=== PATIENT | male | born 1960 | race Caucasian/White ===

== ENCOUNTER 2020-11-14 16:39 | Inpatient (IN) | payer MEDICAID, SELFPAY ==
[2020-11-14] VITALS (7 sets, daily range): BP systolic 129–190; BP diastolic 80–130; PULSE 84–148; RESP 16–36; TEMP 35.8; O2SAT 95–99; BMI 21.9
--- NOTE | ~2020-11-14 | XR_ITS ---
EXAMINATION: XR CHEST CLINICAL INFORMATION: Shortness of breath. COPD. COMPARISON: Chest x-ray 07/21/2018 TECHNIQUE: Frontal portable view of the chest was obtained. 5:05 PM FINDINGS: There is a small subtle hazy airspace opacity in the mid lower lung involving both the right and left lungs. These are new since prior chest x-ray 07/21/2018. No focal consolidation. No pleural effusion or pneumothorax. Heart size is normal. Cardiac and mediastinal contours are normal. There is no pulmonary vascular congestion. Orthopedic plate and screw at lower cervical spine. XR/XR chest 1V IMPRESSION: Small subtle hazy airspace opacities in the mid lower lung bilaterally. Could be infectious or inflammatory in etiology. Follow-up PA lateral view of chest would be helpful.
--- NOTE | 2020-11-14 16:44 | ECG_ITS ---
Test Reason : DSYPNEA Blood Pressure : / mmHG Vent. Rate : 144 BPM Atrial Rate : 144 BPM P-R Int : 130 ms QRS Dur : 076 ms QT Int : 280 ms P-R-T Axes : 090 073 061 degrees QTc Int : 433 ms Poor data quality Sinus tachycardia Biatrial enlargement Abnormal ECG When compared with ECG of 16-JUL-2018 17:31, Vent. rate has increased BY 61 BPM Poor data quality in current ECG precludes serial comparison Referred By: Emma Wray Electronically Signed By:ERNESTO TORRES MD
[2020-11-14] MEDS: methylPREDNISolone Sod Succ/PF 125 MG/2 ML VIAL IVPUSH (16:54)
[2020-11-14] MEDS: Magnesium Sulfate/H2O 2 GM/50 ML PIGGYBACK IV (16:54)
[2020-11-14] MEDS: 0.9 % Sodium Chloride 1,000 ML 999 ML IVCONT ×2 (16:55→18:04)
[2020-11-14 16:56] LABS: MANUAL DIFF FLAG NO
[2020-11-14] MEDS: Albuterol Sulfate (0.083%) 2.5 MG/3 ML VIAL.NEB 10 MG INHALE (16:57)
[2020-11-14 16:58] LABS: Basophils Percent Auto 0.2 % (0-2); Eosinophils Absolute Auto 0.1 X10*3/uL (0.0-0.4); Eosinophils Percent Auto 1.1 % (0-4); Hematocrit 46.6 % (42-52); Hemoglobin 16.1 g/dl (14.0-18.0); Imm Gran Abs Auto 0.04 X10*3/uL (0.00-0.03); Imm Gran Pct Auto 0.4 % (0.0-0.4); Lymphocytes Absolute Auto 1.9 X10*3/uL (1.2-4.9); Lymphocytes Percent Auto 19.8 % (20-40); Mean Corpuscular HGB Conc 34.5 g/dl (31.0-36.0); Mean Corpuscular Hemoglobin 32.8 pg (27.0-33.0); Mean Corpuscular Volume 94.9 fL (80-98); Mean Platelet Volume 8.4 fL (9.4-12.4); Monocytes Absolute Auto 0.6 X10*3/uL (0.1-1.2); Monocytes Percent Auto 6.1 % (2-11); Neutrophils Absolute Auto 6.9 X10*3/uL (2.0-8.3); Neutrophils Percent Auto 72.4 % (45-73); Platelet Count 409 X10*3/uL (160-400); Red Blood Count 4.91 X10*6/uL (4.60-5.80); Red Cell Distribution Width 12.3 % (11.0-16.0); White Blood Count 9.6 X10*3/uL (4.8-10.8)
[2020-11-14 17:03] LABS: INTERNATIONAL NORM RATIO 1.1 (0.9-1.1); Prothrombin Time 12.5 SEC (10.8-13.0)
--- NOTE | 2020-11-14 17:11 | ED.GENADULT ---
HPI - General Adult General Chief complaint: Dyspnea Stated complaint: diff breathing Time Seen by Provider: 11/14/20 16:43 Source: EMS Mode of arrival: EMS Limitations: other (Shortness of breath) History of Present Illness HPI narrative: Patient comes to emergency room complaining of shortness of breath. Patient states it happens approximately 2 times a year that he has COPD exacerbations, triggered by the cold weather. Per EMS, patient was found at the bottom of the stairs sitting, gasping for air. Patient was started on CPAP, did not get any medications, brought to emergency room. Initial oxygen saturation 80% on room air. Patient denies chest pain MD complaint: Shortness of breath Related Data Home Medications Medication Instructions Recorded Confirmed albuterol sulfate [ProAir HFA] 2 puff INHALATION Q4H PRN 11/14/20 11/14/20 budesonide-formoterol [Symbicort] 2 puff PO BID 11/14/20 11/14/20 ipratropium-albuterol [Combivent 1 puff PO QID 11/14/20 11/14/20 Respimat] metoprolol tartrate 12.5 mg PO BID 11/14/20 11/14/20 paroxetine HCl 30 mg PO DAILY 11/14/20 11/14/20 Allergies Allergy/AdvReac Type Severity Reaction Status Date / Time No Known Allergies Allergy Unverified 06/05/20 19:34 [No Known Allergies*] Review of Systems Review of Systems: Constitutional : No Weight loss, No Fever, No Chills, No Night Sweats, No Fatigue, No Malaise ENT/Mouth : No Hearing loss, No Ear Pain, No Nasal Congestion, No Sinus Pain, No Hoarseness, No sore throat, No Rhinorrhea, No Swallowing Difficulty Eyes: No Eye Pain, No Swelling, No Redness, No Foreign Body, No Discharge, No Vision Changes Cardiovascular : No Chest Pain, No SOB, No Dyspnea on Exertion, No Orthopnea, No Edema, No Palpitations Respiratory : Complaining of cough, more sputum production, wheezing, No Smoke Exposure, complaining of Dyspnea Gastrointestinal : No Nausea, No Vomiting, No Diarrhea, No Constipation, No abdominal Pain, No Hematochezia, No Melena Genitourinary : no irregular bleeding, No Dysuria, No Urinary Frequency, No Hematuria, No Urinary Incontinence, No Urgency, No Flank Pain, No Urinary Flow Changes, No Hesitancy Musculoskeletal : No joint pain, No Myalgias, No Joint Swelling Skin : No Skin Lesions, No rash Neuro : No Weakness, No Numbness, No Paresthesias, No Loss of Consciousness, No Dizziness, No Headache Psych : No Anxiety/Panic, No Depression, No SI/HI/AH/VH, No Social Issues, Heme/Lymph: No Bruising, No Bleeding,No Lymphadenopathy Endocrine : No Polyuria, No Polydipsia, No Temperature Intolerance REPLACED BY [facility] Past Medical History Medical History COPD (chronic obstructive pulmonary disease) Social History Social History Household Members: Family Housing: House Do you presently have visiting nurse or other home services: No Smoked in Last 30 Days: No Use of substances other than those prescribed or required for medical reasons: No Have you been hit, kicked, punched, or otherwise hurt by someone within the past year? If so, by whom?: No Do you feel safe in your current relationship?: Yes Is there a partner from a previous relationship who is making you feel unsafe now?: No Are you made to feel afraid or neglected: No Advance Directives: No Advance Directives Information Provided: Yes Do you have thoughts of harming others: None Do you have a plan to hurt others: No Plan Recently lost weight without trying: No service: No Current occupational status: unemployed Physical Exam Vital Signs: Vital Signs: Last Vital Signs Temp 96.5 F L 11/14/20 23:47 Pulse 84 11/14/20 23:47 Resp 16 11/14/20 23:47 BP 154/80 H 11/14/20 23:47 Pulse Ox 97 11/14/20 23:47 Body Mass Index 21.9 Appearance: Alert. Oriented X3. In moderate distress due to shortness of breath, very anxious Eyes: Pupils equal, round and reactive to light. ENT: Pharynx normal. Neck: Normal inspection. Neck supple. No lymph nodes noted. No crepitus CVS: Normal heart rate and rhythm. Pulses normal. Normal S1 and S2 Respiratory: Moderate respiratory distress, decreased breath sounds bilaterally, bilateral mild wheezing no rales Abdomen: Soft and nontender. No rigidity. No distention. good BS x4 Skin: Skin warm and dry. Normal skin color. Normal skin turgor. Extremities: No lower extremity edema. No lower extremity edema. No Lacerations. No Rash Neuro: Oriented X 3. No motor deficit. No sensory deficit. Moving all extermities. No slurred speech. Course Course Course Narrative: On arrival to the emergency room, patient was put on BiPAP for an hour. Patient tolerated it well. Patient being weaned off. Currently on 4 L nasal cannula, oxygen saturation is 98%. Patient likely having a COPD exacerbation, lactic acid elevation likely secondary to prolonged hypoxia, sepsis is not suspected at this time. Patient has already been treated with levofloxacin and IV fluids. Patient's troponin 45.7, no ST changes on EKG, likely secondary to hypoxia and demand ischemia. Patient has no chest pain. Medical Decision Making Lab Data Result diagrams: 11/14/20 16:50 11/14/20 16:50 Labs: Lab Results 11/14/20 11/14/20 11/14/20 Range/Units 16:50 16:50 16:50 WBC 9.6 (4.8-10.8) X10*3/uL RBC 4.91 (4.60-5.80) X10*6/uL Hgb 16.1 (14.0-18.0) g/dl Hct 46.6 (42-52) % MCV 94.9 (80-98) fL MCH 32.8 (27.0-33.0) pg MCHC 34.5 (31.0-36.0) g/dl RDW 12.3 (11.0-16.0) % Plt Count 409 H (160-400) X10*3/uL MPV 8.4 L (9.4-12.4) fL Immature Gran % (Auto) 0.4 (0.0-0.4) % Neut % (Auto) 72.4 (45-73) % Lymph % (Auto) 19.8 L (20-40) % Page % (Auto) 6.1 (2-11) % Eos % (Auto) 1.1 (0-4) % Baso % (Auto) 0.2 (0-2) % Lymph # (Auto) 1.9 (1.2-4.9) X10*3/uL Page # (Auto) 0.6 (0.1-1.2) X10*3/uL Eos # (Auto) 0.1 (0.0-0.4) X10*3/uL Baso # (Auto) 0.0 (0.0-0.2) X10*3/uL Abs Immat Gran (auto) 0.04 H (0.00-0.03) X10*3/uL Absolute Neuts (auto) 6.9 (2.0-8.3) X10*3/uL Absolute Nucleated RBC 0.000 (0.0-0.012) X10*3/uL Nucleated RBC % (auto) 0.0 (0.0-0.2) /100WBC PT (10.8-13.0) SEC INR (0.9-1.1) Sodium 134 L (135-145) mmol/L Potassium 4.6 (3.3-5.1) mmol/L Chloride 96 (96-108) mmol/L Carbon Dioxide 27 (22-29) mmol/L Anion Gap 16 (12-20) BUN 7 L (9-16) mg/dL Creatinine 0.78 (0.5-1.4) mg/dL Estim Creat Clear Calc 92.7 Estimated GFR > 60 Random Glucose 143 H (60-115) mg/dL Lactic Acid 2.8 H* (0.5-2.0) mmol/L Lactic Acid Fup @ 2Hr (0.5-2.0) mmol/L Calcium 9.3 (8.4-10.2) mg/dL Total Bilirubin 0.5 (0.0-1.0) mg/dL Direct Bilirubin 0.2 (0.0-0.5) mg/dL AST 36 (5-37) U/L ALT 33 (0-40) U/L Alkaline Phosphatase 83 (39-117) U/L Troponin I High Sens (<3.5-35.0) ng/L B-Natriuretic Peptide (<100) pg/mL Total Protein 7.4 (6.5-8.0) g/dL Albumin 4.8 (3.5-5.0) g/dL Coronavirus (PCR) (Negative) Influenza Type A (PCR) (Negative) Influenza Type B (PCR) (Negative) RSV RNA Qual (PCR) (Negative) 11/14/20 11/14/20 11/14/20 Range/Units 16:50 16:50 18:01 WBC (4.8-10.8) X10*3/uL RBC (4.60-5.80) X10*6/uL Hgb (14.0-18.0) g/dl Hct (42-52) % MCV (80-98) fL MCH (27.0-33.0) pg MCHC (31.0-36.0) g/dl RDW (11.0-16.0) % Plt Count (160-400) X10*3/uL MPV (9.4-12.4) fL Immature Gran % (Auto) (0.0-0.4) % Neut % (Auto) (45-73) % Lymph % (Auto) (20-40) % Page % (Auto) (2-11) % Eos % (Auto) (0-4) % Baso % (Auto) (0-2) % Lymph # (Auto) (1.2-4.9) X10*3/uL Page # (Auto) (0.1-1.2) X10*3/uL Eos # (Auto) (0.0-0.4) X10*3/uL Baso # (Auto) (0.0-0.2) X10*3/uL Abs Immat Gran (auto) (0.00-0.03) X10*3/uL Absolute Neuts (auto) (2.0-8.3) X10*3/uL Absolute Nucleated RBC (0.0-0.012) X10*3/uL Nucleated RBC % (auto) (0.0-0.2) /100WBC PT 12.5 (10.8-13.0) SEC INR 1.1 (0.9-1.1) Sodium (135-145) mmol/L Potassium (3.3-5.1) mmol/L Chloride (96-108) mmol/L Carbon Dioxide (22-29) mmol/L Anion Gap (12-20) BUN (9-16) mg/dL Creatinine (0.5-1.4) mg/dL Estim Creat Clear Calc Estimated GFR Random Glucose (60-115) mg/dL Lactic Acid (0.5-2.0) mmol/L Lactic Acid Fup @ 2Hr (0.5-2.0) mmol/L Calcium (8.4-10.2) mg/dL Total Bilirubin (0.0-1.0) mg/dL Direct Bilirubin (0.0-0.5) mg/dL AST (5-37) U/L ALT (0-40) U/L Alkaline Phosphatase (39-117) U/L Troponin I High Sens 45.7 H (<3.5-35.0) ng/L B-Natriuretic Peptide 27 (<100) pg/mL Total Protein (6.5-8.0) g/dL Albumin (3.5-5.0) g/dL Coronavirus (PCR) NEGATIVE (Negative) Influenza Type A (PCR) NEGATIVE (Negative) Influenza Type B (PCR) NEGATIVE (Negative) RSV RNA Qual (PCR) NEGATIVE (Negative) 11/14/20 Range/Units 19:50 WBC (4.8-10.8) X10*3/uL RBC (4.60-5.80) X10*6/uL Hgb (14.0-18.0) g/dl Hct (42-52) % MCV (80-98) fL MCH (27.0-33.0) pg MCHC (31.0-36.0) g/dl RDW (11.0-16.0) % Plt Count (160-400) X10*3/uL MPV (9.4-12.4) fL Immature Gran % (Auto) (0.0-0.4) % Neut % (Auto) (45-73) % Lymph % (Auto) (20-40) % Page % (Auto) (2-11) % Eos % (Auto) (0-4) % Baso % (Auto) (0-2) % Lymph # (Auto) (1.2-4.9) X10*3/uL Page # (Auto) (0.1-1.2) X10*3/uL Eos # (Auto) (0.0-0.4) X10*3/uL Baso # (Auto) (0.0-0.2) X10*3/uL Abs Immat Gran (auto) (0.00-0.03) X10*3/uL Absolute Neuts (auto) (2.0-8.3) X10*3/uL Absolute Nucleated RBC (0.0-0.012) X10*3/uL Nucleated RBC % (auto) (0.0-0.2) /100WBC PT (10.8-13.0) SEC INR (0.9-1.1) Sodium (135-145) mmol/L Potassium (3.3-5.1) mmol/L Chloride (96-108) mmol/L Carbon Dioxide (22-29) mmol/L Anion Gap (12-20) BUN (9-16) mg/dL Creatinine (0.5-1.4) mg/dL Estim Creat Clear Calc Estimated GFR Random Glucose (60-115) mg/dL Lactic Acid (0.5-2.0) mmol/L Lactic Acid Fup @ 2Hr 1.6 (0.5-2.0) mmol/L Calcium (8.4-10.2) mg/dL Total Bilirubin (0.0-1.0) mg/dL Direct Bilirubin (0.0-0.5) mg/dL AST (5-37) U/L ALT (0-40) U/L Alkaline Phosphatase (39-117) U/L Troponin I High Sens (<3.5-35.0) ng/L B-Natriuretic Peptide (<100) pg/mL Total Protein (6.5-8.0) g/dL Albumin (3.5-5.0) g/dL Coronavirus (PCR) (Negative) Influenza Type A (PCR) (Negative) Influenza Type B (PCR) (Negative) RSV RNA Qual (PCR) (Negative) Imaging Data Chest x-ray: Radiologist's impression: FINDINGS: There is a small subtle hazy airspace opacity in the mid lower lung involving both the right and left lungs. These are new since prior chest x-ray 07/21/2018. No focal consolidation. No pleural effusion or pneumothorax. Heart size is normal. Cardiac and mediastinal contours are normal. There is no pulmonary vascular congestion. Orthopedic plate and screw at lower cervical spine. XR/XR chest 1V IMPRESSION: Small subtle hazy airspace opacities in the mid lower lung bilaterally. Could be infectious or inflammatory in etiology. Follow-up PA lateral view of chest would be helpful. ECG Data Attestation: I personally reviewed and interpreted this ECG as follows: (Sinus tachycardia, heart rate 111, no ST segment depressions or elevations, no T-wave inversions, QTC 481) Discharge Plan Discharge Clinical Impression: COPD exacerbation Patient Disposition: Admitted As Inpatient Interventions: Admission Worksheet (ED) Last Done: 11/15/20 00:24 Discharge Date/Time: 11/15/20 00:25
[2020-11-14 17:21] LABS: Alanine Aminotransferase 33 U/L (0-40); Albumin Level 4.8 g/dL (3.5-5.0); Alkaline Phosphatase 83 U/L (39-117); Anion Gap 16 (12-20); Aspartate Amino Transferase 36 U/L (5-37); Bilirubin Direct 0.2 mg/dL (0.0-0.5); Bilirubin Total 0.5 mg/dL (0.0-1.0); Blood Urea Nitrogen 7 mg/dL (9-16); Calcium 9.3 mg/dL (8.4-10.2); Carbon Dioxide 27 mmol/L (22-29); Chloride 96 mmol/L (96-108); Creatinine Clr Calc Pharmacy 92.7; Estimated Glomerular Filt Rate > 60; Glucose Random 143 mg/dL (60-115); Potassium 4.6 mmol/L (3.3-5.1); Sodium 134 mmol/L (135-145); Total Protein 7.4 g/dL (6.5-8.0)
--- NOTE | 2020-11-14 17:25 | PC.NURSE ---
PT PRESENTS TO ED VIA EMS FROM HOME C/O SOB. UPON ARRIVAL ON [employer] [facility] FITTING CPAP AT 7L O2 W/ SPO2 95% RR 40, PT IN TRIPOD POSITION USING ACCESSORY MUSCLES, LABORED BREATHING. PT REPORTS HAVING INCREASING SOB X1 MONTH BUT SIGNIFICANTLY WORSE TODAY, PT REPORTS HX OF SAME AND PREVIOUS INTUBATION. PT ST IN 140'S ON TELE UPON ARRIVAL. DR DAVENPORT TO BEDSIDE. PT'S ASHER SHAVED TO ALLOW FOR PROPER PLACEMENT OF BIPAP MASK, PT TOLERATING BIPAP WELL. AFTER ~15 MIN IN BIPAP BOTH RR AND HR DECREASED, PT APPEARS IN LESS DISTRESS, PT NOW C/O BEING VERY TIRED, ASKING TO GO TO SLEEP, ADVISED BY THIS RN OK TO GO TO SLEEP. 2 IV'S ESTABLISHED, LABS DRAWN, PT MEDICATED PER EMAR. PT AWARE/AGREEABLE TO PLAN OF CARE.
[2020-11-14 17:27] LABS: Lactic Acid 2.8 mmol/L (0.5-2.0)
[2020-11-14 17:36] LABS: B Type Natriuretic Peptide 27 pg/mL (<100); Troponin-I High Sensitivity 45.7 ng/L (<3.5-35.0)
[2020-11-14] MEDS: levoFLOXacin/D5W 500 MG/100 ML PIGGYBACK 100 MG IV (18:04)
[2020-11-14 18:54] LABS: Reflex Lactate? Lactic Acid Added
[2020-11-14 19:33] LABS: Influenza A PCR NEGATIVE (Negative); Influenza B PCR NEGATIVE (Negative); Resp Syncy Virus RNA Qual PCR NEGATIVE (Negative); SARS COV2 PCR INHOUSE NEGATIVE (Negative)
[2020-11-14 20:12] LABS: ~Lactic Acid-LAB USE ONLY 1.6 mmol/L (0.5-2.0)
--- NOTE | 2020-11-14 20:14 | PC.NURSE ---
PT UPRIGHT IN BED, OFF BIPAP, ON 3L O2 NC, SPO2 REMAINS >95%, PT REPORTS FEELING MARKEDLY IMPROVED SINCE ARRIVAL, VITALS NOTABLY IMPROVED, PT IN NAD. PT AWARE/AGREEABLE TO PENDING ADMIT.
--- NOTE | 2020-11-14 20:46 | PM.IMHP ---
History of Present Illness Date of Service: 11/14/20 Chief Complaint: Shortness of breath This is a 60-year-old male with past medical history of COPD who presents to the hospital with complaints of shortness of breath that started about 1 week ago. Patient reports that he has been taking prednisone by his PCP but has not helped with his symptoms. He is also complaining of cough, sputum production, he has no fever or chills. On arrival of EMS patient was found to be satting 80% on room air. He was placed on BiPAP initially when he arrived to the hospital. Currently on 4 L of nasal cannula satting 90-95%. Patient denies any chest pain, denies any headache, change in vision, no abdominal pain nausea or vomiting, no diarrhea constipation, no urinary symptoms and no lower extremity edema. On arrival to the ED patient's vitals were significant for a heart rate of 148, respiratory rate of 36, blood pressure 190/130 that improved to 150 over 80s at the time of my interview, Labs are significant for WBC count of 9.6, sodium 134, potassium 4.6, lactic acid of 2.8 improved to 1.6, initial high sensitivity troponin of 45.7 with no complaints of chest pain, COVID-19 negative, influenza A/B and RSV negative. Chest x-ray shows small subtle hazy airspace opacity in the mid lower lung bilaterally. 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 Family history: Denies Social history: Comes from home, quit using tobacco and alcohol about 3 months ago, denies any illicit drugs Review of Systems Review of Systems: Yes all other systems are reviewed and are negative [facility] Medical History (Updated 11/15/20 @ 05:21 by Deshawn Mcclain MD) COPD (chronic obstructive pulmonary disease) Pertinent family history: Denies Surgical History (Updated 11/15/20 @ 05:19 by Deshawn Mcclain MD) History 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 Social History Household Members: Family Housing: House Do you presently have visiting nurse or other home services: No Smoked in Last 30 Days: No Use of substances other than those prescribed or required for medical reasons: No Have you been hit, kicked, punched, or otherwise hurt by someone within the past year? If so, by whom?: No Do you feel safe in your current relationship?: Yes Is there a partner from a previous relationship who is making you feel unsafe now?: No Are you made to feel afraid or neglected: No Advance Directives: No Advance Directives Information Provided: Yes Do you have thoughts of harming others: None Do you have a plan to hurt others: No Plan Recently lost weight without trying: No service: No Current occupational status: unemployed Meds Allergies Allergy/AdvReac Type Severity Reaction Status Date / Time No Known Allergies Allergy Unverified 06/05/20 19:34 [No Known Allergies*] Home Medications Medication Instructions Recorded Confirmed Last Taken Type albuterol sulfate [ProAir HFA] 2 puff INHALATION Q4H PRN 11/14/20 11/14/20 Unknown History budesonide-formoterol [Symbicort] 2 puff PO BID 11/14/20 11/14/20 Unknown History ipratropium-albuterol [Combivent 1 puff PO QID 11/14/20 11/14/20 Unknown History Respimat] metoprolol tartrate 12.5 mg PO BID 11/14/20 11/14/20 Unknown History paroxetine HCl 30 mg PO DAILY 11/14/20 11/14/20 Unknown History Physical Exam Vital Signs and Narrative: Vital Signs: Last Vital Signs Pulse 107 H 11/14/20 19:47 Resp 22 H 11/14/20 19:47 BP 129/93 H 11/14/20 19:47 Pulse Ox 95 11/14/20 19:47 Body Mass Index 21.9 Const: General: cooperative and no acute distress Orientation/consciousness: patient oriented x3 Eyes: General: appearance normal, both eyes and all related structures Resp: Other: Audible wheezing, using accessory muscles Effort & Inspection: normal respiratory effort and able to speak in complete sentences Cardio: Rate: regular rate Rhythm: regular rhythm GI: Palpation (GI): Soft to palpation Auscultation: normal bowel sounds Skin: General skin exam: no rashes or lesions noted Neuro: General: patient oriented x3 Cognition (Neuro): normal cognition Extrem: Other: Has amputation of all of his right toes due to accident in the past General: Yes no pedal edema Results Labs CBC and Chem 7: 11/14/20 16:50 11/14/20 16:50 Labs: Laboratory Results - last 24 hr 11/14/20 11/14/20 11/14/20 16:50 16:50 16:50 MCV 94.9 MCH 32.8 MCHC 34.5 RDW 12.3 Plt Count 409 H MPV 8.4 L Immature Gran % (Auto) 0.4 Neut % (Auto) 72.4 Lymph % (Auto) 19.8 L [place] % (Auto) 6.1 Eos % (Auto) 1.1 Baso % (Auto) 0.2 Lymph # (Auto) 1.9 [place] # (Auto) 0.6 Eos # (Auto) 0.1 Baso # (Auto) 0.0 Abs Immat Gran (auto) 0.04 H Absolute Neuts (auto) 6.9 Absolute Nucleated RBC 0.000 Nucleated RBC % (auto) 0.0 PT INR Anion Gap 16 Estim Creat Clear Calc 92.7 Estimated GFR > 60 Random Glucose 143 H Lactic Acid 2.8 H* Lactic Acid Fup @ 2Hr Calcium 9.3 Total Bilirubin 0.5 Direct Bilirubin 0.2 AST 36 ALT 33 Alkaline Phosphatase 83 Troponin I High Sens B-Natriuretic Peptide Total Protein 7.4 Albumin 4.8 Coronavirus (PCR) Influenza Type A (PCR) Influenza Type B (PCR) RSV RNA Qual (PCR) 11/14/20 11/14/20 11/14/20 16:50 16:50 18:01 MCV MCH MCHC RDW Plt Count MPV Immature Gran % (Auto) Neut % (Auto) Lymph % (Auto) [place] % (Auto) Eos % (Auto) Baso % (Auto) Lymph # (Auto) [place] # (Auto) Eos # (Auto) Baso # (Auto) Abs Immat Gran (auto) Absolute Neuts (auto) Absolute Nucleated RBC Nucleated RBC % (auto) PT 12.5 INR 1.1 Anion Gap Estim Creat Clear Calc Estimated GFR Random Glucose Lactic Acid Lactic Acid Fup @ 2Hr Calcium Total Bilirubin Direct Bilirubin AST ALT Alkaline Phosphatase Troponin I High Sens 45.7 H B-Natriuretic Peptide 27 Total Protein Albumin Coronavirus (PCR) NEGATIVE Influenza Type A (PCR) NEGATIVE Influenza Type B (PCR) NEGATIVE RSV RNA Qual (PCR) NEGATIVE 11/14/20 19:50 MCV MCH MCHC RDW Plt Count MPV Immature Gran % (Auto) Neut % (Auto) Lymph % (Auto) [place] % (Auto) Eos % (Auto) Baso % (Auto) Lymph # (Auto) [place] # (Auto) Eos # (Auto) Baso # (Auto) Abs Immat Gran (auto) Absolute Neuts (auto) Absolute Nucleated RBC Nucleated RBC % (auto) PT INR Anion Gap Estim Creat Clear Calc Estimated GFR Random Glucose Lactic Acid Lactic Acid Fup @ 2Hr 1.6 Calcium Total Bilirubin Direct Bilirubin AST ALT Alkaline Phosphatase Troponin I High Sens B-Natriuretic Peptide Total Protein Albumin Coronavirus (PCR) Influenza Type A (PCR) Influenza Type B (PCR) RSV RNA Qual (PCR) Imaging Radiologist's Impressions: Impressions Chest X-Ray 11/14/20 16:44 IMPRESSION: Small subtle hazy airspace opacities in the mid lower lung bilaterally. Could be infectious or inflammatory in etiology. Follow-up PA lateral view of chest would be helpful. Assessment and Plan (1) COPD exacerbation: Status: Acute (2) Acute respiratory failure with hypoxia: Status: Acute (3) Community acquired pneumonia: Status: Acute This is a 60-year-old male with past medical history of COPD presents the hospital COPD exacerbation # acute hypoxic respiratory failure - most likely secondary to COPD as well as pneumonia - patient does not use oxygen at baseline - reports symptoms of cough, sputum production, dyspnea with history of COPD - found to be satting 80% on room air on arrival of EMS, patient required BiPAP for a short period of time while in the ED, currently on 4 L of oxygen Plan: - continue O2 supplement as required - management of COPD with steroids, breathing treatments - IV antibiotics for the pneumonia - will continue to monitor respiratory status # COPD exacerbation - most likely secondary to pneumonia - will start him on Solu-Medrol 40 IV b.i.d., DuoNebs p.r.n. as well as scheduled - O2 as required # community-acquired pneumonia - bacterial versus viral - COVID-19 PCR negative - will start patient on ceftriaxone, azithromycin, - follow blood cultures DVT prophylaxis: Lovenox
--- NOTE | 2020-11-14 22:26 | MHC.CM.PN ---
CM met with pt. A&Ox#. Very pleasant. Speaking in short sentences secondary to COPD exacerbation. O2sat 96% on 4 liters, but sl SOB. Lives with Arline and Rodo Velazquez x 17 years. Friends. Help him when needed. Very happy with living arrangement. Has nebulizer at home. States he was using his inhalers more that ordered secondary to COPD exacerbation, so they ran out 4 days ago. HCP is Arline Velazquez and is on file. PCP is Dr. Shayne Hess in [place], [place]. Pt states he doesn't usually need STR after his COPD exacerbations. D/C plan is home without services. Friends to transport. CM to monitor for d/c needs.
[2020-11-14] MEDS: 0.9 % Sodium Chloride Flush 3 ML SYRINGE IVFLUSH (23:59)
[2020-11-15] VITALS (7 sets, daily range): BP systolic 118–133; BP diastolic 58–92; PULSE 81–103; RESP 18–19; TEMP 36.2–37.1; O2SAT 91–99
[2020-11-15] MEDS: Enoxaparin Sodium 40 MG/0.4 ML SYRINGE SUBCUT
--- NOTE | 2020-11-15 | ECG_ITS ---
Test Reason : DSYPNEA Blood Pressure : / mmHG Vent. Rate : 111 BPM Atrial Rate : 111 BPM P-R Int : 114 ms QRS Dur : 074 ms QT Int : 354 ms P-R-T Axes : 088 085 079 degrees QTc Int : 481 ms Artifact in tracing Sinus tachycardia Otherwise normal ECG When compared with ECG of 14-NOV-2020 16:56, No significant changes seen Referred By: Emma Wray Electronically Signed By:ARIEL RECIO
[2020-11-15] MEDS: cefTRIAXone sodium 1 GM in 0.9 % Sodium Chloride 50 ML IV (02:08)
[2020-11-15] MEDS: Albuterol/Iprat 2.5/0.5MG 3 ML AMPUL.NEB INHALE ×3 (02:14→11:34)
[2020-11-15] MEDS: Azithromycin 500 MG in 0.9 % Sodium Chloride 250 ML 125 MG IV (02:51)
[2020-11-15 08:13] LABS: Hematocrit 37.8 % (42-52); Hemoglobin 13.4 g/dl (14.0-18.0); Imm Gran Abs Auto 0.01 X10*3/uL (0.00-0.03); Imm Gran Pct Auto 0.3 % (0.0-0.4); Lymphocytes Absolute Auto 0.5 X10*3/uL (1.2-4.9); Lymphocytes Percent Auto 13.1 % (20-40); MANUAL DIFF FLAG SCAN; Mean Corpuscular HGB Conc 35.4 g/dl (31.0-36.0); Mean Corpuscular Hemoglobin 32.6 pg (27.0-33.0); Mean Platelet Volume 8.7 fL (9.4-12.4); Monocytes Absolute Auto 0.1 X10*3/uL (0.1-1.2); Monocytes Percent Auto 2.3 % (2-11); Neutrophils Absolute Auto 3.2 X10*3/uL (2.0-8.3); Neutrophils Percent Auto 84.3 % (45-73); Platelet Count 369 X10*3/uL (160-400); Red Blood Count 4.11 X10*6/uL (4.60-5.80); Red Cell Distribution Width 12.2 % (11.0-16.0); SCAN SMEAR FLAG 1; White Blood Count 3.8 X10*3/uL (4.8-10.8)
[2020-11-15 08:33] LABS: Anion Gap 14 (12-20); Blood Urea Nitrogen 9 mg/dL (9-16); Calcium 8.6 mg/dL (8.4-10.2); Carbon Dioxide 23 mmol/L (22-29); Chloride 100 mmol/L (96-108); Creatinine Clr Calc Pharmacy 107.9; Estimated Glomerular Filt Rate > 60; Glucose Random 122 mg/dL (60-115); Potassium 4.8 mmol/L (3.3-5.1); Sodium 132 mmol/L (135-145)
[2020-11-15 08:43] LABS: SLIDE REVIEW VERIFIED
[2020-11-15 09:01] LABS: Troponin-I High Sensitivity 183.8 ng/L (<3.5-35.0)
[2020-11-15] MEDS: 0.9 % Sodium Chloride Flush 3 ML SYRINGE IVFLUSH (09:21)
--- NOTE | 2020-11-15 11:40 | PC.NURSE ---
Pt admit order was to telemetry but patient was not on residential monitor. Nursing bleach supervisor and Dr. Burgess made aware, awaiting residential monitor.
--- NOTE | 2020-11-15 12:48 | HO.PM.IMPN ---
Subjective Subjective Date of Service: 11/15/20 Interval History: Patient feels better this morning complaining of less shortness of breath and cough, no fever chills denies chest discomfort. General no headache ,no dizziness no fever chills. CVS no chest pain, no palpitation. Respiratory cough , shortness of breath Gastrointestinal no nausea no vomiting, no abdominal pain Physical Exam Vital Signs: Vital Signs: Last Vital Signs Temp 98.7 F 11/15/20 11:54 Pulse 103 H 11/15/20 11:54 Resp 19 11/15/20 11:54 BP 125/58 L 11/15/20 11:54 Pulse Ox 96 11/15/20 11:54 Body Mass Index 21.9 General no acute distress. Neck is supple no JVD. CVS regular rate rhythm, Respiratory lungs coarse breath sounds, no respiratory distress, no wheeze, no rhonchi. Gastrointestinal abdomen soft, nontender, bowel sounds audible, no no guarding , no rigidity. Extremities no clubbing cyanosis or edema. Neuro nonfocal Skin no rash Objective Data Current Medications Generic Name Dose Route Start Last Admin Trade Name Freq PRN Reason Stop Dose Admin Acetaminophen 650 mg 11/14/20 23:29 Acetaminophen 325 Mg Tablet PO Q6H PRN Pain, Mild (Pain Scale 1-3) Albuterol/Ipratropium 3 ml 11/15/20 08:00 11/15/20 11:34 Albuterol/Iprat 2.5/0.5mg 3 Ml Ampul.Neb INHALE 3 ml RQ4H WHILE AWAKE DESTINEY Administration Albuterol/Ipratropium 3 ml 11/14/20 23:29 11/15/20 02:14 Albuterol/Iprat 2.5/0.5mg 3 Ml Ampul.Neb INHALE 3 ml RQ4H PRN Administration Shortness of Breath Docusate Sodium 100 mg 11/14/20 23:29 Docusate Sodium 100 Mg Capsule PO DAILY PRN Constipation Enoxaparin Sodium 40 mg 11/14/20 23:29 11/15/20 00:00 Enoxaparin Sodium 40 Mg/0.4 Ml Syringe SUBCUT 40 mg Q24H DESTINEY Administration Ceftriaxone Sodium 1 gm/ 50 mls @ 100 mls/hr 11/15/20 02:00 11/15/20 02:57 Sodium Chloride IV Infused Q24H DESTINEY Infusion Azithromycin 500 mg/ Sodium 250 mls @ 125 mls/hr 11/15/20 03:00 11/15/20 04:55 Chloride IV Infused Q24H DESTINEY Infusion Methylprednisolone Sodium Succinate 40 mg 11/15/20 00:00 11/15/20 12:18 Methylprednisolone Sod Succ/Pf 40 Mg/Ml Vial IVPUSH 40 mg Q12H DESTINEY Administration Ondansetron HCl 4 mg 11/14/20 23:29 Ondansetron Hcl 4 Mg/2 Ml Vial IVPUSH Q8H PRN Nausea and Vomiting Sodium Chloride 3 ml 11/15/20 00:00 11/15/20 09:21 0.9 % Sodium Chloride Flush 3 Ml Syringe IVFLUSH 3 ml QSHIFT DESTINEY Administration Labs CBC & Chem 7: 11/15/20 07:55 11/15/20 07:55 Assessment and Plan (1) Acute respiratory failure with hypoxia: Status: Acute (2) COPD exacerbation: Status: Acute (3) Community acquired pneumonia: Status: Acute Assessment and Plan: 60-year-old male with past medical history of COPD presents the hospital COPD exacerbation # acute hypoxic respiratory failure secondary to COPD exac and pneumonia Patient feeling better since admission, continue oxygen support, continue IV antibiotics, patient does not use oxygen at baseline therefore will wean oxygen Add cough medication, patient was found found to be satting 80% on room air on arrival of EMS, patient required BiPAP for a short period of time while in the ED, currently on 2 L of oxygen # acute COPD exacerbation - most likely secondary to pneumonia, continue Solu-Medrol 40 IV b.i.d., DuoNebs p.r.n. as well as scheduled, continue home inhalers and oxygen Patient quit smoking 3 months ago support provided. # community-acquired pneumonia - bacterial versus viral, COVID-19 PCR negative, on IV ceftriaxone, and azithromycin day 2/5, follow blood cultures # elevated troponin patient noted to have elevated troponin but it remains stable, patient has no chest pain likely due to hypoxia is strongly recommend to continue to abstain from smoking will check lipid profile. # mild chronic hyponatremia sodium 132 will follow BMP DVT prophylaxis: Lovenox
[2020-11-15 12:51] LABS: Troponin-I High Sensitivity 189.7 ng/L (<3.5-35.0)
[2020-11-15 13:12] LABS: Cholesterol 198 mg/dL; HDL Cholesterol 61 mg/dL; LDL Cholesterol Calculated 125 mg/dl; Triglycerides 64 mg/dL
[2020-11-15] MEDS: guaiFENesin DM 200/20/10 ML 10 ML SYRUP PO (13:13)
--- NOTE | 2020-11-15 15:20 | PM.DS ---
DS: Providers Provider Date of Service: 11/15/20 Date of admission: 11/14/20 20:10 Primary care physician: Unknown Physician DS: Diagnosis Discharge Diagnosis (1) Acute respiratory failure with hypoxia: Status: Acute (2) COPD exacerbation: Status: Acute (3) Community acquired pneumonia: Status: Acute DS: Medications Discharge Medications Home Medications: Home Medications Medication Instructions Recorded Confirmed Combivent Respimat 1 puff PO QID 11/14/20 11/14/20 albuterol sulfate [ProAir HFA] 2 puff INHALATION Q4H PRN 11/14/20 11/14/20 budesonide-formoterol [Symbicort] 2 puff PO BID 11/14/20 11/14/20 metoprolol tartrate 12.5 mg PO BID 11/14/20 11/14/20 paroxetine HCl 30 mg PO DAILY 11/14/20 11/14/20 Previous Rx's Medication Instructions Recorded azithromycin 250 mg PO DAILY 5 Days #5 tab 11/15/20 cefuroxime axetil 500 mg PO BID #10 tab 11/15/20 dextromethorphan-guaifenesin 10 ml PO Q6H #240 ml 11/15/20 prednisone 20 mg PO DAILY #5 tab 11/15/20 DS: Summary Hospital Course Hospital Course: Chief Complaint: Shortness of breath This is a 60-year-old male with past medical history of COPD who presents to the hospital with complaints of shortness of breath that started about 1 week ago. Patient reports that he has been taking prednisone by his PCP but has not helped with his symptoms. He is also complaining of cough, sputum production, he has no fever or chills. On arrival of EMS patient was found to be satting 80% on room air. He was placed on BiPAP initially when he arrived to the hospital. Currently on 4 L of nasal cannula satting 90-95%. Patient denies any chest pain, denies any headache, change in vision, no abdominal pain nausea or vomiting, no diarrhea constipation, no urinary symptoms and no lower extremity edema. On arrival to the ED patient's vitals were significant for a heart rate of 148, respiratory rate of 36, blood pressure 190/130 that improved to 150 over 80s at the time of my interview, Labs are significant for WBC count of 9.6, sodium 134, potassium 4.6, lactic acid of 2.8 improved to 1.6, initial high sensitivity troponin of 45.7 with no complaints of chest pain, COVID-19 negative, influenza A/B and RSV negative. Chest x-ray shows small subtle hazy airspace opacity in the mid lower lung bilaterally. Hospital course 60-year-old male with past medical history of COPD presents the hospital COPD exacerbation # acute hypoxic respiratory failure secondary to COPD exac and pneumonia Patient shortness of breath resolved his oxygenation improved currently on room air with finger oximetry 92-94% patient treated with IV steroids, IV antibiotic azithromycin and ceftriaxone patient wishes to be discharged home, since he is feeling better will discharge him home on 5 more days of by mouth steroids, by mouth azithromycin and Ceftin recommended to use DuoNeb nebulizers 4 times # community-acquired pneumonia COVID-19 PCR negative, patient with no fever chills no leukocytosis will treat for total 5 days of antibiotic , blood cultures x2 remains pending # elevated troponin patient noted to have elevated troponin but it remains flat, patient has no chest pain likely due to hypoxia is strongly recommend to continue to abstain from smoking Total cholesterol 198 with an LDL of 125 no further intervention required. # mild chronic hyponatremia sodium 132 advised outpatient follow-up . Time Spent with Patient Time attestation: Total time spent providing and/or coordinating discharge services: Discharge coordination time: Greater than 30 minutes Physical Exam Vital Signs: Vital Signs: Last Vital Signs Temp 98.7 F 11/15/20 11:54 Pulse 103 H 11/15/20 11:54 Resp 19 11/15/20 11:54 BP 125/58 L 11/15/20 11:54 Pulse Ox 96 11/15/20 11:54 Body Mass Index 21.9 General no acute distress. Neck is supple no JVD. CVS regular rate rhythm, Respiratory lungs coarse breath sounds, no respiratory distress, no wheeze, no rhonchi. Gastrointestinal abdomen soft, nontender, bowel sounds audible, no no guarding , no rigidity. Extremities no clubbing cyanosis or edema. Neuro nonfocal Skin no rash DS: Data Data Completed and Pending Labs on day of discharge: Laboratory Results - last 24 hr 11/14/20 11/14/20 11/14/20 16:50 16:50 16:50 WBC 9.6 RBC 4.91 Hgb 16.1 Hct 46.6 MCV 94.9 MCH 32.8 MCHC 34.5 RDW 12.3 Plt Count 409 H MPV 8.4 L Immature Gran % (Auto) 0.4 Neut % (Auto) 72.4 Lymph % (Auto) 19.8 L [place] % (Auto) 6.1 Eos % (Auto) 1.1 Baso % (Auto) 0.2 Lymph # (Auto) 1.9 [place] # (Auto) 0.6 Eos # (Auto) 0.1 Baso # (Auto) 0.0 Abs Immat Gran (auto) 0.04 H Absolute Neuts (auto) 6.9 Absolute Nucleated RBC 0.000 Nucleated RBC % (auto) 0.0 Smear Tech's Comments PT INR Sodium 134 L Potassium 4.6 Chloride 96 Carbon Dioxide 27 Anion Gap 16 BUN 7 L Creatinine 0.78 Estim Creat Clear Calc 92.7 Estimated GFR > 60 Random Glucose 143 H Lactic Acid 2.8 H* Lactic Acid Fup @ 2Hr Calcium 9.3 Total Bilirubin 0.5 Direct Bilirubin 0.2 AST 36 ALT 33 Alkaline Phosphatase 83 Troponin I High Sens B-Natriuretic Peptide Total Protein 7.4 Albumin 4.8 Triglycerides Cholesterol LDL Cholesterol, Calc HDL Cholesterol Coronavirus (PCR) Influenza Type A (PCR) Influenza Type B (PCR) RSV RNA Qual (PCR) 11/14/20 11/14/20 11/14/20 16:50 16:50 18:01 WBC RBC Hgb Hct MCV MCH MCHC RDW Plt Count MPV Immature Gran % (Auto) Neut % (Auto) Lymph % (Auto) [place] % (Auto) Eos % (Auto) Baso % (Auto) Lymph # (Auto) [place] # (Auto) Eos # (Auto) Baso # (Auto) Abs Immat Gran (auto) Absolute Neuts (auto) Absolute Nucleated RBC Nucleated RBC % (auto) Smear Tech's Comments PT 12.5 INR 1.1 Sodium Potassium Chloride Carbon Dioxide Anion Gap BUN Creatinine Estim Creat Clear Calc Estimated GFR Random Glucose Lactic Acid Lactic Acid Fup @ 2Hr Calcium Total Bilirubin Direct Bilirubin AST ALT Alkaline Phosphatase Troponin I High Sens 45.7 H B-Natriuretic Peptide 27 Total Protein Albumin Triglycerides Cholesterol LDL Cholesterol, Calc HDL Cholesterol Coronavirus (PCR) NEGATIVE Influenza Type A (PCR) NEGATIVE Influenza Type B (PCR) NEGATIVE RSV RNA Qual (PCR) NEGATIVE 11/14/20 11/15/20 11/15/20 19:50 07:55 07:55 WBC 3.8 L RBC 4.11 L Hgb 13.4 L Hct 37.8 L MCV 92.0 MCH 32.6 MCHC 35.4 RDW 12.2 Plt Count 369 MPV 8.7 L Immature Gran % (Auto) 0.3 Neut % (Auto) 84.3 H Lymph % (Auto) 13.1 L [place] % (Auto) 2.3 Eos % (Auto) 0.0 Baso % (Auto) 0.0 Lymph # (Auto) 0.5 L [place] # (Auto) 0.1 Eos # (Auto) 0.0 Baso # (Auto) 0.0 Abs Immat Gran (auto) 0.01 Absolute Neuts (auto) 3.2 Absolute Nucleated RBC 0.000 Nucleated RBC % (auto) 0.0 Smear Tech's Comments VERIFIED PT INR Sodium 132 L Potassium 4.8 Chloride 100 Carbon Dioxide 23 Anion Gap 14 BUN 9 Creatinine 0.67 Estim Creat Clear Calc 107.9 Estimated GFR > 60 Random Glucose 122 H Lactic Acid Lactic Acid Fup @ 2Hr 1.6 Calcium 8.6 D Total Bilirubin Direct Bilirubin AST ALT Alkaline Phosphatase Troponin I High Sens B-Natriuretic Peptide Total Protein Albumin Triglycerides 64 Cholesterol 198 LDL Cholesterol, Calc 125 HDL Cholesterol 61 Coronavirus (PCR) Influenza Type A (PCR) Influenza Type B (PCR) RSV RNA Qual (PCR) 11/15/20 11/15/20 07:55 11:57 WBC RBC Hgb Hct MCV MCH MCHC RDW Plt Count MPV Immature Gran % (Auto) Neut % (Auto) Lymph % (Auto) [place] % (Auto) Eos % (Auto) Baso % (Auto) Lymph # (Auto) [place] # (Auto) Eos # (Auto) Baso # (Auto) Abs Immat Gran (auto) Absolute Neuts (auto) Absolute Nucleated RBC Nucleated RBC % (auto) Smear Tech's Comments PT INR Sodium Potassium Chloride Carbon Dioxide Anion Gap BUN Creatinine Estim Creat Clear Calc Estimated GFR Random Glucose Lactic Acid Lactic Acid Fup @ 2Hr Calcium Total Bilirubin Direct Bilirubin AST ALT Alkaline Phosphatase Troponin I High Sens 183.8 H D 189.7 H B-Natriuretic Peptide Total Protein Albumin Triglycerides Cholesterol LDL Cholesterol, Calc HDL Cholesterol Coronavirus (PCR) Influenza Type A (PCR) Influenza Type B (PCR) RSV RNA Qual (PCR) Discharge Plan Discharge Patient Disposition: Home, Self-Care Referrals: Physician,Unknown [Primary Care Provider] - Discharge Medications: New prednisone 20 mg tablet 20 mg PO DAILY Qty: 5 RF: 0 azithromycin 250 mg tablet 250 mg PO DAILY 5 Days Qty: 5 RF: 0 cefuroxime axetil 500 mg tablet 500 mg PO BID Qty: 10 RF: 0 dextromethorphan-guaifenesin 10-100 mg/5 mL Syrup 10 ml PO Q6H Qty: 240 RF: 0 Continued paroxetine HCl 30 mg tablet 30 mg PO DAILY RF: 0 albuterol sulfate [ProAir HFA] 90 mcg/actuation HFA aerosol inhaler 2 puff inhalation Q4H PRN (Reason: wheezing) RF: 0 budesonide-formoterol [Symbicort] 160-4.5 mcg/actuation HFA aerosol inhaler 2 puff PO BID RF: 0 Combivent Respimat 20-100 mcg/actuation mist 1 puff PO QID RF: 0 metoprolol tartrate 25 mg Tablet 12.5 mg PO BID RF: 0 Discharge Orders: Discharge Order (Routine); Ordered 11/15/20 Ordered By: Leslie Burgess Diet: advance to usual diet Activity on Discharge: As tolerated Stand Alone Forms: Patient Portal Discharge page Care Plan Goals: Strongly recommend to continue to abstain from smoking/use add DuoNeb nebulizers 4 times a day for next couple days Health Concerns: COPD/pneumonia/hypoxia Plan of Treatment: Follow-up with primary care physician and take all medication as adviced
== END 2020-11-15 15:41 | disposition home or self-care (01) | DRG 140 ==
LOC: HO.ED 19:13 → HO.EDOVER 20:52 → HO.S3 21:34
PROVIDERS: Admitting Provider Internal Medicine; Emergency Provider Emergency Medicine; Visit Provider Hospitalist
DX: J44.0 Chronic obstructive pulmonary disease with (acute) lower respiratory infection (principal); J96.01 Acute respiratory failure with hypoxia; J18.9 Pneumonia, unspecified organism; J44.1 Chronic obstructive pulmonary disease with (acute) exacerbation; E87.1 Hypo-osmolality and hyponatremia; Z87.891 Personal history of nicotine dependence; Z20.822 Contact with and (suspected) exposure to COVID-19; Z79.52 Long term (current) use of systemic steroids; Z79.899 Other long term (current) drug therapy
CPT/HCPCS: 0241U; 36415; 71045; 80048; 80061; 80076; 83605; 83880; 84484; 85025; 85610; 87040; 93005; 94640; 94644; 94660; 96361; 96365; 96368; 96375; 99285; J0456; J0696; J1650; J1956; J2920; J2930; J3475

== ENCOUNTER 2023-05-16 21:40 | Inpatient (IN) | payer OTHER, SELFPAY ==
--- NOTE | ~2023-05-16 | XR_ITS ---
EXAMINATION: XR chest 1V CLINICAL INFORMATION: Reason for Exam copd, sob COMPARISON: Prior x-ray 2020 TECHNIQUE: XR chest 1V Lungs and Joseline: Lungs are hyperinflated. Flattening of the hemidiaphragm and increased AP diameter suggest underlying air trapping disease. There is mild diffuse increased interstitial lung marking. Pleura: Normal. Costophrenic angles are sharp. No pneumothorax. Heart: The heart is normal in size. Mediastinum: The mediastinum is within normal limits.. Bones: Skeletal structures included are normal for patient's age. XR/XR chest 1V IMPRESSION: Hyperinflated lungs suggesting air trapping disease such as COPD. No focal consolidation.
[2023-05-16 21:43] VITALS: BP 184/104; BP 190/131; PULSE 120; PULSE 123; RESP 26; TEMP 36.2; O2SAT 89; O2SAT 99; BMI 17.9
--- NOTE | 2023-05-16 21:43 | ECG_ITS ---
Test Reason : SOB Blood Pressure : / mmHG Vent. Rate : 125 BPM Atrial Rate : 125 BPM P-R Int : 126 ms QRS Dur : 072 ms QT Int : 298 ms P-R-T Axes : 060 064 074 degrees QTc Int : 430 ms Poor data quality, interpretation may be adversely affected Sinus tachycardia Low voltage QRS Borderline ECG When compared with ECG of 14-NOV-2020 17:41, No significant change was found Referred By: Generic ED Physician Electronically Signed By:ARNOL HUGHES
--- NOTE | 2023-05-16 21:53 | ED_ITS ---
HPI - SOB/Dyspnea General Chief Complaint: Dyspnea Stated Complaint: SOB x2days, copd flare up Time Seen by Provider: 05/16/23 21:47 Source: patient and EMS Mode of arrival: EMS Limitations: other (Shortness of breath) History of Present Illness HPI Narrative: Patient comes to the emergency room from home via ambulance. Patient has no history of COPD. Patient states that for 2 days he has been using his inhalers without any relief. Today, patient was very short of breath, EMS reports that his oxygen saturation was in the high 80s, tachypneic in the 30s, diaphoretic. Patient states he has no chest pain. Patient states he is feels very tight. EMS gave the patient a DuoNeb and 125 mg of Solu-Medrol on the way to the hospital. Related Data Home Medications Medication Instructions Recorded Confirmed albuterol sulfate 90 mcg/actuation 2 puff inhalation Q4H PRN wheezing 11/14/20 11/14/20 aerosol inhaler (ProAir HFA) budesonide-formoterol HFA 160 2 puff PO BID 11/14/20 11/14/20 mcg-4.5 mcg/actuation aerosol inhaler (Symbicort) ipratropium 20 mcg-albuterol 100 1 puff PO QID 11/14/20 11/14/20 mcg/actuation mist for inhalation (Combivent Respimat) metoprolol tartrate 25 mg tablet 12.5 mg PO BID 11/14/20 11/14/20 paroxetine HCl 30 mg tablet 30 mg PO DAILY 11/14/20 11/14/20 Previous Rx's Medication Instructions Recorded cefuroxime axetil 500 mg tablet 500 mg PO BID #10 tabs 11/15/20 dextromethorphan-guaifenesin 10 10 ml PO Q6H #240 mL 11/15/20 mg-100 mg/5 mL oral syrup Allergies Allergy/AdvReac Type Severity Reaction Status Date / Time No Known Allergies Allergy Unverified 06/05/20 19:34 [No Known Allergies*] Review of Systems Review of Systems: Constitutional : No Weight loss, No Fever, No Chills, No Night Sweats, No Fatigue, No Malaise ENT/Mouth : No Hearing loss, No Ear Pain, No Nasal Congestion, No Sinus Pain, No Hoarseness, No sore throat, No Rhinorrhea, No Swallowing Difficulty Eyes: No Eye Pain, No Swelling, No Redness, No Foreign Body, No Discharge, No Vision Changes Cardiovascular : Complaining of chest tightness No Chest Pain, No SOB, complaining of Dyspnea on Exertion, No Orthopnea, No Edema, No Palpitations Respiratory : Complaining of cough, sputum production, wheezing, shortness of breath Gastrointestinal : No Nausea, No Vomiting, No Diarrhea, No Constipation, No abdominal Pain, No Hematochezia, No Melena Genitourinary : no irregular bleeding, No Dysuria, No Urinary Frequency, No Hematuria, No Urinary Incontinence, No Urgency, No Flank Pain, No Urinary Flow Changes, No Hesitancy Musculoskeletal : No joint pain, No Myalgias, No Joint Swelling Skin : No Skin Lesions, No rash Neuro : No Weakness, No Numbness, No Paresthesias, No Loss of Consciousness, No Dizziness, No Headache Psych : No Anxiety/Panic, No Depression, No SI/HI/AH/VH, No Social Issues, Heme/Lymph: No Bruising, No Bleeding,No Lymphadenopathy Endocrine : No Polyuria, No Polydipsia, No Temperature Intolerance [facility] Past Medical History Medical History COPD (chronic obstructive pulmonary disease) Surgical History History 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 Social History Social History Household Members: Family Housing: House Do you presently have visiting nurse or other home services: No service: No Current occupational status: unemployed Physical Exam Vital Signs: Vital Signs: Last Vital Signs Temp 98.2 F 05/16/23 23:35 Pulse 108 H 05/16/23 23:35 Resp 20 05/16/23 23:35 BP 128/83 05/16/23 23:35 Pulse Ox 99 05/16/23 23:35 O2 Del Method Nasal Cannula 05/16/23 23:35 O2 Flow Rate 2 05/16/23 23:35 BMI result Body Mass Index 17.9 Const: Other: Appearance: Alert. Oriented X3. Ill appearing Eyes: Pupils equal, round and reactive to light. ENT: Pharynx normal. Neck: Normal inspection. Neck supple. No lymph nodes noted. No crepitus CVS: Normal heart rate and rhythm. Pulses normal. Normal S1 and S2 Respiratory: Markedly decreased breath sounds bilaterally, minimal wheezing, poor air movement Abdomen: Soft and nontender. No rigidity. No distention. Skin: Skin warm and dry. Normal skin color. Normal skin turgor. Extremities: No lower extremity edema. No Lacerations. No Rash Neuro: Oriented X 3. No motor deficit. No sensory deficit. Moving all extremities. No slurred speech. CN 2 through 12 grossly intact Psych: calm, cooperative, normal affect Course Course Course Narrative: -patient's oxygen saturation is 99% on a non-rebreather. On room air, oxygen saturation 88%. Patient is tachypneic, respiratory rate between 30-40. -patient was started on BiPAP and given hour long nebulization treatment. -patient has no history of CHF, patient was given IV fluids, IV ceftriaxone and azithromycin. -all of patient's labs and imaging pending -anticipating admission to hospital Medications Administered Discontinued Medications Generic Name Dose Route Start Last Admin Trade Name Freq PRN Reason Stop Dose Admin Albuterol Sulfate 10 mg 05/16/23 21:47 05/16/23 21:55 Albuterol Sulfate (0.083%) 2.5 Mg/3 Ml Vial.Neb INHALE 05/16/23 21:48 10 mg ONCE ONE Administration Magnesium Sulfate 2 gm in 50 mls @ 25 mls/hr 05/16/23 21:47 05/16/23 22:23 Magnesium Sulfate/H2o IV 05/16/23 23:46 25 mls/hr ONCE ONE Administration Ceftriaxone Sodium 1 gm/ 50 mls @ 100 mls/hr 05/16/23 21:47 05/16/23 22:17 Sodium Chloride IV 05/16/23 22:16 100 mls/hr ONCE ONE Administration Azithromycin 500 mg/ Sodium 250 mls @ 125 mls/hr 05/16/23 21:47 05/16/23 22:17 Chloride IV 05/16/23 23:46 125 mls/hr ONCE ONE Administration Sodium Chloride 1,700 mls @ 999 mls/hr 05/16/23 21:49 05/16/23 22:36 Ns IVCONT 05/16/23 23:31 999 mls/hr .[id number] ONE Administration Medical Decision Making Medical Decision Making [facility] Narrative: -patient was significantly tachypneic, using accessory muscles. Patient was started on BiPAP. -as mentioned above, patient was given IV antibiotics, fluids. -patient was weaned off BiPAP, now on 2 L nasal cannula, overall patient feeling better. -my interpretation of chest x-ray: No pneumonia My interpretation of EKG: Normal sinus rhythm, heart rate 125, no ST segment depression or elevation, no T-wave inversion, QTC 430 Differential Diagnosis Differential Diagnoses: The differential diagnosis associated with the presentation includes (Asthma, COPD, pneumonia) Admission/Observation Consideration of admission/observation: Escalation of care including admission/observation considered Consult Healthcare Provider Management of the patient was discussed with: Hospitalist (Dr. Clifton) Lab Data [facility] Lab Attestation statement: I reviewed the patient's lab results. 05/16/23 21:53 05/16/23 22:00 Labs: Lab Results 05/16/23 05/16/23 05/16/23 Range/Units 21:53 21:59 21:59 WBC 7.4 (4.8-10.8) X10*3/uL RBC 4.27 L (4.60-5.80) X10*6/uL Hgb 14.3 (14.0-18.0) g/dl Hct 40.0 L (42.0-52.0) % MCV 93.7 (80.0-98.0) fL MCH 33.5 H (27.0-33.0) pg MCHC 35.8 (31.0-36.0) g/dl RDW 12.1 (11.0-16.0) % Plt Count 302 (160-400) X10*3/uL MPV 8.3 L (9.4-12.4) fL Immature Gran % (Auto) 0.3 (0.0-0.4) % Neut % (Auto) 56.2 (45-73) % Lymph % (Auto) 32.2 (20-40) % [place] % (Auto) 8.6 (2-11) % Eos % (Auto) 2.3 (0-4) % Baso % (Auto) 0.4 (0-2) % Lymph # (Auto) 2.4 (1.2-4.9) X10*3/uL [place] # (Auto) 0.6 (0.1-1.2) X10*3/uL Eos # (Auto) 0.2 (0.0-0.4) X10*3/uL Baso # (Auto) 0.0 (0.0-0.2) X10*3/uL Abs Immat Gran (auto) 0.02 (0.00-0.03) X10*3/uL Absolute Neuts (auto) 4.1 (2.0-8.3) x10*3/uL Absolute Nucleated RBC 0.000 (0.0-0.012) X10*3/uL Nucleated RBC % (auto) 0.0 (0.0-0.2) /100WBC PT (11.1-13.3) SEC INR (0.9-1.1) VBG pH (7.32-7.43) VBG pCO2 mmHg VBG pO2 mmHg VBG HCO3 (22-26) mmol/L VBG O2 Saturation % VBG Base Excess mmol/L Sodium (135-145) mmol/L Potassium (3.3-5.1) mmol/L Chloride (96-108) mmol/L Carbon Dioxide (22-29) mmol/L Anion Gap (12-20) BUN (9-16) mg/dL Creatinine (0.5-1.4) mg/dL Estim Creat Clear Calc Estimated GFR Random Glucose (60-115) mg/dL Lactic Acid (0.5-2.0) mmol/L Calcium (8.4-10.2) mg/dL Total Bilirubin (0.0-1.0) mg/dL Direct Bilirubin (0.0-0.5) mg/dL AST (5-37) U/L ALT (0-40) U/L Alkaline Phosphatase (39-117) U/L Troponin I High Sens < 2.7 (<3.5-35.0) ng/L B-Natriuretic Peptide (<100) pg/mL Total Protein (6.5-8.0) g/dL Albumin (3.5-5.0) g/dL COVID-19 (STEPHANIE) Negative (Negative) COVID-19 Clin Com See Note 05/16/23 05/16/23 05/16/23 Range/Units 22:00 22:00 22:00 WBC (4.8-10.8) X10*3/uL RBC (4.60-5.80) X10*6/uL Hgb (14.0-18.0) g/dl Hct (42.0-52.0) % MCV (80.0-98.0) fL MCH (27.0-33.0) pg MCHC (31.0-36.0) g/dl RDW (11.0-16.0) % Plt Count (160-400) X10*3/uL MPV (9.4-12.4) fL Immature Gran % (Auto) (0.0-0.4) % Neut % (Auto) (45-73) % Lymph % (Auto) (20-40) % [place] % (Auto) (2-11) % Eos % (Auto) (0-4) % Baso % (Auto) (0-2) % Lymph # (Auto) (1.2-4.9) X10*3/uL [place] # (Auto) (0.1-1.2) X10*3/uL Eos # (Auto) (0.0-0.4) X10*3/uL Baso # (Auto) (0.0-0.2) X10*3/uL Abs Immat Gran (auto) (0.00-0.03) X10*3/uL Absolute Neuts (auto) (2.0-8.3) x10*3/uL Absolute Nucleated RBC (0.0-0.012) X10*3/uL Nucleated RBC % (auto) (0.0-0.2) /100WBC PT 11.4 (11.1-13.3) SEC INR 0.9 (0.9-1.1) VBG pH (7.32-7.43) VBG pCO2 mmHg VBG pO2 mmHg VBG HCO3 (22-26) mmol/L VBG O2 Saturation % VBG Base Excess mmol/L Sodium 133 L (135-145) mmol/L Potassium 4.4 (3.3-5.1) mmol/L Chloride 97 (96-108) mmol/L Carbon Dioxide 27 (22-29) mmol/L Anion Gap 13 (12-20) BUN 8 L (9-16) mg/dL Creatinine 0.66 (0.5-1.4) mg/dL Estim Creat Clear Calc 95.4 Estimated GFR > 60 Random Glucose 96 (60-115) mg/dL Lactic Acid (0.5-2.0) mmol/L Calcium 9.1 (8.4-10.2) mg/dL Total Bilirubin 0.4 (0.0-1.0) mg/dL Direct Bilirubin 0.1 (0.0-0.5) mg/dL AST 74 H (5-37) U/L ALT 61 H (0-40) U/L Alkaline Phosphatase 55 (39-117) U/L Troponin I High Sens (<3.5-35.0) ng/L B-Natriuretic Peptide 92 (<100) pg/mL Total Protein 7.4 (6.5-8.0) g/dL Albumin 4.5 (3.5-5.0) g/dL COVID-19 (STEPHANIE) (Negative) COVID-19 Clin Com 05/16/23 05/16/23 Range/Units 22:04 22:11 WBC (4.8-10.8) X10*3/uL RBC (4.60-5.80) X10*6/uL Hgb (14.0-18.0) g/dl Hct (42.0-52.0) % MCV (80.0-98.0) fL MCH (27.0-33.0) pg MCHC (31.0-36.0) g/dl RDW (11.0-16.0) % Plt Count (160-400) X10*3/uL MPV (9.4-12.4) fL Immature Gran % (Auto) (0.0-0.4) % Neut % (Auto) (45-73) % Lymph % (Auto) (20-40) % [place] % (Auto) (2-11) % Eos % (Auto) (0-4) % Baso % (Auto) (0-2) % Lymph # (Auto) (1.2-4.9) X10*3/uL [place] # (Auto) (0.1-1.2) X10*3/uL Eos # (Auto) (0.0-0.4) X10*3/uL Baso # (Auto) (0.0-0.2) X10*3/uL Abs Immat Gran (auto) (0.00-0.03) X10*3/uL Absolute Neuts (auto) (2.0-8.3) x10*3/uL Absolute Nucleated RBC (0.0-0.012) X10*3/uL Nucleated RBC % (auto) (0.0-0.2) /100WBC PT (11.1-13.3) SEC INR (0.9-1.1) VBG pH 7.35 (7.32-7.43) VBG pCO2 46 mmHg VBG pO2 112 mmHg VBG HCO3 26 (22-26) mmol/L VBG O2 Saturation 98.0 % VBG Base Excess 0.5 mmol/L Sodium (135-145) mmol/L Potassium (3.3-5.1) mmol/L Chloride (96-108) mmol/L Carbon Dioxide (22-29) mmol/L Anion Gap (12-20) BUN (9-16) mg/dL Creatinine (0.5-1.4) mg/dL Estim Creat Clear Calc Estimated GFR Random Glucose (60-115) mg/dL Lactic Acid 1.0 (0.5-2.0) mmol/L Calcium (8.4-10.2) mg/dL Total Bilirubin (0.0-1.0) mg/dL Direct Bilirubin (0.0-0.5) mg/dL AST (5-37) U/L ALT (0-40) U/L Alkaline Phosphatase (39-117) U/L Troponin I High Sens (<3.5-35.0) ng/L B-Natriuretic Peptide (<100) pg/mL Total Protein (6.5-8.0) g/dL Albumin (3.5-5.0) g/dL COVID-19 (STEPHANIE) (Negative) COVID-19 Clin Com Independent Interpretation I performed an independent interpretation of an: Plain X-Ray Radiology Impression Discussion of test interpretation with radiology: I have reviewed the radiologist's reading. Radiologist Impression: Lungs and Joseline: Lungs are hyperinflated. Flattening of the hemidiaphragm and increased AP diameter suggest underlying air trapping disease.? There is mild diffuse increased interstitial lung marking. Pleura: Normal. Costophrenic angles are sharp. No pneumothorax. Heart: The heart is normal in size. Mediastinum: The mediastinum is within normal limits.. Bones: Skeletal structures included are normal for patient's age. XR/XR chest 1V IMPRESSION: Hyperinflated lungs suggesting air trapping disease such as COPD. No focal consolidation. External Record Review External record reviewed: Inpatient record (Previously admitted for COPD exacerbation) Chronic Conditions Patient?s care impacted by: Other (COPD) Critical Care Time Critical Care Time Critical Care Time: Yes Total Critical Care Time: 75 Attestation: I have personally provided critical care time. Time includes review of lab data, radiology results, discussion with consultants, and monitoring for potential decompensation. Intervention performed as documented. Discharge Plan Discharge Clinical Impression: COPD exacerbation Patient Disposition: Admitted As Inpatient Prescriptions: No Action paroxetine HCl 30 mg tablet 30 mg PO DAILY albuterol sulfate [ProAir HFA] 90 mcg/actuation HFA aerosol inhaler 2 puff inhalation Q4H PRN (Reason: wheezing) budesonide-formoterol [Symbicort] 160-4.5 mcg/actuation HFA aerosol inhaler 2 puff PO BID Combivent Respimat 20-100 mcg/actuation mist 1 puff PO QID metoprolol tartrate 25 mg Tablet 12.5 mg PO BID cefuroxime axetil 500 mg tablet 500 mg PO BID Qty: 10 0RF dextromethorphan-guaifenesin 10-100 mg/5 mL Syrup 10 ml PO Q6H Qty: 240 0RF
[2023-05-16] MEDS: Albuterol Sulfate (0.083%) 2.5 MG/3 ML VIAL.NEB 10 MG INHALE (21:55)
[2023-05-16 21:59] VITALS: PULSE 123; RESP 28; O2SAT 100
[2023-05-16 22:01] VITALS: PULSE 120; RESP 26; O2SAT 98
[2023-05-16 22:07] LABS: VBG Base Excess 0.5 mmol/L; VBG HCO3 26 mmol/L (22-26); VBG pCO2 46 mmHg; VBG pH 7.35 (7.32-7.43); VBG pO2 112 mmHg
[2023-05-16 22:07] LABS: Venous Blood Gas Refer to POC result
[2023-05-16 22:14] LABS: INTERNATIONAL NORM RATIO 0.9 (0.9-1.1); Prothrombin Time 11.4 SEC (11.1-13.3)
[2023-05-16 22:17] LABS: MANUAL DIFF FLAG NO
[2023-05-16] MEDS: Azithromycin 500 MG in 0.9 % Sodium Chloride 250 ML 125 MG IV (22:17)
[2023-05-16] MEDS: cefTRIAXone sodium 1 GM in 0.9 % Sodium Chloride 50 ML IV (22:17)
[2023-05-16 22:19] LABS: Basophils Percent Auto 0.4 % (0-2); Eosinophils Absolute Auto 0.2 X10*3/uL (0.0-0.4); Eosinophils Percent Auto 2.3 % (0-4); Hemoglobin 14.3 g/dl (14.0-18.0); Imm Gran Abs Auto 0.02 X10*3/uL (0.00-0.03); Imm Gran Pct Auto 0.3 % (0.0-0.4); Lymphocytes Absolute Auto 2.4 X10*3/uL (1.2-4.9); Lymphocytes Percent Auto 32.2 % (20-40); Mean Corpuscular HGB Conc 35.8 g/dl (31.0-36.0); Mean Corpuscular Hemoglobin 33.5 pg (27.0-33.0); Mean Corpuscular Volume 93.7 fL (80.0-98.0); Mean Platelet Volume 8.3 fL (9.4-12.4); Monocytes Absolute Auto 0.6 X10*3/uL (0.1-1.2); Monocytes Percent Auto 8.6 % (2-11); Neutrophils Absolute Auto 4.1 x10*3/uL (2.0-8.3); Neutrophils Percent Auto 56.2 % (45-73); Platelet Count 302 X10*3/uL (160-400); Red Blood Count 4.27 X10*6/uL (4.60-5.80); Red Cell Distribution Width 12.1 % (11.0-16.0); White Blood Count 7.4 X10*3/uL (4.8-10.8)
[2023-05-16 22:21] LABS: Alanine Aminotransferase 61 U/L (0-40); Albumin Level 4.5 g/dL (3.5-5.0); Alkaline Phosphatase 55 U/L (39-117); Anion Gap 13 (12-20); Aspartate Amino Transferase 74 U/L (5-37); Bilirubin Direct 0.1 mg/dL (0.0-0.5); Bilirubin Total 0.4 mg/dL (0.0-1.0); Blood Urea Nitrogen 8 mg/dL (9-16); Calcium 9.1 mg/dL (8.4-10.2); Carbon Dioxide 27 mmol/L (22-29); Chloride 97 mmol/L (96-108); Creatinine Clr Calc Pharmacy 95.4; Estimated Glomerular Filt Rate > 60; Glucose Random 96 mg/dL (60-115); Potassium 4.4 mmol/L (3.3-5.1); Sodium 133 mmol/L (135-145); Total Protein 7.4 g/dL (6.5-8.0)
[2023-05-16] MEDS: Magnesium Sulfate/H2O 2 GM/50 ML PIGGYBACK IV (22:23)
[2023-05-16 22:27] LABS: COVID-19 Test Negative (Negative); IDNOW Serial# 6674DD1D
[2023-05-16 22:27] LABS: B Type Natriuretic Peptide 92 pg/mL (<100)
[2023-05-16 22:30] LABS: Troponin-I High Sensitivity < 2.7 ng/L (<3.5-35.0)
[2023-05-16] MEDS: 0.9 % Sodium Chloride 1,700 ML 999 ML IVCONT (22:36)
[2023-05-16 23:35] VITALS: BP 128/83; PULSE 108; RESP 20; TEMP 36.8; O2SAT 99
[2023-05-17] VITALS (11 sets, daily range): BP systolic 92–135; BP diastolic 59–95; PULSE 67–95; RESP 16–23; TEMP 36.1–36.8; O2SAT 95–100
--- NOTE | 2023-05-17 00:01 | PM.IMHP ---
History of Present Illness Date of Service: 05/17/23 Chief Complaint: Dyspnea This is a 62-year-old male with pertinent history essential hypertension, mood disorder, tobacco use disorder, COPD not on home oxygen who presents to the emergency department for evaluation of dyspnea. Patient states he started having dyspnea 2 days prior to presentation. It has been progressive and worse with ambulation. Patient also has associated wheezing and nonproductive cough. States he ran out of his home inhalers last week. Admits to smoking tobacco on and off. He denies fever, chills, chest discomfort, palpitations, abdominal pain, changes in urinary or bowel habits. In the emergency department, patient requiring supplemental oxygen and continues to wheeze despite DuoNeb treatments. Review of Systems Constitutional: Constitutional: Reports fatigue Cardiovascular: Cardiovascular: Reports dyspnea on exertion Respiratory: Respiratory: Reports cough, Reports dyspnea on exertion and Reports wheezing Gastrointestinal: Gastrointestinal: Reports no additional gastrointestinal complaints Genitourinary: Genitourinary: Reports no additional male genitourinary complaints Endocrine: Endocrine: Reports fatigue Allergic/Immunologic: Allergic/Immunologic: Reports wheezing [facility] Medical History COPD (chronic obstructive pulmonary disease) Essential hypertension Mood disorder Tobacco use disorder Pertinent family history: No family history of early CAD Surgical History History 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 Social History Household Members: Family Housing: House Do you presently have visiting nurse or other home services: No Advance Directives: No Advance Directives Information Provided: Yes service: No Current occupational status: unemployed Meds Allergies Allergy/AdvReac Type Severity Reaction Status Date / Time No Known Allergies Allergy Unverified 06/05/20 19:34 [No Known Allergies*] Home Medications Medication Instructions Recorded Confirmed Last Taken Type albuterol sulfate 90 mcg/actuation 2 puff inhalation Q4H PRN wheezing 11/14/20 11/14/20 Unknown History aerosol inhaler (ProAir HFA) budesonide-formoterol HFA 160 2 puff PO BID 11/14/20 11/14/20 Unknown History mcg-4.5 mcg/actuation aerosol inhaler (Symbicort) ipratropium 20 mcg-albuterol 100 1 puff PO QID 11/14/20 11/14/20 Unknown History mcg/actuation mist for inhalation (Combivent Respimat) metoprolol tartrate 25 mg tablet 12.5 mg PO BID 11/14/20 11/14/20 Unknown History paroxetine HCl 30 mg tablet 30 mg PO DAILY 11/14/20 11/14/20 Unknown History Physical Exam Vital Signs and Narrative: Vital Signs: Last Vital Signs Temp 98.2 F 05/16/23 23:35 Pulse 108 H 05/16/23 23:35 Resp 20 05/16/23 23:35 BP 128/83 05/16/23 23:35 Pulse Ox 99 05/16/23 23:35 O2 Del Method Nasal Cannula 05/16/23 23:35 O2 Flow Rate 2 05/16/23 23:35 BMI result Body Mass Index 17.9 Middle-aged male lying in bed in mild distress on supplemental oxygen Neck supple, no JVD Tachycardia with regular rhythm, S1-S2 heard Bilateral wheezing without crackles Abdomen soft nontender, no guarding, no rigidity Patient is awake, alert and oriented to self, place, time and person ; no focal motor deficit Psych: Normal mood No pedal edema Results Labs 05/16/23 21:53 05/16/23 22:00 Labs: Laboratory Results - last 24 hr 05/16/23 05/16/23 05/16/23 21:53 21:59 22:00 MCV 93.7 MCH 33.5 H MCHC 35.8 RDW 12.1 Plt Count 302 MPV 8.3 L Immature Gran % (Auto) 0.3 Neut % (Auto) 56.2 Lymph % (Auto) 32.2 [place] % (Auto) 8.6 Eos % (Auto) 2.3 Baso % (Auto) 0.4 Lymph # (Auto) 2.4 [place] # (Auto) 0.6 Eos # (Auto) 0.2 Baso # (Auto) 0.0 Abs Immat Gran (auto) 0.02 Absolute Neuts (auto) 4.1 Absolute Nucleated RBC 0.000 Nucleated RBC % (auto) 0.0 PT 11.4 INR 0.9 VBG pH VBG pCO2 VBG pO2 VBG HCO3 VBG O2 Saturation VBG Base Excess Anion Gap Estim Creat Clear Calc Estimated GFR Random Glucose Lactic Acid Calcium Total Bilirubin Direct Bilirubin AST ALT Alkaline Phosphatase B-Natriuretic Peptide Total Protein Albumin COVID-19 (STEPHANIE) Negative COVID-19 [employer] See Note 05/16/23 05/16/23 05/16/23 22:00 22:00 22:04 MCV MCH MCHC RDW Plt Count MPV Immature Gran % (Auto) Neut % (Auto) Lymph % (Auto) [place] % (Auto) Eos % (Auto) Baso % (Auto) Lymph # (Auto) [place] # (Auto) Eos # (Auto) Baso # (Auto) Abs Immat Gran (auto) Absolute Neuts (auto) Absolute Nucleated RBC Nucleated RBC % (auto) PT INR VBG pH 7.35 VBG pCO2 46 VBG pO2 112 VBG HCO3 26 VBG O2 Saturation 98.0 VBG Base Excess 0.5 Anion Gap 13 Estim Creat Clear Calc 95.4 Estimated GFR > 60 Random Glucose 96 Lactic Acid Calcium 9.1 Total Bilirubin 0.4 Direct Bilirubin 0.1 AST 74 H ALT 61 H Alkaline Phosphatase 55 B-Natriuretic Peptide 92 Total Protein 7.4 Albumin 4.5 COVID-19 (STEPHANIE) COVID-CanDiag 05/16/23 22:11 MCV MCH MCHC RDW Plt Count MPV Immature Gran % (Auto) Neut % (Auto) Lymph % (Auto) [place] % (Auto) Eos % (Auto) Baso % (Auto) Lymph # (Auto) [place] # (Auto) Eos # (Auto) Baso # (Auto) Abs Immat Gran (auto) Absolute Neuts (auto) Absolute Nucleated RBC Nucleated RBC % (auto) PT INR VBG pH VBG pCO2 VBG pO2 VBG HCO3 VBG O2 Saturation VBG Base Excess Anion Gap Estim Creat Clear Calc Estimated GFR Random Glucose Lactic Acid 1.0 Calcium Total Bilirubin Direct Bilirubin AST ALT Alkaline Phosphatase B-Natriuretic Peptide Total Protein Albumin COVID-19 (STEPHANIE) COVID-19 [employer] [facility] Radiologist's Impressions: Impressions Chest X-Ray 05/16/23 22:12 IMPRESSION: Hyperinflated lungs suggesting air trapping disease such as COPD. No focal consolidation. Assessment and Plan (1) COPD exacerbation: Status: Acute Plan This is a 62-year-old male with pertinent history essential hypertension, mood disorder, tobacco use disorder, COPD not on home oxygen who presents to the emergency department for evaluation of dyspnea. #. Acute hypoxemic respiratory failure due to acute exacerbation of COPD. Will admit patient with supplemental oxygen. Scheduled and p.r.n. DuoNebs. Initiating systemic steroids. Also initiating azithromycin for pleiotropic effect. Continue home inhalers #. Mood disorder. Continue paroxetine #. Essential hypertension. Continue home antihypertensives #. Tobacco use disorder. Counseled regarding cessation. Refused nicotine patch Med rec pending DVT prophylaxis: Lovenox Full code Admit as inpatient and will require two night minimum hospital stay for supplemental oxygen Time Spent With Patient Time: Total time managing care of this patient today ____ minutes. Quality Stroke Does the patient have a stroke diagnosis?: No VTE Prior VTE?: No VTE Risk Level:: Medical - moderate - high VTE Device Contraindication: Treatment Not Indicated VTE Drug Contraindication: N/A - Med Ordered
[2023-05-17 00:45] LABS: Amphetamine Screen Urine Not Detected (Not Detect); Barbiturates, Urine Not Detected (Not Detect); Benzodiazepines Screen Urine Not Detected (Not Detect); Cannabinoid Screen Urine Not Detected (Not Detect); Cocaine Screen Urine Not Detected (Not Detect); Fentanyl, urine Not Detected (Not Detect); Opiate Screen Urine Not Detected (Not Detect); Phencyclidine Screen Urine Not Detected (Not Detect)
[2023-05-17] MEDS: methylPREDNISolone Sod Succ 40 MG/ML VIAL IVPUSH ×2 (01:26→11:22)
[2023-05-17 05:01] LABS: MANUAL DIFF FLAG NO
[2023-05-17 05:03] LABS: Basophils Percent Auto 0.1 % (0-2); Hematocrit 36.5 % (42.0-52.0); Hemoglobin 12.8 g/dl (14.0-18.0); Imm Gran Abs Auto 0.02 X10*3/uL (0.00-0.03); Imm Gran Pct Auto 0.3 % (0.0-0.4); Lymphocytes Absolute Auto 0.2 X10*3/uL (1.2-4.9); Lymphocytes Percent Auto 3.4 % (20-40); Mean Corpuscular HGB Conc 35.1 g/dl (31.0-36.0); Mean Corpuscular Hemoglobin 33.5 pg (27.0-33.0); Mean Corpuscular Volume 95.5 fL (80.0-98.0); Mean Platelet Volume 8.4 fL (9.4-12.4); Monocytes Absolute Auto 0.1 X10*3/uL (0.1-1.2); Neutrophils Absolute Auto 6.5 x10*3/uL (2.0-8.3); Neutrophils Percent Auto 95.2 % (45-73); Platelet Count 282 X10*3/uL (160-400); Red Blood Count 3.82 X10*6/uL (4.60-5.80); SCAN SMEAR FLAG 1; White Blood Count 6.8 X10*3/uL (4.8-10.8)
[2023-05-17 05:17] LABS: Anion Gap 10 (12-20); Blood Urea Nitrogen 9 mg/dL (9-16); Calcium 8.3 mg/dL (8.4-10.2); Carbon Dioxide 22 mmol/L (22-29); Chloride 105 mmol/L (96-108); Creatinine Clr Calc Pharmacy 98.4; Estimated Glomerular Filt Rate > 60; Glucose Random 134 mg/dL (60-115); Potassium 4.4 mmol/L (3.3-5.1); Sodium 133 mmol/L (135-145)
--- NOTE | 2023-05-17 06:39 | PHA.MEDREC ---
Pharmacy Consult ? Medication Reconciliation Pharmacy has completed the medication reconciliation. CHECKED MED REC DONE OVERNIGHT
--- NOTE | 2023-05-17 07:51 | PC.NURSE ---
patient resting in bed, states he feels he is working harder to breath, 98% on 6l utilized prn breathing treatment, RT at bedside.
[2023-05-17] MEDS: Albuterol/Iprat 2.5/0.5MG 3 ML AMPUL.NEB INHALE ×4 (07:53→19:41)
[2023-05-17] MEDS: 0.9 % Sodium Chloride Flush 3 ML SYRINGE IVFLUSH ×3 (07:57→21:01)
[2023-05-17] MEDS: Metoprolol Tartrate 25 MG TABLET PO (09:11)
[2023-05-17] MEDS: Enoxaparin Sodium 40 MG/0.4 ML SYRINGE SUBCUT (09:11)
[2023-05-17] MEDS: lisinopriL 10 MG TABLET PO (09:11)
[2023-05-17] MEDS: Fluticasone/Vilanterol 200/25 BLST.W.DEV 1 PUFF INHALE (11:24)
--- NOTE | 2023-05-17 12:08 | MHC.CM.PN ---
Addendum entered by Devi Serrano 05/17/23 14:11: PCP verified as Shayne Hess. PCP's office does not have a HCP on file. Original Note: Met with patient in regards to discharge planning. Patient lives with friends he has lived with for 17 years. Patient uses a right foot brace due to having toe amps. Patient had no services prior to coming to the hospital. No services anticipated to be needed because patient is not homebound at baseline. Patient is the only person in his home that drives. Anticipate patient will need assistance arranging transport home when medically stable. Patient has not received any Covid vaccines. Patient has a HCP and will try to obtain a copy. Arline Velazquez is patient's HCP. PCP is at [facility]. T/W is trying to verify which PCP is patient's provider. Continue to monitor for d/c needs.
--- NOTE | 2023-05-17 12:30 | P.PNIM_ITS ---
Subjective Subjective Date of Service: 05/17/23 Interval History: Seen and evaluated this morning Reports feeling more comfortable now No fever or chills Decrease O2 requrirment Review of Systems Review of Systems: Yes all other systems are reviewed and are negative Physical Exam Vital Signs: Vital Signs: Last Vital Signs Temp 97.8 F 05/17/23 07:51 Pulse 67 05/17/23 12:22 Resp 18 05/17/23 12:22 BP 135/95 H 05/17/23 07:51 Pulse Ox 98 05/17/23 07:51 O2 Del Method Aerosol Mask 05/17/23 07:51 O2 Flow Rate 6 05/17/23 07:51 BMI result Body Mass Index 17.9 Const: Other: Constitutional : Awake, interactive, not in distress Neck : Normal inspection, Supple Cardiovascular : RRR, no JVP, no lower extremity edema Respiratory : decreased bilateral air entry, no crackles, expiratory wheezes, on O2 supplement Gastrointestinal: soft, lax, Normal bowel sounds, Non tender Skin : Warm, Dry Neurological : Alert & oriented x3, No focal deficit Objective Data Active Medications Acetaminophen (Acetaminophen 325 Mg Tablet) 650 mg PO Q6H PRN PRN Reason: Pain, Mild (Pain Scale 1-3) Acetaminophen/Butalbital/Caffeine (Butalb/Acetamin/Caff 50/325/40 Tablet) 1 tab PO Q4H PRN PRN Reason: Headache Al Hydroxide/Mg Hydroxide (Magnesium Hydrox/Alum Hydrox 30 Ml Oral.Susp) 30 ml PO Q6H PRN PRN Reason: Heartburn Albuterol/Ipratropium (Albuterol/Iprat 2.5/0.5mg 3 Ml Ampul.Neb) 3 ml INHALE RQ4H WHILE AWAKE [facility] Last Admin: 05/17/23 12:21 Dose: 3 ml Documented By: DIDIER Albuterol/Ipratropium (Albuterol/Iprat 2.5/0.5mg 3 Ml Ampul.Neb) 3 ml INHALE Q4H PRN PRN Reason: Wheezing Benzonatate (Benzonatate 100 Mg Capsule) 200 mg PO TID PRN PRN Reason: Cough Enoxaparin Sodium (Enoxaparin Sodium 40 Mg/0.4 Ml Syringe) 40 mg SUBCUT Q24H [facility] Last Admin: 05/17/23 09:11 Dose: 40 mg Documented By: EVER Fluticasone/Vilanterol (Fluticasone/Vilanterol 200/25 Blst.W.Dev) 1 puff INHALE RDAILY [facility] Last Admin: 05/17/23 11:24 Dose: 1 puff Documented By: BRAYDEN Azithromycin 500 mg/ Sodium (Chloride) 250 mls @ 125 mls/hr IV Q24H [facility] Lisinopril (Lisinopril 10 Mg Tablet) 10 mg PO DAILY [facility]; Protocol Last Admin: 05/17/23 09:11 Dose: 10 mg Documented By: EVER Melatonin (Melatonin 3 Mg Tablet) 6 mg PO BEDTIME PRN PRN Reason: Insomnia Methylprednisolone Sodium Succinate (Methylprednisolone Sod Succ 40 Mg/Ml Vial) 40 mg IVPUSH Q12H [facility] Last Admin: 05/17/23 11:22 Dose: 40 mg Documented By: BRAYDEN Metoprolol Tartrate (Metoprolol Tartrate 25 Mg Tablet) 25 mg PO DAILY [facility]; Protocol Last Admin: 05/17/23 09:11 Dose: 25 mg Documented By: EVER Ondansetron HCl (Ondansetron Hcl 4 Mg/2 Ml Vial) 4 mg IVPUSH Q8H PRN PRN Reason: Nausea and Vomiting Sodium Chloride (0.9 % Sodium Chloride Flush 3 Ml Syringe) 3 ml IVFLUSH QSHIFT [facility] Last Admin: 05/17/23 07:57 Dose: 3 ml Documented By: BRAYDEN Labs 05/17/23 04:56 05/17/23 04:56 Labs: Laboratory Results - last 24 hr 05/16/23 05/16/23 05/16/23 21:53 21:59 22:00 MCV 93.7 MCH 33.5 H MCHC 35.8 RDW 12.1 Plt Count 302 MPV 8.3 L Immature Gran % (Auto) 0.3 Neut % (Auto) 56.2 Lymph % (Auto) 32.2 [place] % (Auto) 8.6 Eos % (Auto) 2.3 Baso % (Auto) 0.4 Lymph # (Auto) 2.4 [place] # (Auto) 0.6 Eos # (Auto) 0.2 Baso # (Auto) 0.0 Abs Immat Gran (auto) 0.02 Absolute Neuts (auto) 4.1 Absolute Nucleated RBC 0.000 Nucleated RBC % (auto) 0.0 PT 11.4 INR 0.9 VBG pH VBG pCO2 VBG pO2 VBG HCO3 VBG O2 Saturation VBG Base Excess Anion Gap Estim Creat Clear Calc Estimated GFR Random Glucose Lactic Acid Calcium Total Bilirubin Direct Bilirubin AST ALT Alkaline Phosphatase B-Natriuretic Peptide Total Protein Albumin Urine Opiates Screen Urine Fentanyl Screen Ur Barbiturates Screen Ur Phencyclidine Scrn Ur Amphetamines Screen U Benzodiazepines Scrn Urine Cocaine Screen U Marijuana (THC) Screen COVID-19 (STEPHANIE) Negative COVID-19 Clin Com See Note 05/16/23 05/16/23 05/16/23 22:00 22:00 22:04 MCV MCH MCHC RDW Plt Count MPV Immature Gran % (Auto) Neut % (Auto) Lymph % (Auto) [place] % (Auto) Eos % (Auto) Baso % (Auto) Lymph # (Auto) [place] # (Auto) Eos # (Auto) Baso # (Auto) Abs Immat Gran (auto) Absolute Neuts (auto) Absolute Nucleated RBC Nucleated RBC % (auto) PT INR VBG pH 7.35 VBG pCO2 46 VBG pO2 112 VBG HCO3 26 VBG O2 Saturation 98.0 VBG Base Excess 0.5 Anion Gap 13 Estim Creat Clear Calc 95.4 Estimated GFR > 60 Random Glucose 96 Lactic Acid Calcium 9.1 Total Bilirubin 0.4 Direct Bilirubin 0.1 AST 74 H ALT 61 H Alkaline Phosphatase 55 B-Natriuretic Peptide 92 Total Protein 7.4 Albumin 4.5 Urine Opiates Screen Urine Fentanyl Screen Ur Barbiturates Screen Ur Phencyclidine Scrn Ur Amphetamines Screen U Benzodiazepines Scrn Urine Cocaine Screen U Marijuana (THC) Screen COVID-19 (STEPHANIE) COVID-19 Clin Com 05/16/23 05/17/23 05/17/23 22:11 00:04 04:56 MCV 95.5 MCH 33.5 H MCHC 35.1 RDW 12.0 Plt Count 282 MPV 8.4 L Immature Gran % (Auto) 0.3 Neut % (Auto) 95.2 H Lymph % (Auto) 3.4 L [place] % (Auto) 1.0 L Eos % (Auto) 0.0 Baso % (Auto) 0.1 Lymph # (Auto) 0.2 L [place] # (Auto) 0.1 Eos # (Auto) 0.0 Baso # (Auto) 0.0 Abs Immat Gran (auto) 0.02 Absolute Neuts (auto) 6.5 Absolute Nucleated RBC 0.000 Nucleated RBC % (auto) 0.0 PT INR VBG pH VBG pCO2 VBG pO2 VBG HCO3 VBG O2 Saturation VBG Base Excess Anion Gap Estim Creat Clear Calc Estimated GFR Random Glucose Lactic Acid 1.0 Calcium Total Bilirubin Direct Bilirubin AST ALT Alkaline Phosphatase B-Natriuretic Peptide Total Protein Albumin Urine Opiates Screen Not Detected Urine Fentanyl Screen Not Detected Ur Barbiturates Screen Not Detected Ur Phencyclidine Scrn Not Detected Ur Amphetamines Screen Not Detected U Benzodiazepines Scrn Not Detected Urine Cocaine Screen Not Detected U Marijuana (THC) Screen Not Detected COVID-19 (STEPHANIE) COVID-19 [employer] 05/17/23 04:56 MCV MCH MCHC RDW Plt Count MPV Immature Gran % (Auto) Neut % (Auto) Lymph % (Auto) [place] % (Auto) Eos % (Auto) Baso % (Auto) Lymph # (Auto) [place] # (Auto) Eos # (Auto) Baso # (Auto) Abs Immat Gran (auto) Absolute Neuts (auto) Absolute Nucleated RBC Nucleated RBC % (auto) PT INR VBG pH VBG pCO2 VBG pO2 VBG HCO3 VBG O2 Saturation VBG Base Excess Anion Gap 10 L Estim Creat Clear Calc 98.4 Estimated GFR > 60 Random Glucose 134 H Lactic Acid Calcium 8.3 L D Total Bilirubin Direct Bilirubin AST ALT Alkaline Phosphatase B-Natriuretic Peptide Total Protein Albumin Urine Opiates Screen Urine Fentanyl Screen Ur Barbiturates Screen Ur Phencyclidine Scrn Ur Amphetamines Screen U Benzodiazepines Scrn Urine Cocaine Screen U Marijuana (THC) Screen COVID-19 (STEPHANIE) COVID-19 Clin Com Assessment and Plan (1) Tobacco use disorder: Status: Acute (2) Community acquired pneumonia: Status: Acute (3) COPD exacerbation: Status: Acute Plan This is a 62-year-old male with pertinent history essential hypertension, mood disorder, tobacco use disorder, COPD not on home oxygen who presents to the emergency department for evaluation of dyspnea. # Acute hypoxemic respiratory failure due to acute exacerbation of COPD. wean down supplemental oxygen Scheduled and p.r.n. DuoNebs systemic steroids azithromycin Continue home inhalers # Mood disorder. Continue paroxetine # Essential hypertension. Continue home antihypertensives # Tobacco use disorder Counseled regarding cessation Refused nicotine patch DVT prophylaxis Lovenox Admit as inpatient and will require overnight hospital stay for supplemental oxygen and respiratory failure Time Spent With Patient Time: Total time managing care of this patient today ____ minutes. Quality Stroke Does the patient have a stroke diagnosis?: No VTE Prior VTE?: No VTE Risk Level:: Medical - moderate - high VTE Device Contraindication: Treatment Not Indicated VTE Drug Contraindication: N/A - Med Ordered
[2023-05-17] MEDS: Azithromycin 500 MG in 0.9 % Sodium Chloride 250 ML 125 MG IV (21:01)
[2023-05-18] MEDS: methylPREDNISolone Sod Succ 40 MG/ML VIAL IVPUSH (00:35)
[2023-05-18 03:36] VITALS: BP 107/63; PULSE 73; RESP 18; TEMP 36.5; O2SAT 94
[2023-05-18 05:55] LABS: Hematocrit 35.5 % (42.0-52.0); Hemoglobin 12.6 g/dl (14.0-18.0); Mean Corpuscular HGB Conc 35.5 g/dl (31.0-36.0); Mean Corpuscular Hemoglobin 33.4 pg (27.0-33.0); Mean Corpuscular Volume 94.2 fL (80.0-98.0); Mean Platelet Volume 8.7 fL (9.4-12.4); Platelet Count 290 X10*3/uL (160-400); Red Blood Count 3.77 X10*6/uL (4.60-5.80); Red Cell Distribution Width 12.2 % (11.0-16.0); White Blood Count 18.7 X10*3/uL (4.8-10.8)
[2023-05-18 06:12] LABS: Anion Gap 12 (12-20); Blood Urea Nitrogen 14 mg/dL (9-16); Calcium 9.1 mg/dL (8.4-10.2); Carbon Dioxide 22 mmol/L (22-29); Chloride 102 mmol/L (96-108); Estimated Glomerular Filt Rate > 60; Glucose Random 127 mg/dL (60-115); Potassium 4.6 mmol/L (3.3-5.1); Sodium 131 mmol/L (135-145)
[2023-05-18 07:02] VITALS: BP 140/85; PULSE 84; RESP 16; TEMP 36.1; O2SAT 92
[2023-05-18 07:49] VITALS: PULSE 88; RESP 18; O2SAT 91
[2023-05-18] MEDS: Fluticasone/Vilanterol 200/25 BLST.W.DEV 1 PUFF INHALE (07:49)
[2023-05-18] MEDS: Albuterol/Iprat 2.5/0.5MG 3 ML AMPUL.NEB INHALE ×2 (07:49→11:36)
[2023-05-18] MEDS: Enoxaparin Sodium 40 MG/0.4 ML SYRINGE SUBCUT (09:40)
[2023-05-18] MEDS: lisinopriL 10 MG TABLET PO (09:41)
[2023-05-18] MEDS: 0.9 % Sodium Chloride Flush 3 ML SYRINGE IVFLUSH (09:41)
[2023-05-18] MEDS: Metoprolol Tartrate 25 MG TABLET PO (09:41)
--- NOTE | 2023-05-18 09:53 | PM.DS ---
DS: Providers Provider Date of Service: 05/18/23 Date of admission: 05/17/23 00:05 Primary care physician: Unknown Physician DS: Diagnosis Discharge Diagnosis (1) Tobacco use disorder: Status: Acute (2) Community acquired pneumonia: Status: Acute (3) COPD exacerbation: Status: Acute DS: Summary Hospital Course Hospital Course: from initial hpi: 62-year-old male with pertinent history essential hypertension, mood disorder, tobacco use disorder, COPD not on home oxygen who presents to the emergency department for evaluation of dyspnea.? Patient states he started having dyspnea 2 days prior to presentation.? It has been progressive and worse with ambulation.? Patient also has associated wheezing and nonproductive cough.? States he ran out of his home inhalers last week.? Admits to smoking tobacco on and off.? He denies fever, chills, chest discomfort, palpitations, abdominal pain, changes in urinary or bowel habits. In the emergency department, patient requiring supplemental oxygen and continues to wheeze despite DuoNeb treatments. hospital course: Patient was admitted for acute hypoxic respiratory failure secondary to COPD with acute decompensation. He was treated was steroids, bronchodilators, azithromycin. His symptoms improved he was able to be weaned off oxygen will be discharged on 5 more days of prednisone. Smoking cessation is advised. For mood disorder he was continued on paroxetine. For hypertension he was continued on lisinopril, metoprolol. Patient is feeling better will be discharged home. Time Spent with Patient Time attestation: Total time managing care of this patient today ____ minutes. Discharge coordination time: Greater than 30 minutes Quality: Safe Use of Opioids Does Pt have an Active Cancer Diagnosis on the Problem List?: No Quality: Stroke Does the patient have a stroke diagnosis?: No Physical Exam Vital Signs: Vital Signs: Last Vital Signs Temp 97 F 05/18/23 07:02 Pulse 88 05/18/23 07:49 Resp 18 05/18/23 07:49 BP 140/85 H 05/18/23 07:02 Pulse Ox 92 05/18/23 07:02 O2 Del Method Room Air 05/18/23 07:02 O2 Flow Rate 6 05/17/23 07:51 BMI result Body Mass Index 17.9 General: AO X 3, no acute distress Resp: CTA bilateral, no accessory muscles used CVS: S1,S2,RRR GI: soft, non tender, non distended Neuro: motor grossly intact, alert Psych: appropriate affect, appropriate insight DS: Data Data Completed and Pending Completed studies during hospitalization [Text1]: Procedures Assistance with Respiratory Ventilation, Less than 24 Consecutive Hours, Continuous Positive Airway Pressure (11/14/20) Labs on day of discharge: Laboratory Results - last 24 hr 05/18/23 05/18/23 05:19 05:19 WBC 18.7 H RBC 3.77 L Hgb 12.6 L Hct 35.5 L MCV 94.2 MCH 33.4 H MCHC 35.5 RDW 12.2 Plt Count 290 MPV 8.7 L Absolute Nucleated RBC 0.000 Nucleated RBC % (auto) 0.0 Sodium 131 L Potassium 4.6 Chloride 102 Carbon Dioxide 22 Anion Gap 12 BUN 14 Creatinine 0.67 Estim Creat Clear Calc 94.0 Estimated GFR > 60 Random Glucose 127 H Calcium 9.1 D Preliminary micro results at discharge 05/16/23 23:33 Blood Culture - Preliminary Blood - Venous No growth after 24 hours. 05/16/23 23:11 Blood Culture - Preliminary Blood - Venous No growth after 24 hours. Discharge Plan Discharge Anticipated Discharge Date/Time: 05/18/23 09:51 Patient Disposition: Home, Self-Care Discharge Diagnosis: copd Referrals: Physician,Unknown J [Primary Care Provider] - 1 Week Discharge Medications: New prednisone 20 mg tablet 40 mg PO DAILY Qty: 10 0RF Continued lisinopril 10 mg tablet 10 mg PO DAILY albuterol sulfate [Ventolin HFA] 90 mcg/actuation HFA aerosol inhaler 2 puff inhalation Q4H PRN (Reason: Wheezing) metoprolol tartrate 25 mg tablet 25 mg PO DAILY budesonide-formoterol [Symbicort] 160-4.5 mcg/actuation HFA aerosol inhaler 2 puff INHALATION BID Combivent Respimat 20-100 mcg/actuation mist 1 puff INHALATION QID Discharge Orders: Discharge Order (Routine); Ordered 05/18/23 Ordered By: Orlin Hernandez Diet: Advance to usual diet Activity on Discharge: As tolerated Stand Alone Forms: Patient Portal Discharge page Care Plan Goals: [facility] Concerns: copd Plan of Treatment: 5 more days prednisone, stop smoking Assessment: see above
--- NOTE | 2023-05-18 10:22 | MHC.CM.PN ---
pt dcd home no skilled services ordered by
[2023-05-18 11:37] VITALS: PULSE 72; RESP 18; O2SAT 98
== END 2023-05-18 12:20 | disposition home or self-care (01) | DRG 140 ==
LOC: HO.ED 05-17 00:10 → HO.EDOVER 05-17 00:21 → HO.S3 05-17 11:51
PROVIDERS: Student in an Organized Health Care Education/Training Program; Admitting Provider Student in an Organized Health Care Education/Training Program; Emergency Provider Emergency Medicine; PCP Family Medicine; Visit Provider Internal Medicine
DX: J44.0 Chronic obstructive pulmonary disease with (acute) lower respiratory infection (principal); J96.01 Acute respiratory failure with hypoxia; J18.9 Pneumonia, unspecified organism; J44.1 Chronic obstructive pulmonary disease with (acute) exacerbation; I10 Essential (primary) hypertension; F39 Unspecified mood [affective] disorder; F17.210 Nicotine dependence, cigarettes, uncomplicated; Z20.822 Contact with and (suspected) exposure to COVID-19; Z71.6 Tobacco abuse counseling; Z79.899 Other long term (current) drug therapy
CPT/HCPCS: 36415; 71045; 80048; 80076; 80307; 82803; 83605; 83880; 84484; 85025; 85027; 85610; 87040; 87635; 93005; 94640; 99221; 99284; J0456; J0696; J1650; J2920; J3475

== ENCOUNTER → 2023-05-17 00:05 | Outpatient (BNV) | payer OTHER, SELFPAY | PROVIDERS: Admitting Provider Student in an Organized Health Care Education/Training Program; Emergency Provider Emergency Medicine; Visit Provider Student in an Organized Health Care Education/Training Program | DX: J44.1 Chronic obstructive pulmonary disease with (acute) exacerbation (principal); F17.200 Nicotine dependence, unspecified, uncomplicated; J18.9 Pneumonia, unspecified organism | CPT/HCPCS: 99222; 99239; 99499 ==

== ENCOUNTER 2024-02-10 21:23 | Inpatient (IN) | payer OTHER, SELFPAY ==
--- NOTE | 2024-02-10 | ECG_ITS ---
Test Reason : SOB Blood Pressure : / mmHG Vent. Rate : 125 BPM Atrial Rate : 125 BPM P-R Int : 112 ms QRS Dur : 080 ms QT Int : 302 ms P-R-T Axes : 067 077 081 degrees QTc Int : 435 ms Sinus tachycardia Otherwise normal ECG When compared with ECG of 16-MAY-2023 21:47, No significant change was found Referred By: Generic ED Physician Electronically Signed By:Prosper Garcia
--- NOTE | ~2024-02-10 | XR_ITS ---
EXAMINATION: XR CHEST CLINICAL INFORMATION: Dyspnea. COPD. COMPARISON: 05/16/2023 TECHNIQUE: Frontal view of the chest was obtained. FINDINGS: Cardiac and mediastinal contours are normal. Lungs are hyperexpanded. No consolidation, pneumothorax or pleural effusion. No acute pulmonary findings. Degenerative spondylosis in the thoracic spine. ACDF hardware in place. XR/XR chest 1V IMPRESSION: Hyperexpanded lungs. No acute pulmonary findings.
[2024-02-10 21:35] VITALS: BP 210/130; PULSE 121; O2SAT 97
[2024-02-10 21:38] VITALS: BP 186/119; PULSE 123; RESP 25; O2SAT 100; BMI 18.7
[2024-02-10 21:39] VITALS: PULSE 121; RESP 28; O2SAT 98
--- NOTE | 2024-02-10 21:39 | ED_ITS ---
HPI - General Adult General Chief complaint: Dyspnea Stated complaint: COPD exacerbation, 1LPM O2 Time Seen by Provider: 02/10/24 21:35 History of Present Illness HPI narrative: The patient is a 63-year-old male with a history of COPD who says that he has had worsening shortness of breath over the last 4 days. No definite fevers. He has had cough but no sputum. No abdominal pain, nausea, vomiting. The patient has a history of chronic problems with his right leg. He has had significant traumatic injuries to the right leg requiring surgeries. He has never had a DVT. Related Data Home Medications ?Medication ?Instructions ?Recorded ?Confirmed albuterol sulfate 90 mcg/actuation 2 puff inhalation Q4H PRN Wheezing 05/17/23 02/11/24 aerosol inhaler (Ventolin HFA) budesonide-formoterol HFA 160 2 puff inhalation BID 05/17/23 02/11/24 mcg-4.5 mcg/actuation aerosol inhaler (Symbicort) ipratropium 20 mcg-albuterol 100 1 puff inhalation QID 05/17/23 02/11/24 mcg/actuation mist for inhalation (Combivent Respimat) lisinopril 10 mg tablet 10 mg PO DAILY 05/17/23 02/11/24 metoprolol tartrate 25 mg tablet 12.5 mg PO DAILY 05/17/23 02/11/24 lidocaine 5 % topical patch 1 patch topical DAILY PRN Pain 02/11/24 02/11/24 paroxetine HCl 40 mg tablet 40 mg PO DAILY 02/11/24 02/11/24 Allergies Allergy/AdvReac Type Severity Reaction Status Date / Time No Known Allergies Allergy Unverified 02/10/24 21:40 [No Known Allergies*] Review of Systems 2 Review of Systems: Yes all other systems are reviewed and are negative PMFSH Past Medical History Medical History Tobacco use disorder Mood disorder Essential hypertension COPD (chronic obstructive pulmonary disease) Surgical History History 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 Social History Social History Household Members: Other Household Members Other:: friends Housing: House Do you presently have visiting nurse or other home services: No Alcohol intake: current Alcohol intake frequency: 0-2 drinks per day Alcohol type: beer Comment: pt feels relieved of chest discomfort and difficulty breathing Patient Tobacco Use Status: Current everyday Tobacco user Tobacco use type: Cigarette Cigarettes Per Day: 5 Smoked in Last 30 Days: Yes Use of substances other than those prescribed or required for medical reasons: Yes Substance Use Type: Marijuana Advance Directives: No Advance Directives Information Provided: No Do you have a plan to hurt others: No Plan service: No Current occupational status: unemployed Physical Exam ED Vital Signs: Vital Signs - 24 hr 02/10/24 21:38 02/10/24 21:39 02/10/24 22:45 Pulse Rate 123 H 121 H 121 H Respiratory Rate 25 H 28 H 28 H Blood Pressure 186/119 H Pulse Oximetry 100 Oxygen Delivery Method Nasal Cannula Oxygen Flow Rate 02/10/24 22:59 02/11/24 00:28 Pulse Rate 115 H Respiratory Rate 28 H 23 H Blood Pressure 124/81 Pulse Oximetry 96 Oxygen Delivery Method BiPAP Oxygen Flow Rate 26 BMI result Body Mass Index 18.7 Const Other: The patient is a thin 63-year-old who looks very short of breath. HENMT Other: The face is symmetrical. ?Mucous membranes moist. Eyes Other: Pupils are round equal, conjunctivae are clear, extraocular movements intact Neck Other: No JVD Resp Other: Markedly diminished air entry bilaterally Cardio Other: The patient was tachycardic. No definite murmur. GI Other: Abdomen is soft and nontender Skin Other: Skin is pale and mildly diaphoretic. Neuro Other: The patient is awake and alert. He does not seem encephalopathic. She moves his extremities symmetrically. Extrem Other: There is some slight asymmetry to the lower legs. The right leg seems as if it might be slightly edematous compared to the left. The patient says this is chronic. Medications Administered Generic Name Dose Route Start Last Admin Trade Name Freq PRN Reason Stop Dose Admin Albuterol/Ipratropium 3 ml 02/11/24 08:00 02/11/24 07:53 Albuterol/Iprat 2.5/0.5mg 3 Ml Ampul.Neb INHALE 3 ml RQ4H WHILE AWAKE DESTINEY Administration Enoxaparin Sodium 40 mg 02/11/24 02:00 02/11/24 02:37 Enoxaparin Sodium 40 Mg/0.4 Ml Syringe SUBCUT 40 mg BEDTIME DESTINEY Administration Methylprednisolone Sodium Succinate 40 mg 02/11/24 08:00 02/11/24 09:52 Methylprednisolone Sod Succ 40 Mg/Ml Vial IVPUSH 40 mg Q12H DESTINEY Administration Sodium Chloride 3 ml 02/11/24 08:00 02/11/24 09:52 0.9 % Sodium Chloride Flush 3 Ml Syringe IVFLUSH 3 ml QSHIFT DESTINEY Administration Discontinued Medications Generic Name Dose Route Start Last Admin Trade Name Freq PRN Reason Stop Dose Admin Albuterol Sulfate 7.5 mg/ 10 mg 02/10/24 21:41 02/10/24 21:42 Albuterol Sulfate 2.5 mg INHALE 02/10/24 21:42 10 mg ONCE ONE Administration Albuterol Sulfate 7.5 mg/ 0 mg 02/10/24 21:50 02/10/24 21:52 Albuterol/Ipratropium 3 ml INHALE 02/10/24 21:51 10 each ONCE ONE Administration Sodium Chloride 1,000 mls @ 999 mls/hr 02/10/24 22:15 02/10/24 23:30 Ns IV 02/10/24 23:15 Infused .Q1H1M DESTINEY Infusion Ceftriaxone Sodium 1 gm/ 50 mls @ 100 mls/hr 02/10/24 22:03 02/10/24 22:55 Sodium Chloride IV 02/10/24 22:32 Infused ONCE ONE Infusion Azithromycin 500 mg/ Sodium 250 mls @ 125 mls/hr 02/10/24 22:04 02/11/24 01:10 Chloride IV 02/11/24 00:03 Infused ONCE ONE Infusion Magnesium Sulfate 2 gm in 50 mls @ 150 mls/hr 02/10/24 22:04 02/10/24 22:45 Magnesium Sulfate/H2o IV 02/10/24 22:23 Infused ONCE ONE Infusion Methylprednisolone Sodium Succinate 60 mg 02/10/24 21:51 02/10/24 22:01 Methylprednisolone Sod Succ 125 Mg/2 Ml Vial IVPUSH 02/10/24 21:52 60 mg ONCE ONE Administration Medical Decision Making Medical Decision Making MDM Narrative: The patient was brought to the hospital very short of breath with what seems to be most likely a COPD exacerbation. The patient has markedly diminished air entry bilaterally with wheezes. He was hypertensive but there were no crackles. The patient was treated with bronchodilators, IV methylprednisolone, IV magnesium. He was also given IV ceftriaxone and azithromycin. His initial lactate was elevated and he seemed to possibly meet septic criteria but his labs are not highly suggestive of an actual acute infectious process and there was no infiltrate on his x-ray. The patient was placed for awhile on BiPAP as he seemed to possibly be fatiguing. After over an hour on BiPAP however he seemed better and he was able to tolerate nasal cannula. Repeat lactate was improved. He was admitted to the hospitalist service. Lab Data 02/11/24 06:41 02/11/24 06:41 Labs: Lab Results 02/10/24 02/10/24 02/10/24 Range/Units 21:40 21:41 21:43 WBC 6.8 (4.8-10.8) X10*3/uL RBC 4.53 L D (4.60-5.80) X10*6/uL Hgb 15.2 D (14.0-18.0) g/dl Hct 43.0 D (42.0-52.0) % MCV 94.9 (80.0-98.0) fL MCH 33.6 H (27.0-33.0) pg MCHC 35.3 (31.0-36.0) g/dl RDW 12.6 (11.0-16.0) % Plt Count 304 (160-400) X10*3/uL MPV 8.5 L (9.4-12.4) fL Immature Gran % (Auto) 0.1 (0.0-0.4) % Neut % (Auto) 57.0 (45-73) % Lymph % (Auto) 31.5 (20-40) % [place] % (Auto) 9.4 (2-11) % Eos % (Auto) 1.6 (0-4) % Baso % (Auto) 0.4 (0-2) % Lymph # (Auto) 2.2 (1.2-4.9) X10*3/uL [place] # (Auto) 0.6 (0.1-1.2) X10*3/uL Eos # (Auto) 0.1 (0.0-0.4) X10*3/uL Baso # (Auto) 0.0 (0.0-0.2) X10*3/uL Abs Immat Gran (auto) 0.01 (0.00-0.03) X10*3/uL Absolute Neuts (auto) 3.9 (2.0-8.3) x10*3/uL Absolute Nucleated RBC 0.000 (0.0-0.012) X10*3/uL Nucleated RBC % (auto) 0.0 (0.0-0.2) /100WBC PT 11.3 (11.1-13.3) SEC INR 0.9 (0.9-1.1) VBG pH (7.32-7.43) VBG pCO2 mmHg VBG pO2 mmHg VBG HCO3 (22-26) mmol/L VBG O2 Saturation % VBG Base Excess mmol/L Sodium 135 (135-145) mmol/L Potassium 4.0 (3.3-5.1) mmol/L Chloride 98 (96-108) mmol/L Carbon Dioxide 26 (22-29) mmol/L Anion Gap 15 (12-20) BUN 4 L (9-16) mg/dL Creatinine 0.74 (0.5-1.4) mg/dL Estim Creat Clear Calc 87.4 Estimated GFR > 60 Random Glucose 84 (60-115) mg/dL Lactic Acid 2.4 H* (0.5-2.0) mmol/L Lactic Acid F/U @ 2Hr (0.5-2.0) mmol/L Calcium 9.1 (8.4-10.2) mg/dL Magnesium (1.6-2.6) mg/dL Total Bilirubin (0.0-1.0) mg/dL Direct Bilirubin (0.0-0.5) mg/dL AST (5-37) U/L ALT (0-40) U/L Alkaline Phosphatase (39-117) U/L Troponin I High Sens < 2.7 (<3.5-35.0) ng/L C-Reactive Protein (< or = 0.50) mg/dL B-Natriuretic Peptide 24 (<100) pg/mL Total Protein (6.5-8.0) g/dL Albumin (3.5-5.0) g/dL Ethyl Alcohol mg/dL 02/10/24 02/10/24 02/11/24 Range/Units 21:51 21:52 00:09 WBC (4.8-10.8) X10*3/uL RBC (4.60-5.80) X10*6/uL Hgb (14.0-18.0) g/dl Hct (42.0-52.0) % MCV (80.0-98.0) fL MCH (27.0-33.0) pg MCHC (31.0-36.0) g/dl RDW (11.0-16.0) % Plt Count (160-400) X10*3/uL MPV (9.4-12.4) fL Immature Gran % (Auto) (0.0-0.4) % Neut % (Auto) (45-73) % Lymph % (Auto) (20-40) % [place] % (Auto) (2-11) % Eos % (Auto) (0-4) % Baso % (Auto) (0-2) % Lymph # (Auto) (1.2-4.9) X10*3/uL [place] # (Auto) (0.1-1.2) X10*3/uL Eos # (Auto) (0.0-0.4) X10*3/uL Baso # (Auto) (0.0-0.2) X10*3/uL Abs Immat Gran (auto) (0.00-0.03) X10*3/uL Absolute Neuts (auto) (2.0-8.3) x10*3/uL Absolute Nucleated RBC (0.0-0.012) X10*3/uL Nucleated RBC % (auto) (0.0-0.2) /100WBC PT (11.1-13.3) SEC INR (0.9-1.1) VBG pH 7.35 (7.32-7.43) VBG pCO2 42 mmHg VBG pO2 73 mmHg VBG HCO3 23 (22-26) mmol/L VBG O2 Saturation 94.0 % VBG Base Excess -1.9 mmol/L Sodium (135-145) mmol/L Potassium (3.3-5.1) mmol/L Chloride (96-108) mmol/L Carbon Dioxide (22-29) mmol/L Anion Gap (12-20) BUN (9-16) mg/dL Creatinine (0.5-1.4) mg/dL Estim Creat Clear Calc Estimated GFR Random Glucose (60-115) mg/dL Lactic Acid (0.5-2.0) mmol/L Lactic Acid F/U @ 2Hr 2.3 H* (0.5-2.0) mmol/L Calcium (8.4-10.2) mg/dL Magnesium 1.9 (1.6-2.6) mg/dL Total Bilirubin 0.4 (0.0-1.0) mg/dL Direct Bilirubin 0.2 (0.0-0.5) mg/dL AST 43 H (5-37) U/L ALT 31 (0-40) U/L Alkaline Phosphatase 44 (39-117) U/L Troponin I High Sens (<3.5-35.0) ng/L C-Reactive Protein < 0.04 (< or = 0.50) mg/dL B-Natriuretic Peptide (<100) pg/mL Total Protein 7.1 (6.5-8.0) g/dL Albumin 4.5 (3.5-5.0) g/dL Ethyl Alcohol 99 mg/dL 02/11/24 Range/Units 00:10 WBC (4.8-10.8) X10*3/uL RBC (4.60-5.80) X10*6/uL Hgb (14.0-18.0) g/dl Hct (42.0-52.0) % MCV (80.0-98.0) fL MCH (27.0-33.0) pg MCHC (31.0-36.0) g/dl RDW (11.0-16.0) % Plt Count (160-400) X10*3/uL MPV (9.4-12.4) fL Immature Gran % (Auto) (0.0-0.4) % Neut % (Auto) (45-73) % Lymph % (Auto) (20-40) % [place] % (Auto) (2-11) % Eos % (Auto) (0-4) % Baso % (Auto) (0-2) % Lymph # (Auto) (1.2-4.9) X10*3/uL [place] # (Auto) (0.1-1.2) X10*3/uL Eos # (Auto) (0.0-0.4) X10*3/uL Baso # (Auto) (0.0-0.2) X10*3/uL Abs Immat Gran (auto) (0.00-0.03) X10*3/uL Absolute Neuts (auto) (2.0-8.3) x10*3/uL Absolute Nucleated RBC (0.0-0.012) X10*3/uL Nucleated RBC % (auto) (0.0-0.2) /100WBC PT (11.1-13.3) SEC INR (0.9-1.1) VBG pH 7.32 (7.32-7.43) VBG pCO2 38 mmHg VBG pO2 59 mmHg VBG HCO3 20 L (22-26) mmol/L VBG O2 Saturation 88.0 % VBG Base Excess -5.0 mmol/L Sodium (135-145) mmol/L Potassium (3.3-5.1) mmol/L Chloride (96-108) mmol/L Carbon Dioxide (22-29) mmol/L Anion Gap (12-20) BUN (9-16) mg/dL Creatinine (0.5-1.4) mg/dL Estim Creat Clear Calc Estimated GFR Random Glucose (60-115) mg/dL Lactic Acid (0.5-2.0) mmol/L Lactic Acid F/U @ 2Hr (0.5-2.0) mmol/L Calcium (8.4-10.2) mg/dL Magnesium (1.6-2.6) mg/dL Total Bilirubin (0.0-1.0) mg/dL Direct Bilirubin (0.0-0.5) mg/dL AST (5-37) U/L ALT (0-40) U/L Alkaline Phosphatase (39-117) U/L Troponin I High Sens (<3.5-35.0) ng/L C-Reactive Protein (< or = 0.50) mg/dL B-Natriuretic Peptide (<100) pg/mL Total Protein (6.5-8.0) g/dL Albumin (3.5-5.0) g/dL Ethyl Alcohol mg/dL Critical Care Time Critical Care Time Total Critical Care Time: 35 Attestation: The patient was critically ill with a high probability of imminent or life- threatening deterioration. ?I spent greater than 30 minutes of discontinuous time evaluating the patient, delivering critical care at the bedside, discussing evaluating data with consultants. ?Critical care time does not include time spent performing separately billable procedures or teaching. ?Time spent performing critical care with 35 minutes. Discharge Plan Discharge Clinical Impression: Acute exacerbation of chronic obstructive airways disease Patient Disposition: Admitted As Inpatient
[2024-02-10] MEDS: Albuterol Sulfate 7.5 MG, Albuterol Sulfate (0.083%) 2.5 MG 10 MG INHALE (21:42)
[2024-02-10 21:48] LABS: MANUAL DIFF FLAG NO
[2024-02-10 21:49] LABS: Basophils Percent Auto 0.4 % (0-2); Eosinophils Absolute Auto 0.1 X10*3/uL (0.0-0.4); Eosinophils Percent Auto 1.6 % (0-4); Hemoglobin 15.2 g/dl (14.0-18.0); Imm Gran Abs Auto 0.01 X10*3/uL (0.00-0.03); Imm Gran Pct Auto 0.1 % (0.0-0.4); Lymphocytes Absolute Auto 2.2 X10*3/uL (1.2-4.9); Lymphocytes Percent Auto 31.5 % (20-40); Mean Corpuscular HGB Conc 35.3 g/dl (31.0-36.0); Mean Corpuscular Hemoglobin 33.6 pg (27.0-33.0); Mean Corpuscular Volume 94.9 fL (80.0-98.0); Mean Platelet Volume 8.5 fL (9.4-12.4); Monocytes Absolute Auto 0.6 X10*3/uL (0.1-1.2); Monocytes Percent Auto 9.4 % (2-11); Neutrophils Absolute Auto 3.9 x10*3/uL (2.0-8.3); Platelet Count 304 X10*3/uL (160-400); Red Blood Count 4.53 X10*6/uL (4.60-5.80); Red Cell Distribution Width 12.6 % (11.0-16.0); White Blood Count 6.8 X10*3/uL (4.8-10.8)
[2024-02-10] MEDS: Albuterol Sulfate 7.5 MG, Albuterol/Iprat 2.5/0.5MG 3 ML 3 ML INHALE (21:52)
[2024-02-10 21:55] LABS: INTERNATIONAL NORM RATIO 0.9 (0.9-1.1); Prothrombin Time 11.3 SEC (11.1-13.3)
[2024-02-10 22:01] LABS: VBG Base Excess -1.9 mmol/L; VBG HCO3 23 mmol/L (22-26); VBG pCO2 42 mmHg; VBG pH 7.35 (7.32-7.43); VBG pO2 73 mmHg
[2024-02-10] MEDS: methylPREDNISolone Sod Succ 125 MG/2 ML VIAL 60 MG IVPUSH (22:01)
[2024-02-10 22:02] LABS: Anion Gap 15 (12-20); Blood Urea Nitrogen 4 mg/dL (9-16); Calcium 9.1 mg/dL (8.4-10.2); Carbon Dioxide 26 mmol/L (22-29); Chloride 98 mmol/L (96-108); Creatinine Clr Calc Pharmacy 87.4; Estimated Glomerular Filt Rate > 60; Glucose Random 84 mg/dL (60-115); Sodium 135 mmol/L (135-145)
--- NOTE | 2024-02-10 22:02 | PC.NURSE ---
Pt medicated per nov. RT with pt. Plan of care ongoing.
[2024-02-10 22:03] LABS: Venous Blood Gas Refer to POC result
[2024-02-10 22:04] LABS: Lactic Acid 2.4 mmol/L (0.5-2.0)
[2024-02-10 22:10] LABS: B Type Natriuretic Peptide 24 pg/mL (<100)
[2024-02-10 22:13] LABS: Troponin-I High Sensitivity < 2.7 ng/L (<3.5-35.0)
[2024-02-10 22:21] LABS: Alanine Aminotransferase 31 U/L (0-40); Albumin Level 4.5 g/dL (3.5-5.0); Alkaline Phosphatase 44 U/L (39-117); Aspartate Amino Transferase 43 U/L (5-37); Bilirubin Direct 0.2 mg/dL (0.0-0.5); Bilirubin Total 0.4 mg/dL (0.0-1.0); C Reactive Protein < 0.04 mg/dL (< or = 0.50); Ethanol 99 mg/dL; Magnesium 1.9 mg/dL (1.6-2.6); Total Protein 7.1 g/dL (6.5-8.0)
[2024-02-10] MEDS: Magnesium Sulfate/H2O 2 GM/50 ML PIGGYBACK IV (22:21)
[2024-02-10] MEDS: cefTRIAXone sodium 1 GM in 0.9 % Sodium Chloride 50 ML IV (22:22)
[2024-02-10] MEDS: 0.9 % Sodium Chloride 1,000 ML 999 ML IV (22:24)
[2024-02-10 22:45] VITALS: PULSE 121; RESP 28; O2SAT 98
[2024-02-10 22:59] VITALS: PULSE 122; RESP 28; O2SAT 97
[2024-02-10] MEDS: Azithromycin 500 MG in 0.9 % Sodium Chloride 250 ML 125 MG IV (23:00)
[2024-02-10 23:46] LABS: Reflex Lactate? Lactic Acid Added
[2024-02-11] VITALS (11 sets, daily range): BP systolic 111–139; BP diastolic 73–93; PULSE 74–115; RESP 15–24; TEMP 36.6–36.8; O2SAT 94–98
[2024-02-11 00:18] LABS: VBG HCO3 20 mmol/L (22-26); VBG pCO2 38 mmHg; VBG pH 7.32 (7.32-7.43); VBG pO2 59 mmHg
[2024-02-11 00:21] LABS: Venous Blood Gas Refer to POC result
[2024-02-11 00:30] LABS: ~Lactic Acid-LAB USE ONLY 2.3 mmol/L (0.5-2.0)
--- NOTE | 2024-02-11 00:31 | PC.NURSE ---
Critical lab received @ 0029. Lactic 2.3 Tor provider notified and aware critical lactic 2.3 @ 0029 Plan of care ongoing.
--- NOTE | 2024-02-11 01:07 | PM.IMHP ---
History of Present Illness Date of Service: 02/11/24 Chief Complaint: Dyspnea This is a 63-year-old male with pertinent history of hypertension, mood disorder, tobacco use disorder, COPD not on home oxygen who presents to the emergency department for evaluation of dyspnea. Patient states he started having dyspnea 3 days prior to presentation. It has been progressive and worse with ambulation. Patient also has associated wheezing and cough with yellowish sputum production. States he ran out of his home inhalers 3 days prior to presentation. Admits to smoking tobacco on and off. He denies fever, chills, chest discomfort, palpitations, abdominal pain, changes in urinary or bowel habits. In the emergency department, patient requiring supplemental oxygen and continues to wheeze despite DuoNeb treatments. Review of Systems Constitutional: Constitutional: Reports no additional constitutional complaints Cardiovascular: Cardiovascular: Reports dyspnea on exertion Respiratory: Respiratory: Reports cough, Reports dyspnea on exertion and Reports wheezing Gastrointestinal: Gastrointestinal: Reports no additional gastrointestinal complaints Genitourinary: Genitourinary: Reports no additional male genitourinary complaints Allergic/Immunologic: Allergic/Immunologic: Reports wheezing [facility] Medical History Tobacco use disorder Mood disorder Essential hypertension COPD (chronic obstructive pulmonary disease) Pertinent family history: No family history of early CAD Surgical History History 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 Social History Household Members: Other Household Members Other:: friends Housing: House Do you presently have visiting nurse or other home services: No Alcohol intake: current Alcohol intake frequency: 0-2 drinks per day Alcohol type: beer Comment: pt feels relieved of chest discomfort and difficulty breathing Patient Tobacco Use Status: Current everyday Tobacco user Tobacco use type: Cigarette Cigarettes Per Day: 5 Smoked in Last 30 Days: Yes Use of substances other than those prescribed or required for medical reasons: Yes Substance Use Type: Marijuana Advance Directives: No Advance Directives Information Provided: No Do you have a plan to hurt others: No Plan service: No Current occupational status: unemployed Meds Allergies Allergy/AdvReac Type Severity Reaction Status Date / Time No Known Allergies Allergy Unverified 05/24/24 21:40 [No Known Allergies*] Home Medications ?Medication ?Instructions ?Recorded ?Confirmed ?Last Taken ?Type albuterol sulfate 90 mcg/actuation 2 puff inhalation Q4H PRN Wheezing 05/17/23 05/17/23 Unknown History aerosol inhaler (Ventolin HFA) budesonide-formoterol HFA 160 2 puff inhalation BID 05/17/23 05/17/23 Unknown History mcg-4.5 mcg/actuation aerosol inhaler (Symbicort) ipratropium 20 mcg-albuterol 100 1 puff inhalation QID 05/17/23 05/17/23 Unknown History mcg/actuation mist for inhalation (Combivent Respimat) lisinopril 10 mg tablet 10 mg PO DAILY 05/17/23 05/17/23 Unknown History metoprolol tartrate 25 mg tablet 25 mg PO DAILY 05/17/23 05/17/23 Unknown History Physical Exam Vital Signs and Narrative: Vital Signs: Last Vital Signs Pulse 115 H 02/11/24 00:28 Resp 23 H 02/11/24 00:28 BP 124/81 02/11/24 00:28 Pulse Ox 96 02/11/24 00:28 O2 Del Method BiPAP 02/11/24 00:28 O2 Flow Rate 26 02/11/24 00:28 Oxygen Flow Rate 6 02/10/24 21:38 BMI result Body Mass Index 18.7 Middle-aged male lying in bed in mild distress on supplemental oxygen Neck supple, no JVD Tachycardia with regular rhythm, S1-S2 heard Bilateral wheezing without crackles Abdomen soft nontender, no guarding, no rigidity Patient is awake, alert and oriented to self, place, time and person ; no focal motor deficit Psych: Normal mood No pedal edema Results Labs 02/10/24 21:43 02/10/24 21:41 Labs: Laboratory Results - last 24 hr 02/10/24 02/10/24 02/10/24 21:40 21:41 21:43 MCV 94.9 MCH 33.6 H MCHC 35.3 RDW 12.6 Plt Count 304 MPV 8.5 L Immature Gran % (Auto) 0.1 Neut % (Auto) 57.0 Lymph % (Auto) 31.5 [place] % (Auto) 9.4 Eos % (Auto) 1.6 Baso % (Auto) 0.4 Lymph # (Auto) 2.2 [place] # (Auto) 0.6 Eos # (Auto) 0.1 Baso # (Auto) 0.0 Abs Immat Gran (auto) 0.01 Absolute Neuts (auto) 3.9 Absolute Nucleated RBC 0.000 Nucleated RBC % (auto) 0.0 PT 11.3 INR 0.9 VBG pH VBG pCO2 VBG pO2 VBG HCO3 VBG O2 Saturation VBG Base Excess Anion Gap 15 Estim Creat Clear Calc 87.4 Estimated GFR > 60 Random Glucose 84 Lactic Acid 2.4 H* Lactic Acid F/U @ 2Hr Calcium 9.1 Magnesium Total Bilirubin Direct Bilirubin AST ALT Alkaline Phosphatase Troponin I High Sens < 2.7 C-Reactive Protein B-Natriuretic Peptide 24 Total Protein Albumin Ethyl Alcohol 02/10/24 02/10/24 02/11/24 21:51 21:52 00:09 MCV MCH MCHC RDW Plt Count MPV Immature Gran % (Auto) Neut % (Auto) Lymph % (Auto) [place] % (Auto) Eos % (Auto) Baso % (Auto) Lymph # (Auto) [place] # (Auto) Eos # (Auto) Baso # (Auto) Abs Immat Gran (auto) Absolute Neuts (auto) Absolute Nucleated RBC Nucleated RBC % (auto) PT INR VBG pH 7.35 VBG pCO2 42 VBG pO2 73 VBG HCO3 23 VBG O2 Saturation 94.0 VBG Base Excess -1.9 Anion Gap Estim Creat Clear Calc Estimated GFR Random Glucose Lactic Acid Lactic Acid F/U @ 2Hr 2.3 H* Calcium Magnesium 1.9 Total Bilirubin 0.4 Direct Bilirubin 0.2 AST 43 H ALT 31 Alkaline Phosphatase 44 Troponin I High Sens C-Reactive Protein < 0.04 B-Natriuretic Peptide Total Protein 7.1 Albumin 4.5 Ethyl Alcohol 99 02/11/24 00:10 MCV MCH MCHC RDW Plt Count MPV Immature Gran % (Auto) Neut % (Auto) Lymph % (Auto) [place] % (Auto) Eos % (Auto) Baso % (Auto) Lymph # (Auto) [place] # (Auto) Eos # (Auto) Baso # (Auto) Abs Immat Gran (auto) Absolute Neuts (auto) Absolute Nucleated RBC Nucleated RBC % (auto) PT INR VBG pH 7.32 VBG pCO2 38 VBG pO2 59 VBG HCO3 20 L VBG O2 Saturation 88.0 VBG Base Excess -5.0 Anion Gap Estim Creat Clear Calc Estimated GFR Random Glucose Lactic Acid Lactic Acid F/U @ 2Hr Calcium Magnesium Total Bilirubin Direct Bilirubin AST ALT Alkaline Phosphatase Troponin I High Sens C-Reactive Protein B-Natriuretic Peptide Total Protein Albumin Ethyl Alcohol Imaging Radiologist's Impressions: Impressions Chest X-Ray 02/10/24 22:00 IMPRESSION: Hyperexpanded lungs. No acute pulmonary findings. Assessment and Plan (1) COPD exacerbation: Status: Acute Plan This is a 62-year-old male with pertinent history essential hypertension, mood disorder, tobacco use disorder, COPD not on home oxygen who presents to the emergency department for evaluation of dyspnea. #. Acute hypoxemic respiratory failure due to acute exacerbation of COPD. Will admit patient with supplemental oxygen. Scheduled and p.r.n. DuoNebs. Initiating systemic steroids. Also initiating azithromycin for pleiotropic effect. Continue home inhalers #. Mood disorder. Continue home mood stabilizers #. Essential hypertension. Continue home antihypertensives #. Tobacco use disorder. Counseled regarding cessation. Refused nicotine patch Med rec pending DVT prophylaxis: Lovenox Full code Admit as inpatient and will require two night minimum hospital stay for supplemental oxygen, IV steroids (as above), which is not possible in a lesser acute setting. Quality Stroke Does the patient have a stroke diagnosis?: No VTE Prior VTE?: No VTE Risk Level:: Medical - moderate - high VTE Device Contraindication: Treatment Not Indicated VTE Drug Contraindication: N/A - Med Ordered
[2024-02-11 02:12] LABS: Reflex Lactate? 2 Y
[2024-02-11] MEDS: Enoxaparin Sodium 40 MG/0.4 ML SYRINGE SUBCUT ×2 (02:37→21:15)
--- NOTE | 2024-02-11 02:40 | PC.NURSE ---
Pt medicated per mar. Pt resting in bed comfortably, pt denies pain and no signs of distress. Plan of care ongoing.
[2024-02-11 02:58] LABS: ~Lactic Acid-LAB USE ONLY 1.2 mmol/L (0.5-2.0)
[2024-02-11 07:00] LABS: Basophils Percent Auto 0.2 % (0-2); Hematocrit 40.8 % (42.0-52.0); Hemoglobin 14.3 g/dl (14.0-18.0); Imm Gran Abs Auto 0.01 X10*3/uL (0.00-0.03); Imm Gran Pct Auto 0.2 % (0.0-0.4); Lymphocytes Absolute Auto 0.3 X10*3/uL (1.2-4.9); Lymphocytes Percent Auto 6.2 % (20-40); MANUAL DIFF FLAG SCAN; Mean Corpuscular Hemoglobin 33.8 pg (27.0-33.0); Mean Corpuscular Volume 96.5 fL (80.0-98.0); Mean Platelet Volume 8.6 fL (9.4-12.4); Monocytes Absolute Auto 0.1 X10*3/uL (0.1-1.2); Neutrophils Absolute Auto 4.6 x10*3/uL (2.0-8.3); Neutrophils Percent Auto 92.4 % (45-73); Platelet Count 305 X10*3/uL (160-400); Red Blood Count 4.23 X10*6/uL (4.60-5.80); Red Cell Distribution Width 12.7 % (11.0-16.0); SCAN SMEAR FLAG 1
[2024-02-11 07:11] LABS: Anion Gap 14 (12-20); Blood Urea Nitrogen 9 mg/dL (9-16); Calcium 8.8 mg/dL (8.4-10.2); Carbon Dioxide 25 mmol/L (22-29); Chloride 102 mmol/L (96-108); Creatinine Clr Calc Pharmacy 85.1; Estimated Glomerular Filt Rate > 60; Glucose Random 126 mg/dL (60-115); Potassium 4.8 mmol/L (3.3-5.1); Sodium 136 mmol/L (135-145)
--- NOTE | 2024-02-11 07:33 | P.PNIM_ITS ---
Subjective Subjective Date of Service: 02/11/24 Interval History: Seen in follow-up for acute hypoxemic respiratory failure secondary to COPD exacerbation Interval history: Reports feeling better but still has productive cough. Denies shortness of breath or wheezing. Remains on 2 L supplemental O2, weaned from BiPAP early this morning. Afebrile Review of Systems Review of Systems: Yes Unobtainable due to mental status Physical Exam 2 Vital Signs: Vital Signs: Last Vital Signs Temp 98.0 F 02/11/24 05:16 Pulse 95 02/11/24 05:16 Resp 20 02/11/24 05:16 BP 122/83 02/11/24 05:16 Pulse Ox 98 02/11/24 05:16 O2 Del Method Nasal Cannula 02/11/24 05:16 O2 Flow Rate 2 02/11/24 05:16 Oxygen Flow Rate 6 02/10/24 21:38 BMI result Body Mass Index 18.7 Constitutional - Awake and Alert, No apparent distress Eyes - PERRLA, EOMI Cardiovascular - S1S2, RRR, No edema Respiratory - Normal lung expansion, Normal respiratory effort, No respiratory distress, bilateral diffuse expiratory wheezing Gastrointestinal - NT / ND; +BS; No rebound or guarding Extremities - no calf tenderness bilaterally, no swelling Skin - Warm/Dry Neurological - Alert & oriented x3 Psychological - Appropriate affect Objective Data Active Medications Acetaminophen (Acetaminophen 325 Mg Tablet) 650 mg PO Q6H PRN PRN Reason: Pain, Mild (Pain Scale 1-3) Albuterol/Ipratropium (Albuterol/Iprat 2.5/0.5mg 3 Ml Ampul.Neb) 3 ml INHALE RQ4H WHILE AWAKE [facility] Albuterol/Ipratropium (Albuterol/Iprat 2.5/0.5mg 3 Ml Ampul.Neb) 3 ml INHALE Q4H PRN PRN Reason: Wheezing Enoxaparin Sodium (Enoxaparin Sodium 40 Mg/0.4 Ml Syringe) 40 mg SUBCUT BEDTIME [facility] Last Admin: 02/11/24 02:37 Dose: 40 mg Documented By: LAST Azithromycin 500 mg/ Sodium (Chloride) 250 mls @ 125 mls/hr IV Q24H [facility] Melatonin (Melatonin 3 Mg Tablet) 6 mg PO BEDTIME PRN PRN Reason: Insomnia Methylprednisolone Sodium Succinate (Methylprednisolone Sod Succ 40 Mg/Ml Vial) 40 mg IVPUSH Q12H [facility] Ondansetron HCl (Ondansetron Hcl 4 Mg/2 Ml Vial) 4 mg IVPUSH Q8H PRN PRN Reason: Nausea and Vomiting Sodium Chloride (0.9 % Sodium Chloride Flush 3 Ml Syringe) 3 ml IVFLUSH QSHIFT [facility] Labs 02/11/24 06:41 02/11/24 06:41 Labs: Laboratory Results - last 24 hr 02/10/24 02/10/24 02/10/24 21:40 21:41 21:43 MCV 94.9 MCH 33.6 H MCHC 35.3 RDW 12.6 Plt Count 304 MPV 8.5 L Immature Gran % (Auto) 0.1 Neut % (Auto) 57.0 Lymph % (Auto) 31.5 Overton % (Auto) 9.4 Eos % (Auto) 1.6 Baso % (Auto) 0.4 Lymph # (Auto) 2.2 Overton # (Auto) 0.6 Eos # (Auto) 0.1 Baso # (Auto) 0.0 Abs Immat Gran (auto) 0.01 Absolute Neuts (auto) 3.9 Absolute Nucleated RBC 0.000 Nucleated RBC % (auto) 0.0 PT 11.3 INR 0.9 VBG pH VBG pCO2 VBG pO2 VBG HCO3 VBG O2 Saturation VBG Base Excess Anion Gap 15 Estim Creat Clear Calc 87.4 Estimated GFR > 60 Random Glucose 84 Lactic Acid 2.4 H* Lactic Acid F/U @ 2Hr Lactic Acid F/U @ 4Hr Calcium 9.1 Magnesium Total Bilirubin Direct Bilirubin AST ALT Alkaline Phosphatase Troponin I High Sens < 2.7 C-Reactive Protein B-Natriuretic Peptide 24 Total Protein Albumin Ethyl Alcohol 02/10/24 02/10/24 02/11/24 21:51 21:52 00:09 MCV MCH MCHC RDW Plt Count MPV Immature Gran % (Auto) Neut % (Auto) Lymph % (Auto) Overton % (Auto) Eos % (Auto) Baso % (Auto) Lymph # (Auto) Overton # (Auto) Eos # (Auto) Baso # (Auto) Abs Immat Gran (auto) Absolute Neuts (auto) Absolute Nucleated RBC Nucleated RBC % (auto) PT INR VBG pH 7.35 VBG pCO2 42 VBG pO2 73 VBG HCO3 23 VBG O2 Saturation 94.0 VBG Base Excess -1.9 Anion Gap Estim Creat Clear Calc Estimated GFR Random Glucose Lactic Acid Lactic Acid F/U @ 2Hr 2.3 H* Lactic Acid F/U @ 4Hr Calcium Magnesium 1.9 Total Bilirubin 0.4 Direct Bilirubin 0.2 AST 43 H ALT 31 Alkaline Phosphatase 44 Troponin I High Sens C-Reactive Protein < 0.04 B-Natriuretic Peptide Total Protein 7.1 Albumin 4.5 Ethyl Alcohol 99 02/11/24 02/11/24 02/11/24 00:10 02:45 06:41 MCV MCH MCHC RDW Plt Count MPV Immature Gran % (Auto) Neut % (Auto) Lymph % (Auto) Overton % (Auto) Eos % (Auto) Baso % (Auto) Lymph # (Auto) Overton # (Auto) Eos # (Auto) Baso # (Auto) Abs Immat Gran (auto) Absolute Neuts (auto) Absolute Nucleated RBC Nucleated RBC % (auto) PT INR VBG pH 7.32 VBG pCO2 38 VBG pO2 59 VBG HCO3 20 L VBG O2 Saturation 88.0 VBG Base Excess -5.0 Anion Gap 14 Estim Creat Clear Calc 85.1 Estimated GFR > 60 Random Glucose 126 H Lactic Acid Lactic Acid F/U @ 2Hr Lactic Acid F/U @ 4Hr 1.2 Calcium 8.8 Magnesium Total Bilirubin Direct Bilirubin AST ALT Alkaline Phosphatase Troponin I High Sens C-Reactive Protein B-Natriuretic Peptide Total Protein Albumin Ethyl Alcohol Assessment and Plan (1) Acute exacerbation of chronic obstructive airways disease: Status: Acute Plan 62-year-old male with pertinent history essential hypertension, mood disorder, tobacco use disorder, COPD not on home oxygen who presents to the emergency department for evaluation of dyspnea. #Acute hypoxemic respiratory failure due to acute exacerbation of COPD with sepsis -Met sepsis criteria on admission with tachcyardia and tachypnea- now resolved -IV methylprednisolone 40 mg b.i.d. -DuoNebs q.4h while awake, p.r.n. -continue maintenance inhalers -IV azithromycin for pleiotropic effect (initiated 02/09) -continue supplemental O2 to maintain oximetry 90-92%, wean as tolerated -Check RPP #Acute lactic acidosis -due to albuterol use, no severe sepsis #Mood disorder -continue home medications #Essential hypertension -home antihypertensives #Tobacco use disorder -Counseled regarding cessation -declines replacement therapy DVT prophylaxis-Lovenox Full code Patient require ongoing inpatient hospitalization for IV steroids and supplemental oxygen due to COPD exacerbation Quality Stroke Does the patient have a stroke diagnosis?: No VTE Prior VTE?: No VTE Risk Level:: Medical - moderate - high VTE Device Contraindication: Treatment Not Indicated VTE Drug Contraindication: N/A - Med Ordered
[2024-02-11 07:50] LABS: SLIDE REVIEW VERIFIED
[2024-02-11] MEDS: Albuterol/Iprat 2.5/0.5MG 3 ML AMPUL.NEB INHALE ×4 (07:53→19:20)
[2024-02-11] MEDS: methylPREDNISolone Sod Succ 40 MG/ML VIAL IVPUSH ×2 (09:52→21:15)
[2024-02-11] MEDS: 0.9 % Sodium Chloride Flush 3 ML SYRINGE IVFLUSH ×2 (09:52→18:31)
--- NOTE | 2024-02-11 10:05 | PHA.MEDREC ---
Pharmacy Consult ? Medication Reconciliation Pharmacy has completed the medication reconciliation. spoke with patient to confirm medications. He reports taking a 1/2 tablet of his metoprolol once daily.
[2024-02-11] MEDS: lisinopriL 10 MG TABLET PO (13:02)
[2024-02-11] MEDS: Metoprolol Tartrate 12.5 MG HALFTAB PO (13:02)
--- NOTE | 2024-02-11 19:31 | PC.NURSE ---
rt at bedside now with breathing tx.
[2024-02-11] MEDS: Azithromycin 500 MG in 0.9 % Sodium Chloride 250 ML 125 MG IV (23:55)
[2024-02-12 01:59] VITALS: BP 112/65; PULSE 79; RESP 16; TEMP 36.8; O2SAT 96
[2024-02-12] MEDS: Fluticasone/Vilanterol 200/25 BLST.W.DEV 1 PUFF INHALE (07:07)
[2024-02-12] MEDS: Albuterol/Iprat 2.5/0.5MG 3 ML AMPUL.NEB INHALE (07:07)
[2024-02-12 07:10] VITALS: PULSE 73; RESP 16; O2SAT 97
[2024-02-12 07:11] VITALS: BP 110/86; PULSE 82; RESP 20; TEMP 36.9; O2SAT 96
[2024-02-12 07:20] VITALS: BP 103/61; PULSE 74; RESP 22; TEMP 36.3; O2SAT 94
--- NOTE | 2024-02-12 07:54 | P.PNIM_ITS ---
Subjective Subjective Date of Service: 02/12/24 Physical Exam 2 Vital Signs: Vital Signs: Last Vital Signs Temp 97.4 F 02/12/24 07:20 Pulse 74 02/12/24 07:20 Resp 22 H 02/12/24 07:20 BP 103/61 02/12/24 07:20 Pulse Ox 94 02/12/24 07:20 O2 Del Method Room Air 02/12/24 07:20 O2 Flow Rate 2 02/11/24 08:02 Oxygen Flow Rate 6 02/10/24 21:38 BMI result Body Mass Index 18.7 Objective Data Active Medications Acetaminophen (Acetaminophen 325 Mg Tablet) 650 mg PO Q6H PRN PRN Reason: Pain, Mild (Pain Scale 1-3) Albuterol/Ipratropium (Albuterol/Iprat 2.5/0.5mg 3 Ml Ampul.Neb) 3 ml INHALE RQ4H WHILE AWAKE [facility] Last Admin: 02/12/24 07:07 Dose: 3 ml Documented By: HEBER Albuterol/Ipratropium (Albuterol/Iprat 2.5/0.5mg 3 Ml Ampul.Neb) 3 ml INHALE Q4H PRN PRN Reason: Wheezing Enoxaparin Sodium (Enoxaparin Sodium 40 Mg/0.4 Ml Syringe) 40 mg SUBCUT BEDTIME [facility] Last Admin: 02/11/24 21:15 Dose: 40 mg Documented By: GUSTAVO Fluticasone/Vilanterol (Fluticasone/Vilanterol 200/25 Blst.W.Dev) 1 puff INHALE RDAILY [facility] Last Admin: 02/12/24 07:07 Dose: 1 puff Documented By: HEBER Azithromycin 500 mg/ Sodium (Chloride) 250 mls @ 125 mls/hr IV Q24H [facility] Last Infusion: 02/12/24 02:30 Dose: Infused Documented By: GUSTAVO Lidocaine (Lidocaine 4 % Patch Adh..Patch) 1 patch TRANSDERMA DAILY PRN PRN Reason: back pain Lisinopril (Lisinopril 10 Mg Tablet) 10 mg PO DAILY [facility]; Protocol Last Admin: 02/11/24 13:02 Dose: 10 mg Documented By: BRAYDEN Melatonin (Melatonin 3 Mg Tablet) 6 mg PO BEDTIME PRN PRN Reason: Insomnia Methylprednisolone Sodium Succinate (Methylprednisolone Sod Succ 40 Mg/Ml Vial) 40 mg IVPUSH Q12H [facility] Last Admin: 02/11/24 21:15 Dose: 40 mg Documented By: GUSTAVO Metoprolol Tartrate (Metoprolol Tartrate 12.5 Mg Halftab) 12.5 mg PO DAILY [facility]; Protocol Last Admin: 02/11/24 13:02 Dose: 12.5 mg Documented By: BRAYDEN Ondansetron HCl (Ondansetron Hcl 4 Mg/2 Ml Vial) 4 mg IVPUSH Q8H PRN PRN Reason: Nausea and Vomiting Paroxetine HCl (Paroxetine Hcl 40 Mg Tablet) 40 mg PO DAILY [facility] Sodium Chloride (0.9 % Sodium Chloride Flush 3 Ml Syringe) 3 ml IVFLUSH QSHIFT [facility] Last Admin: 02/12/24 01:58 Dose: Not Given Documented By: GUSTAVO Non-Admin Reason: IV Running Labs 02/11/24 06:41 02/11/24 06:41 Microbiology Microbiology Results: Microbiology 02/10/24 21:51 Blood Culture - Preliminary Blood - Venous No growth after 24 hours. 02/10/24 21:42 Blood Culture - Preliminary Blood - Venous No growth after 24 hours. Quality Stroke Does the patient have a stroke diagnosis?: No VTE Prior VTE?: No VTE Risk Level:: Medical - moderate - high VTE Device Contraindication: Treatment Not Indicated VTE Drug Contraindication: N/A - Med Ordered
--- NOTE | 2024-02-12 07:55 | PC.NURSE ---
patient is sitting up eating breakfast, alert and oriented x4. patient respirations equal and unlabored, skin dry and intact, VSS
[2024-02-12] MEDS: PARoxetine HCL 40 MG TABLET PO (08:59)
[2024-02-12] MEDS: lisinopriL 10 MG TABLET PO (08:59)
[2024-02-12] MEDS: methylPREDNISolone Sod Succ 40 MG/ML VIAL IVPUSH (08:59)
[2024-02-12] MEDS: Metoprolol Tartrate 12.5 MG HALFTAB PO (08:59)
--- NOTE | 2024-02-12 09:56 | PM.DS ---
DS: Providers Provider Date of Service: 02/12/24 Date of admission: 02/11/24 01:09 Date of discharge: 02/12/24 Primary care physician: Unknown Physician Attending physician on admission: Davon Clifton Attending physician on discharge: Orlin Hernandez Discharging clinician: Mel La DS: Diagnosis Discharge Diagnosis (1) Acute exacerbation of chronic obstructive airways disease: Status: Acute DS: Summary Hospital Course Hospital Course: HPI on admission by Dr. Clifton 02/10: Chief Complaint: Dyspnea This is a 63-year-old male with pertinent history of hypertension, mood disorder, tobacco use disorder, COPD not on home oxygen who presents to the emergency department for evaluation of dyspnea. Patient states he started having dyspnea 3 days prior to presentation. It has been progressive and worse with ambulation. Patient also has associated wheezing and cough with yellowish sputum production. States he ran out of his home inhalers 3 days prior to presentation. Admits to smoking tobacco on and off. He denies fever, chills, chest discomfort, palpitations, abdominal pain, changes in urinary or bowel habits. In the emergency department, patient requiring supplemental oxygen and continues to wheeze despite DuoNeb treatments. Hospital course: Pt admitted to medicine for acute COPD exacberation. Initially required bipap in the ED given respiratory distress and patient fatiguing. He was weaned to supplemental O2 and was ultimately weaned completed from supplemental O2 as he repsonded well to IV steroids and scheduled duonebs. Had initially met sepsis criteria due to tachycardia and tachypnea which resolved with the previously mentioned therapies. No leukocytosis. There was no severe sepsis- lactic acidosis was r/t albuterol use, not severe sepsis. Chest xray negative for pneumonia but was treated with IV azithromycin for pleiotropic effect. Hospital course was otherwise uncomplicated. He will be discharged home with prednisone 40mg daily x 5 days and azithromycin 250mg daily x 3 days. Refills sent for symbicort and combivent (pt reports he ran out of inhalers which could have contributed to this exacerbation). Use as prescribed and continue albuterol only as needed for shortness of breath and wheezing. Can continue robitussin prn for cough. Declined NRT for smoking cessation. Counseled on the importance of total cessation. For htn, was continued on lisinopril and meotprolol. For mood disorder, was continued on paroxitine. Continue home medications as prescribed and follow up with pcp. Time spent discussing smoking cessation with patient: 3 to 10 minutes Status at Discharge Functional status at discharge: independent ambulation Overall status at discharge: patient is progressing back to baseline Time Attestation Discharge Coordination Time (in mins): 41 Quality: Safe Use of Opioids Does Pt have an Active Cancer Diagnosis on the Problem List?: No Quality: Stroke Does the patient have a stroke diagnosis?: No Physical Exam Vital Signs: Vital Signs: Last Vital Signs Temp 97.4 F 02/12/24 07:20 Pulse 74 02/12/24 07:20 Resp 22 H 02/12/24 07:20 BP 103/61 02/12/24 07:20 Pulse Ox 94 02/12/24 07:20 O2 Del Method Room Air 02/12/24 07:20 O2 Flow Rate 2 02/11/24 08:02 Oxygen Flow Rate 6 02/10/24 21:38 BMI result Body Mass Index 18.7 Constitutional - Awake and Alert, No apparent distress Eyes - PERRLA, EOMI Cardiovascular - S1S2, RRR, No edema Respiratory - Normal lung expansion, Normal respiratory effort, No respiratory distress, CTA bilaterally Gastrointestinal - NT / ND; +BS; No rebound or guarding Extremities - no calf tenderness bilaterally, no swelling Skin - Warm/Dry Neurological - Alert & oriented x3 Psychological - Appropriate affect DS: Data Data Completed and Pending Completed studies during hospitalization [Text1]: Procedures Assistance with Respiratory Ventilation, Less than 24 Consecutive Hours, Continuous Positive Airway Pressure (11/14/20) Labs on day of discharge: Preliminary micro results at discharge 02/10/24 21:51 Blood Culture - Preliminary Blood - Venous No growth after 24 hours. 02/10/24 21:42 Blood Culture - Preliminary Blood - Venous No growth after 24 hours. Discharge Plan Discharge Anticipated Discharge Date/Time: 02/12/24 09:43 Patient Disposition: Home, Self-Care Discharge Diagnosis: copd exacerbation Referrals: Physician,Unknown J [Primary Care Provider] - 1 Week Discharge Medications: New prednisone 20 mg tablet 40 mg PO DAILY Qty: 10 0RF azithromycin 250 mg tablet 250 mg PO .nightly 3 Days Qty: 3 0RF Rx Instructions: start on day 2 of therapy Continued lisinopril 10 mg tablet 10 mg PO DAILY metoprolol tartrate 25 mg tablet 12.5 mg PO DAILY lidocaine 5 % adhesive patch,medicated 1 patch topical DAILY PRN (Reason: Pain) paroxetine HCl 40 mg tablet 40 mg PO DAILY albuterol sulfate [Ventolin HFA] 90 mcg/actuation HFA aerosol inhaler 2 puff inhalation Q4H PRN (Reason: Wheezing) Qty: 8.5 2RF budesonide-formoterol [Symbicort] 160-4.5 mcg/actuation HFA aerosol inhaler 2 puff INHALATION BID Qty: 1 2RF Combivent Respimat 20-100 mcg/actuation mist 1 puff INHALATION QID Qty: 4 3RF Discharge Orders: Discharge Order (Routine); Ordered 02/12/24 Ordered By: Mel La Diet: Advance to usual diet Activity on Discharge: As tolerated Stand Alone Forms: Patient Portal Discharge page Print Language: Nepalese Care Plan Goals: Continue prednisone 40mg daily x 5 days for copd exacerbation Take azithromycin 250mg NIGHTLY x3 more doses Refills sent for daily inhalers (symbicort and combivent). Use as prescribed. Use albuterol only as needed Can use robitussin for cough as needed STOP SMOKING Health Concerns: COPD exacberation Plan of Treatment: See care plan goals Assessment: See care plan goals. See discharge summary Patient Instructions: How to Stop Smoking (DC), COPD (Chronic Obstructive Pulmonary Disease) (DC)
[2024-02-12 10:09] VITALS: BP 101/65; PULSE 84; RESP 19; TEMP 36.7; O2SAT 93
--- NOTE | 2024-02-12 11:02 | MHC.CM.PN ---
PT REPORTS HE LIVES WITH ROOMMATES AND IS INDEPENDENT WITH CARE HE HAS NO SERVICES AND A LEG BRACE FOR DME DUE TO METATARSAL AMP ~15 YEARS AGO HE REPORTS HE ALSO HAS A CANE, BUT ONLY USES IT WHEN HE GOES [place]ING [place] [address] PT SAYS HIS FORMER PCP, BRAD DELAROSA IN [facility] IS NO LONGER AVAILABLE, SO HE HAS BEEN SEEING WHOEVER IS AVAILABLE THERE PT SAYS THE OFFICE IS AN HOUR AND A HALF AWAY THOUGH SO HE IS PLANNING TO FIND SOMEONE CLOSER HCP ON FILE PT WILL DC HOME TODAY WITH NO SERVICES VIA LYFT TRANSPORT
[2024-02-12 11:05] LABS: Adenovirus PCR Not Detected (Not Detect.); Bordetella parapertussis PCR Not Detected (Not Detect.); Bordetella pertussis PCR Not Detected (Not Detect.); Chlamydia pneumoniae PCR Not Detected (Not Detect.); Coronavirus 229E PCR Not Detected (Not Detect.); Coronavirus HKU1 PCR Not Detected (Not Detect.); Coronavirus NL63 PCR Not Detected (Not Detect.); Coronavirus OC43 PCR Not Detected (Not Detect.); Human metapneumovirus PCR Not Detected (Not Detect.); Influenza A PCR Not Detected (Not Detect.); Influenza B PCR Not Detected (Not Detect.); Mycoplasma pneumoniae PCR Not Detected (Not Detect.); Parainfluenza 1 PCR Not Detected (Not Detect.); Parainfluenza 2 PCR Not Detected (Not Detect.); Parainfluenza 3 PCR Not Detected (Not Detect.); Parainfluenza 4 PCR Not Detected (Not Detect.); RSV PCR Not Detected (Not Detect.); Rhino/Enterovirus PCR Not Detected (Not Detect.)
--- NOTE | 2024-02-12 11:06 | PC.NURSE ---
patient ambulated off unit with steady gait, case management ordered patient a lyft for a safe ride home.
[2024-02-12 12:12] LABS: SARS-CoV-2 PCR Not Detected (Not Detect.)
== END 2024-02-12 11:05 | disposition home or self-care (01) | DRG 720 ==
LOC: HO.ED 02-11 01:17 → HO.EDOVER 02-11 01:45
PROVIDERS: Internal Medicine; Admitting Provider Student in an Organized Health Care Education/Training Program; Emergency Provider Emergency Medicine; Visit Provider Physician Assistant
DX: A41.9 Sepsis, unspecified organism (principal); J96.01 Acute respiratory failure with hypoxia; J44.1 Chronic obstructive pulmonary disease with (acute) exacerbation; F17.210 Nicotine dependence, cigarettes, uncomplicated; F39 Unspecified mood [affective] disorder; I10 Essential (primary) hypertension; Z71.6 Tobacco abuse counseling; Z20.822 Contact with and (suspected) exposure to COVID-19; Z91.148 Patient's other noncompliance with medication regimen for other reason; Z79.899 Other long term (current) drug therapy
CPT/HCPCS: 36415; 71045; 80048; 80076; 80307; 82803; 83605; 83735; 83880; 84484; 85025; 85610; 86140; 87040; 87633; 93005; 94640; 99285; J0456; J0696; J1650; J2919; J3475

== ENCOUNTER → 2024-02-10 21:33 | Outpatient (BNV) | payer OTHER, SELFPAY | PROVIDERS: Admitting Provider Student in an Organized Health Care Education/Training Program; Emergency Provider Emergency Medicine; Visit Provider Internal Medicine Cardiovascular Disease | DX: R00.0 Tachycardia, unspecified (principal); R06.02 Shortness of breath | CPT/HCPCS: 93010 ==

== ENCOUNTER → 2024-02-10 21:46 | Outpatient (BNV) | payer OTHER, SELFPAY | PROVIDERS: Emergency Provider Emergency Medicine; Visit Provider Student in an Organized Health Care Education/Training Program | DX: J44.1 Chronic obstructive pulmonary disease with (acute) exacerbation (principal) | CPT/HCPCS: 99222; 99239; 99499 ==

== ENCOUNTER 2024-07-19 00:06 | Emergency (ER) | payer OTHER, SELFPAY ==
[2024-07-19] VITALS (7 sets, daily range): BP systolic 101–219; BP diastolic 60–114; PULSE 95–130; RESP 18–32; TEMP 36.7–36.9; O2SAT 91–97; BMI 17.1
--- NOTE | ~2024-07-19 | XR_ITS ---
EXAMINATION: XR CHEST CLINICAL INFORMATION: Shortness of breath COMPARISON: Chest radiograph 02/10/2024. TECHNIQUE: Frontal view of the chest was obtained. FINDINGS: Partial visualization is made of lower anterior cervical plate and screw fixation instrumentation. Cardiac silhouette is normal in size. Moderate aortic calcific atherosclerosis. No effusions or pneumothoraces. Normal pattern of pulmonary vasculature. No focal pulmonary consolidation. XR/XR chest 1V IMPRESSION: No acute cardiopulmonary abnormalities. Electronically signed by: Sammy Haider MD 07/19/2024 01:13 AM EDT
--- NOTE | 2024-07-19 00:12 | ECG_ITS ---
Test Reason : DSYPNEA Blood Pressure : / mmHG Vent. Rate : 114 BPM Atrial Rate : 114 BPM P-R Int : 124 ms QRS Dur : 080 ms QT Int : 316 ms P-R-T Axes : 093 080 082 degrees QTc Int : 435 ms Sinus tachycardia Otherwise normal ECG When compared with ECG of 10-FEB-2024 21:33, No significant change was found Referred By: Goldy [place] Electronically Signed By:ARIEL RECIO
[2024-07-19] MEDS: Magnesium Sulfate/H2O 2 GM/50 ML PIGGYBACK IV (00:18)
[2024-07-19] MEDS: Albuterol Sulfate 5 MG, Albuterol Sulfate (0.083%) 2.5 MG 7.5 MG INHALE (00:27)
[2024-07-19 00:30] LABS: MANUAL DIFF FLAG NO
[2024-07-19 00:31] LABS: Basophils Percent Auto 0.3 % (0-2); Eosinophils Absolute Auto 0.2 X10*3/uL (0.0-0.4); Eosinophils Percent Auto 1.4 % (0-4); Hematocrit 40.3 % (42.0-52.0); Hemoglobin 14.5 g/dl (14.0-18.0); Imm Gran Abs Auto 0.04 X10*3/uL (0.00-0.03); Imm Gran Pct Auto 0.4 % (0.0-0.4); Lymphocytes Absolute Auto 2.1 X10*3/uL (1.2-4.9); Mean Corpuscular Hemoglobin 33.2 pg (27.0-33.0); Mean Corpuscular Volume 92.2 fL (80.0-98.0); Mean Platelet Volume 8.1 fL (9.4-12.4); Monocytes Absolute Auto 0.9 X10*3/uL (0.1-1.2); Monocytes Percent Auto 8.4 % (2-11); Neutrophils Absolute Auto 7.4 x10*3/uL (2.0-8.3); Neutrophils Percent Auto 69.5 % (45-73); Platelet Count 320 X10*3/uL (160-400); Red Blood Count 4.37 X10*6/uL (4.60-5.80); Red Cell Distribution Width 12.3 % (11.0-16.0); White Blood Count 10.6 X10*3/uL (4.8-10.8)
[2024-07-19] MEDS: Albuterol Sulfate (0.083%) 2.5 MG/3 ML VIAL.NEB INHALE (00:32)
[2024-07-19 00:42] LABS: Anion Gap 18 (12-20); Blood Urea Nitrogen 10 mg/dL (9-16); Calcium 8.9 mg/dL (8.4-10.2); Carbon Dioxide 21 mmol/L (22-29); Chloride 97 mmol/L (96-108); Creatinine Clr Calc Pharmacy 72.5; Estimated Glomerular Filt Rate > 60; Glucose Random 104 mg/dL (60-115); Potassium 4.6 mmol/L (3.3-5.1); Sodium 131 mmol/L (135-145)
[2024-07-19 00:49] LABS: Troponin-I High Sensitivity < 2.7 ng/L (<3.5-35.0)
[2024-07-19 01:07] LABS: Influenza A PCR NEGATIVE (Negative); Influenza B PCR NEGATIVE (Negative); Resp Syncy Virus RNA Qual PCR NEGATIVE (Negative); SARS COV2 PCR INHOUSE NEGATIVE (Negative)
[2024-07-19 02:00] LABS: Venous Blood Gas Refer to POC result
[2024-07-19 02:03] LABS: VBG Base Excess 0.7 mmol/L; VBG HCO3 24 mmol/L (22-26); VBG pCO2 37 mmHg; VBG pH 7.42 (7.32-7.43); VBG pO2 63 mmHg
--- NOTE | 2024-07-19 02:40 | ED.SOB ---
HPI - SOB/Dyspnea General Chief Complaint: Dyspnea Stated Complaint: SOB COPD exacerbated x2 weeks Time Seen by Provider: 07/19/24 00:11 Source: patient and EMS Mode of arrival: EMS Limitations: no limitations History of Present Illness ED Provider: Dr. [place] HPI Narrative: Patient is a severe smoker with history of COPD who presents with severe shortness of breath. EMS states that they gave a duoneb and solumedrol Related Data Home Medications ?Medication ?Instructions ?Recorded ?Confirmed lisinopril 10 mg tablet 10 mg PO DAILY 05/17/23 02/11/24 metoprolol tartrate 25 mg tablet 12.5 mg PO DAILY 05/17/23 02/11/24 lidocaine 5 % topical patch 1 patch topical DAILY PRN Pain 02/11/24 02/11/24 paroxetine HCl 40 mg tablet 40 mg PO DAILY 02/11/24 02/11/24 Previous Rx's ?Medication ?Instructions ?Recorded albuterol sulfate 90 mcg/actuation 2 puff inhalation Q4H PRN Wheezing 02/12/24 aerosol inhaler (Ventolin HFA) #8.5 grams azithromycin 250 mg tablet 250 mg PO .nightly 3 days #3 tabs 02/12/24 budesonide-formoterol HFA 160 2 puff inhalation BID #1 ea 02/12/24 mcg-4.5 mcg/actuation aerosol inhaler (Symbicort) ipratropium 20 mcg-albuterol 100 1 puff inhalation QID #4 grams 02/12/24 mcg/actuation mist for inhalation (Combivent Respimat) prednisone 20 mg tablet 40 mg (2 x 20 mg) PO DAILY #10 tabs 02/12/24 albuterol sulfate 90 mcg/actuation 2 puff inhalation Q4-6H PRN 07/19/24 aerosol inhaler (Proventil HFA) shortness of breath or wheezing #8.5 grams prednisone 20 mg tablet 60 mg (3 x 20 mg) PO DAILY #12 tabs 07/19/24 Allergies Allergy/AdvReac Type Severity Reaction Status Date / Time No Known Allergies Allergy Verified 07/19/24 00:11 [No Known Allergies*] Review of Systems Review of Systems: Yes all other systems are reviewed and are negative Neurologic: Denies Sensory deficit (Neuro) PMFSH Past Medical History Medical History Tobacco use disorder Mood disorder Essential hypertension COPD (chronic obstructive pulmonary disease) Surgical History History 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 Social History Social History Household Members: Other Household Members Other:: friends Housing: House Do you presently have visiting nurse or other home services: No Alcohol intake: current Alcohol intake frequency: 0-2 drinks per day Alcohol type: beer Comment: pt feels relieved of chest discomfort and difficulty breathing Patient Tobacco Use Status: Current everyday Tobacco user Tobacco use type: Cigarette Cigarettes Per Day: 5 Smoked in Last 30 Days: Yes Use of substances other than those prescribed or required for medical reasons: No Substance Use Type: Marijuana Advance Directives: No Advance Directives Information Provided: No Do you have a plan to hurt others: No Plan service: No Current occupational status: unemployed Physical Exam Vital Signs: Vital Signs: Last Vital Signs Temp 98.4 F 07/19/24 00:11 Pulse 100 07/19/24 04:53 Resp 21 H 07/19/24 04:53 BP 112/69 07/19/24 04:53 Pulse Ox 97 07/19/24 04:53 O2 Del Method Room Air 07/19/24 04:53 BMI result Body Mass Index 17.1 Const: Other: Cachectic ill appearing very short of breath Orientation/consciousness: oriented to person and patient oriented x3 Limitations: no limitations HEENT: Head: Yes normal to inspection Ears: external ears normal General nose exam: Normal external nose present Mouth: Normal oral and palatal mucosa present and oropharynx normal Throat: Yes posterior oropharynx normal Eyes: General: appearance normal, both eyes and all related structures Neck: Other: supple Neck: Yes normal visual inspection Chest: Chest palpation & inspection: normal inspection of the chest Resp: Other: distant breath sounds and rhonchi, retracting Cardio: Jugular venous distension: no JVD Rate: regular rate Rhythm: regular rhythm Heart sounds: S1 normal heart sound present and S2 normal heart sound present GI: Inspection: Yes normal to inspection Palpation (GI): Soft to palpation, nontender and No hepatosplenomegaly present Auscultation: normal bowel sounds : General: Yes no CVA tenderness Back/Spine/Pelvis: Back: no CVA tenderness Skin: General skin exam: no rashes or lesions noted Neuro: General: oriented to person and patient oriented x3 Cranial nerves: Yes CN's II-XII intact bilaterally Motor exam (neuro): 5/5 motor strength present throughout Sensory Exam: No Sensory deficit (Neuro) Extrem: General: Yes normal to inspection Psych: Appearance: grossly normal Course Reevaluation(s) Reevaluation #1: I spent 40 minutes of critical care, with interventions, assessments, speaking to patient, consultants, and family. Time: 06:24 Reevaluation #2: patient improved significantly will be able to dc home as oxygen is normal and patient is sleeping comfortably Time: 06:25 Medications Administered Discontinued Medications Generic Name Dose Route Start Last Admin Trade Name Freq PRN Reason Stop Dose Admin Albuterol Sulfate 5 mg/ 7.5 mg 07/19/24 00:13 07/19/24 00:27 Albuterol Sulfate 2.5 mg INHALE 07/19/24 00:14 7.5 mg ONCE ONE Administration Albuterol Sulfate 2.5 mg 07/19/24 00:28 07/19/24 00:32 Albuterol Sulfate (0.083%) 2.5 Mg/3 Ml Vial.Neb INHALE 07/19/24 00:29 2.5 mg ONCE ONE Administration Albuterol Sulfate 2.5 mg/ 5 mg 07/19/24 03:51 07/19/24 04:04 Albuterol Sulfate 2.5 mg INHALE 07/19/24 03:52 5 mg ONCE ONE Administration Magnesium Sulfate 2 gm in 50 mls @ 25 mls/hr 07/19/24 00:14 07/19/24 02:19 Magnesium Sulfate/H2o IV 07/19/24 02:13 Infused ONCE ONE Infusion Medical Decision Making Differential Diagnosis Differential Diagnoses: The differential diagnosis associated with the presentation includes (chronic obstructive pulmonary disease, pneumonia, respiratory failure, covid, rsv, flu) Admission/Observation Consideration of admission/observation: Escalation of care including admission/observation considered (upon arrival patient was considered for admission) Lab Data 07/19/24 00:26 07/19/24 00:26 Labs: Lab Results 07/19/24 07/19/24 07/19/24 Range/Units 00:25 00:26 01:56 WBC 10.6 (4.8-10.8) X10*3/uL RBC 4.37 L (4.60-5.80) X10*6/uL Hgb 14.5 (14.0-18.0) g/dl Hct 40.3 L (42.0-52.0) % MCV 92.2 (80.0-98.0) fL MCH 33.2 H (27.0-33.0) pg MCHC 36.0 (31.0-36.0) g/dl RDW 12.3 (11.0-16.0) % Plt Count 320 (160-400) X10*3/uL MPV 8.1 L (9.4-12.4) fL Immature Gran % (Auto) 0.4 (0.0-0.4) % Neut % (Auto) 69.5 (45-73) % Lymph % (Auto) 20.0 (20-40) % [place] % (Auto) 8.4 (2-11) % Eos % (Auto) 1.4 (0-4) % Baso % (Auto) 0.3 (0-2) % Lymph # (Auto) 2.1 (1.2-4.9) X10*3/uL [place] # (Auto) 0.9 (0.1-1.2) X10*3/uL Eos # (Auto) 0.2 (0.0-0.4) X10*3/uL Baso # (Auto) 0.0 (0.0-0.2) X10*3/uL Abs Immat Gran (auto) 0.04 H (0.00-0.03) X10*3/uL Absolute Neuts (auto) 7.4 (2.0-8.3) x10*3/uL Absolute Nucleated RBC 0.000 (0.0-0.012) X10*3/uL Nucleated RBC % (auto) 0.0 (0.0-0.2) /100WBC VBG pH 7.42 (7.32-7.43) VBG pCO2 37 mmHg VBG pO2 63 mmHg VBG HCO3 24 (22-26) mmol/L VBG O2 Saturation 94.0 % VBG Base Excess 0.7 mmol/L Sodium 131 L (135-145) mmol/L Potassium 4.6 (3.3-5.1) mmol/L Chloride 97 (96-108) mmol/L Carbon Dioxide 21 L (22-29) mmol/L Anion Gap 18 (12-20) BUN 10 (9-16) mg/dL Creatinine 0.82 (0.5-1.4) mg/dL Estim Creat Clear Calc 72.5 Estimated GFR > 60 Random Glucose 104 (60-115) mg/dL Calcium 8.9 (8.4-10.2) mg/dL Troponin I High Sens < 2.7 (<3.5-35.0) ng/L Influenza Type A (PCR) NEGATIVE (Negative) Influenza Type B (PCR) NEGATIVE (Negative) RSV RNA Qual (PCR) NEGATIVE (Negative) SARS-CoV-2 RNA (RT-PCR) NEGATIVE (Negative) Independent Interpretation I performed an independent interpretation of an: EKG (sinus tachycardia 114, no st or twave changes) and Plain X-Ray (COPD changes no infiltrate) Independent Historian Clinical information obtained from an independent historian. History obtained from or confirmed by: EMS External Record Review External record reviewed: Outpatient record Prescription Management I considered prescription management with: Antibiotic (no evidence of pneumonia on CXR) Chronic Conditions Patient?s care impacted by: Other (copd) Social Determinants Patient?s care significantly limited by Social Determinants of Health including: Low income Discharge Plan Discharge Clinical Impression: Acute exacerbation of chronic obstructive airways disease, Tobacco use disorder Patient Disposition: Home, Self-Care Instructions: COPD (Chronic Obstructive Pulmonary Disease) (ED) Prescriptions: New albuterol sulfate [Proventil HFA] 90 mcg/actuation HFA aerosol inhaler 2 puff inhalation Q4-6H PRN (Reason: shortness of breath or wheezing) Qty: 8.5 0RF prednisone 20 mg tablet 60 mg PO DAILY Qty: 12 0RF No Action lisinopril 10 mg tablet 10 mg PO DAILY metoprolol tartrate 25 mg tablet 12.5 mg PO DAILY lidocaine 5 % adhesive patch,medicated 1 patch topical DAILY PRN (Reason: Pain) paroxetine HCl 40 mg tablet 40 mg PO DAILY prednisone 20 mg tablet 40 mg PO DAILY Qty: 10 0RF azithromycin 250 mg tablet 250 mg PO .nightly 3 Days Qty: 3 0RF Rx Instructions: start on day 2 of therapy albuterol sulfate [Ventolin HFA] 90 mcg/actuation HFA aerosol inhaler 2 puff inhalation Q4H PRN (Reason: Wheezing) Qty: 8.5 2RF budesonide-formoterol [Symbicort] 160-4.5 mcg/actuation HFA aerosol inhaler 2 puff INHALATION BID Qty: 1 2RF Combivent Respimat 20-100 mcg/actuation mist 1 puff INHALATION QID Qty: 4 3RF Referrals: Physician,Unknown J [Primary Care Provider] - 2 days Print Language: Romanian
[2024-07-19] MEDS: Albuterol Sulfate 2.5 MG, Albuterol Sulfate (0.083%) 2.5 MG 5 MG INHALE (04:04)
== END 2024-07-19 07:00 | disposition home or self-care (01) ==
PROVIDERS: Emergency Provider Emergency Medicine
DX: J44.1 Chronic obstructive pulmonary disease with (acute) exacerbation (principal); R06.02 Shortness of breath; R00.0 Tachycardia, unspecified; I10 Essential (primary) hypertension; F17.210 Nicotine dependence, cigarettes, uncomplicated; F12.90 Cannabis use, unspecified, uncomplicated; Z03.818 Encounter for observation for suspected exposure to other biological agents ruled out; Z79.899 Other long term (current) drug therapy
CPT/HCPCS: 0241U; 36415; 71045; 80048; 82803; 84484; 85025; 93005; 94640; 96365; 96366; 99285; J3475

== ENCOUNTER → 2024-07-19 00:12 | Outpatient (BNV) | payer OTHER, SELFPAY | PROVIDERS: Emergency Provider Emergency Medicine; Visit Provider Internal Medicine | DX: R00.0 Tachycardia, unspecified (principal); R06.09 Other forms of dyspnea | CPT/HCPCS: 93010 ==

== ENCOUNTER 2024-10-01 20:52 | Emergency (ER) | payer OTHER, SELFPAY ==
--- NOTE | 2024-10-01 | ECG_ITS ---
Test Reason : sob Blood Pressure : */* mmHG Vent. Rate : 112 BPM Atrial Rate : 112 BPM P-R Int : 122 ms QRS Dur : 82 ms QT Int : 330 ms P-R-T Axes : 88 79 67 degrees QTcB Int : 450 ms Poor data quality Sinus tachycardia When compared with ECG of 19-Jul-2024 00:11, Poor data quality in current ECG precludes serial comparison Referred By: Generic ED Physician Electronically Signed By: Prosper Garcia
--- NOTE | ~2024-10-01 | XR_ITS ---
CLINICAL HISTORY: sob, copd 1 view chest x-ray Comparison: CR/SR - XR CHEST 1V - 07/19/24 00:10 EDT Findings: Emphysema. No consolidation, pleural effusion or pneumothorax. Normal size heart. No acute fracture. Anterior cervical discectomy and fusion of the lower cervical spine. IMPRESSION: 1. No acute findings. This document has been electronically signed by: Miki Chiu MD on 10/01/2024 23:10:48
[2024-10-01 21:15] VITALS: BP 155/100; PULSE 117; RESP 27; TEMP 36.7; O2SAT 99
[2024-10-01] MEDS: methylPREDNISolone Sod Succ 125 MG/2 ML VIAL IVPUSH (21:15)
[2024-10-01] MEDS: Magnesium Sulfate/H2O 2 GM/50 ML PIGGYBACK IV (21:15)
[2024-10-01 21:27] LABS: MANUAL DIFF FLAG NO
[2024-10-01 21:28] LABS: Basophils Percent Auto 0.2 % (0-2); Eosinophils Percent Auto 0.5 % (0-4); Hematocrit 40.3 % (42.0-52.0); Hemoglobin 14.6 g/dl (14.0-18.0); Imm Gran Abs Auto 0.03 X10*3/uL (0.00-0.03); Imm Gran Pct Auto 0.3 % (0.0-0.4); Lymphocytes Absolute Auto 1.7 X10*3/uL (1.2-4.9); Lymphocytes Percent Auto 18.8 % (20-40); Mean Corpuscular HGB Conc 36.2 g/dl (31.0-36.0); Mean Corpuscular Hemoglobin 33.3 pg (27.0-33.0); Mean Platelet Volume 8.3 fL (9.4-12.4); Monocytes Absolute Auto 0.8 X10*3/uL (0.1-1.2); Monocytes Percent Auto 8.8 % (2-11); Neutrophils Absolute Auto 6.3 x10*3/uL (2.0-8.3); Neutrophils Percent Auto 71.4 % (45-73); Platelet Count 349 X10*3/uL (160-400); Red Blood Count 4.38 X10*6/uL (4.60-5.80); Red Cell Distribution Width 12.1 % (11.0-16.0); White Blood Count 8.8 X10*3/uL (4.8-10.8)
[2024-10-01] MEDS: Albuterol Sulfate 2.5 MG, Albuterol/Iprat 2.5/0.5MG 3 ML 3 ML INHALE (21:29)
[2024-10-01 21:30] VITALS: PULSE 96; RESP 20; O2SAT 97
[2024-10-01 21:34] LABS: Venous Blood Gas Refer to POC result
[2024-10-01 21:34] LABS: VBG Base Excess 3.5 mmol/L; VBG HCO3 28 mmol/L (22-26); VBG pCO2 43 mmHg; VBG pH 7.41 (7.32-7.43); VBG pO2 77 mmHg
--- NOTE | 2024-10-01 21:42 | ED.SOB ---
HPI - SOB/Dyspnea General Chief Complaint: Dyspnea Stated Complaint: SOB, DIMIN IN RT LOW LOBE, INCREASE WOB PER EMS Time Seen by Provider: 10/01/24 21:00 Source: patient and EMS Mode of arrival: EMS Limitations: no limitations History of Present Illness ED Provider: Dr. Emma Wray HPI Narrative: Patient comes to the emergency room complaining of shortness of breath for 24 hours now. According to the patient, patient has been using his pump without any significant relief. Patient does not have an at machine. According to EMS, patient's oxygen saturation was 96 - 97% on room air, patient is not O2 dependent. However, patient had accessory muscle usage, given a DuoNeb and brought to emergency room. Patient denies chest pain, no recent illnesses to his knowledge. Related Data Home Medications ?Medication ?Instructions ?Recorded ?Confirmed lisinopril 10 mg tablet 10 mg PO DAILY 05/17/23 02/11/24 metoprolol tartrate 25 mg tablet 12.5 mg PO DAILY 05/17/23 02/11/24 lidocaine 5 % topical patch 1 patch topical DAILY PRN Pain 02/11/24 02/11/24 paroxetine HCl 40 mg tablet 40 mg PO DAILY 02/11/24 02/11/24 Previous Rx's ?Medication ?Instructions ?Recorded albuterol sulfate 90 mcg/actuation 2 puff inhalation Q4H PRN Wheezing 02/12/24 aerosol inhaler (Ventolin HFA) #8.5 grams azithromycin 250 mg tablet 250 mg PO .nightly 3 days #3 tabs 02/12/24 budesonide-formoterol HFA 160 2 puff inhalation BID #1 ea 02/12/24 mcg-4.5 mcg/actuation aerosol inhaler (Symbicort) ipratropium 20 mcg-albuterol 100 1 puff inhalation QID #4 grams 02/12/24 mcg/actuation mist for inhalation (Combivent Respimat) prednisone 20 mg tablet 40 mg (2 x 20 mg) PO DAILY #10 tabs 02/12/24 albuterol sulfate 90 mcg/actuation 2 puff inhalation Q4-6H PRN 07/19/24 aerosol inhaler (Proventil HFA) shortness of breath or wheezing #8.5 grams prednisone 20 mg tablet 60 mg (3 x 20 mg) PO DAILY #12 tabs 07/19/24 albuterol sulfate 2.5 mg/3 mL 2.5 mg (3 mL) inhalation Q4-6H PRN 10/02/24 (0.083 %) solution for nebulization shortness of breath or wheezing #75 mL albuterol sulfate 90 mcg/actuation 2 puff inhalation Q4-6H PRN 10/02/24 aerosol inhaler shortness of breath or wheezing #8.5 grams azithromycin 250 mg tablet 250 mg PO DAILY 4 days #4 tabs 10/02/24 prednisone 50 mg tablet 50 mg PO DAILY #4 tabs 10/02/24 Allergies Allergy/AdvReac Type Severity Reaction Status Date / Time No Known Allergies Allergy Verified 10/01/24 21:18 [No Known Allergies*] Review of Systems Review of Systems: Constitutional : No Weight loss, No Fever, No Chills, No Night Sweats, No Fatigue, No Malaise ENT/Mouth : No Hearing loss, No Ear Pain, No Nasal Congestion, No Sinus Pain, No Hoarseness, No sore throat, No Rhinorrhea, No Swallowing Difficulty Eyes: No Eye Pain, No Swelling, No Redness, No Foreign Body, No Discharge, No Vision Changes Cardiovascular : No Chest Pain, No SOB, No Dyspnea on Exertion, No Orthopnea, No Edema, No Palpitations Respiratory : Complaining of chronic cough, wheezing, shortness of breath with tightness no chest pain Gastrointestinal : No Nausea, No Vomiting, No Diarrhea, No Constipation, No abdominal Pain, No Hematochezia, No Melena Genitourinary : no irregular bleeding, No Dysuria, No Urinary Frequency, No Hematuria, No Urinary Incontinence, No Urgency, No Flank Pain, No Urinary Flow Changes, No Hesitancy Musculoskeletal : No joint pain, No Myalgias, No Joint Swelling Skin : No Skin Lesions, No rash Neuro : No Weakness, No Numbness, No Paresthesias, No Loss of Consciousness, No Dizziness, No Headache Psych : No Anxiety/Panic, No Depression, No SI/HI/AH/VH, No Social Issues, Heme/Lymph: No Bruising, No Bleeding,No Lymphadenopathy Endocrine : No Polyuria, No Polydipsia, No Temperature Intolerance PMFSH Past Medical History Medical History Tobacco use disorder Mood disorder Essential hypertension COPD (chronic obstructive pulmonary disease) Surgical History History 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 Social History Social History Household Members: Other Household Members Other:: friends Housing: House Do you presently have visiting nurse or other home services: No Alcohol intake: current Alcohol intake frequency: 0-2 drinks per day Alcohol type: beer Comment: pt feels relieved of chest discomfort and difficulty breathing Patient Tobacco Use Status: Current everyday Tobacco user Tobacco use type: Cigarette Cigarettes Per Day: 5 Smoked in Last 30 Days: No Use of substances other than those prescribed or required for medical reasons: No Substance Use Type: Marijuana Advance Directives: No Advance Directives Information Provided: No Do you have a plan to hurt others: No Plan service: No Current occupational status: unemployed Physical Exam Vital Signs: Vital Signs: Last Vital Signs Temp 97.8 F 10/02/24 00:00 Pulse 96 10/02/24 00:00 Resp 20 10/02/24 00:00 BP 107/77 10/02/24 00:00 Pulse Ox 97 10/02/24 00:00 O2 Del Method Room Air 10/02/24 00:00 BMI result Body Mass Index 20.0 Const: Other: Appearance: Alert. Oriented X3. No acute distress. Eyes: Pupils equal, round and reactive to light. ENT: Pharynx normal. Neck: Normal inspection. Neck supple. No lymph nodes noted. No crepitus CVS: Normal heart rate and rhythm. Pulses normal. Normal S1 and S2 Respiratory: Patient tachypneic, decreased breath sounds, very minimal wheezing bilaterally, oxygen saturation 98% on room air. Abdomen: Soft and nontender. No rigidity. No distention. Skin: Skin warm and dry. Normal skin color. Normal skin turgor. Extremities: No lower extremity edema. No Lacerations. No Rash Neuro: Oriented X 3. No motor deficit. No sensory deficit. Moving all extremities. No slurred speech. CN 2 through 12 grossly intact Psych: calm, cooperative, normal affect Course Course Course Narrative: Patient receiving additional nebulization treatments, IV Solu-Medrol and magnesium. All of patient's labs and imaging pending Medications Administered Discontinued Medications Generic Name Dose Route Start Last Admin Trade Name Freq PRN Reason Stop Dose Admin Albuterol Sulfate 2.5 mg/ 0 mg 10/01/24 21:25 10/01/24 21:29 Albuterol/Ipratropium 3 ml INHALE 10/01/24 21:26 1 dose ONCE ONE Administration Magnesium Sulfate 2 gm in 50 mls @ 25 mls/hr 10/01/24 21:35 10/01/24 21:56 Magnesium Sulfate/H2o IV 10/01/24 23:34 Infused ONCE ONE Infusion Methylprednisolone Sodium Succinate 125 mg 10/01/24 21:35 10/01/24 21:15 Methylprednisolone Sod Succ 125 Mg/2 Ml Vial IVPUSH 10/01/24 21:36 125 mg ONCE ONE Administration Medical Decision Making Medical Decision Making [facility] Narrative: My interpretation of EKG: Normal sinus tachycardia, heart rate 112, EKGs not the best quality, patient shaking and tachypneic. We will repeat EKG. No signs of STEMI or NSTEMI. After IV treatment and nebulization treatments, patient feeling much better. Patient was ambulated around the emergency room, oxygen saturation stayed above 97% My interpretation of labs: Patient's white blood cell count 8.8, venous blood gases show a normal pH and pCO2, at baseline, sodium slightly decreased at 133, no symptoms. Negative troponin, lactic acid 1.1. Serology negative for influenza RSV or COVID. Chest x-ray does not show any acute abnormality Given patient's past medical history, patient was treated also with the 1st dose of azithromycin. Patient states that he feels well to go home. Blood pressure 107/77, pulse 96, respirations 20, temperature 97.8 degrees, oxygen saturation 97-99% on room air Differential Diagnosis Differential Diagnoses: The differential diagnosis associated with the presentation includes (Chronic lung disease, asthma, viral URI) Admission/Observation Consideration of admission/observation: Escalation of care including admission/observation considered (Patient's past medical history and presentation, observation/admission was considered) Lab Data [facility] Lab Attestation statement: I reviewed the patient's lab results. 10/01/24 21:20 10/01/24 21:20 Labs: Lab Results 10/01/24 10/01/24 Range/Units 21:20 21:28 WBC 8.8 (4.8-10.8) X10*3/uL RBC 4.38 L (4.60-5.80) X10*6/uL Hgb 14.6 (14.0-18.0) g/dl Hct 40.3 L (42.0-52.0) % MCV 92.0 (80.0-98.0) fL MCH 33.3 H (27.0-33.0) pg MCHC 36.2 H (31.0-36.0) g/dl RDW 12.1 (11.0-16.0) % Plt Count 349 (160-400) X10*3/uL MPV 8.3 L (9.4-12.4) fL Immature Gran % (Auto) 0.3 (0.0-0.4) % Neut % (Auto) 71.4 (45-73) % Lymph % (Auto) 18.8 L (20-40) % [place] % (Auto) 8.8 (2-11) % Eos % (Auto) 0.5 (0-4) % Baso % (Auto) 0.2 (0-2) % Lymph # (Auto) 1.7 (1.2-4.9) X10*3/uL [place] # (Auto) 0.8 (0.1-1.2) X10*3/uL Eos # (Auto) 0.0 (0.0-0.4) X10*3/uL Baso # (Auto) 0.0 (0.0-0.2) X10*3/uL Abs Immat Gran (auto) 0.03 (0.00-0.03) X10*3/uL Absolute Neuts (auto) 6.3 (2.0-8.3) x10*3/uL Absolute Nucleated RBC 0.000 (0.0-0.012) X10*3/uL Nucleated RBC % (auto) 0.0 (0.0-0.2) /100WBC VBG pH 7.41 (7.32-7.43) VBG pCO2 43 mmHg VBG pO2 77 mmHg VBG HCO3 28 H (22-26) mmol/L VBG O2 Saturation 94.0 % VBG Base Excess 3.5 mmol/L Sodium 133 L (135-145) mmol/L Potassium 3.9 (3.3-5.1) mmol/L Chloride 101 (96-108) mmol/L Carbon Dioxide 24 (22-29) mmol/L Anion Gap 12 (12-20) BUN 12 (9-16) mg/dL Creatinine 0.70 (0.5-1.4) mg/dL Estim Creat Clear Calc 102.0 Estimated GFR > 60 Random Glucose 66 (60-115) mg/dL Lactic Acid 1.1 (0.5-2.0) mmol/L Calcium 8.9 (8.4-10.2) mg/dL Magnesium 4.0 H* (1.6-2.6) mg/dL Total Bilirubin 0.4 (0.0-1.0) mg/dL AST 34 (5-37) U/L ALT 28 (0-40) U/L Alkaline Phosphatase 60 (39-117) U/L Troponin I High Sens < 2.7 (<3.5-35.0) ng/L B-Natriuretic Peptide 26 (<100) pg/mL Total Protein 7.0 (6.5-8.0) g/dL Albumin 4.4 (3.5-5.0) g/dL Lipase 22 (8-78) U/L Independent Interpretation I performed an independent interpretation of an: Plain X-Ray Radiology Impression Discussion of test interpretation with radiology: I have reviewed the radiologist's reading. Radiologist Impression: Emphysema. No consolidation, pleural effusion or pneumothorax. Normal size heart. No acute fracture. Anterior cervical discectomy and fusion of the lower cervical spine. IMPRESSION: 1. No acute findings. Critical Care Time Critical Care Time Critical Care Time: Yes Total Critical Care Time: 45 Attestation: I have personally provided critical care time. Time includes review of lab data, radiology results, discussion with consultants, and monitoring for potential decompensation. Intervention performed as documented. Discharge Plan Discharge Clinical Impression: Asthma exacerbation with COPD (chronic obstructive pulmonary disease) Patient Disposition: Home, Self-Care Instructions: Asthma (ED), Chronic Lung Disease and Infection Prevention (ED) Additional Instructions: Please follow-up with your primary care physician tomorrow. If you have any worsening or new symptoms, please return to the emergency room or call 911 Prescriptions: New albuterol sulfate 90 mcg/actuation HFA aerosol inhaler 2 puff inhalation Q4-6H PRN (Reason: shortness of breath or wheezing) Qty: 8.5 1RF albuterol sulfate 2.5 mg /3 mL (0.083 %) solution for nebulization 2.5 mg inhalation Q4-6H PRN (Reason: shortness of breath or wheezing) Qty: 75 0RF prednisone 50 mg tablet 50 mg PO DAILY Qty: 4 0RF azithromycin 250 mg tablet 250 mg PO DAILY 4 Days Qty: 4 0RF Rx Instructions: start on day 2 of therapy No Action albuterol sulfate [Proventil HFA] 90 mcg/actuation HFA aerosol inhaler 2 puff inhalation Q4-6H PRN (Reason: shortness of breath or wheezing) Qty: 8.5 0RF prednisone 20 mg tablet 60 mg PO DAILY Qty: 12 0RF lisinopril 10 mg tablet 10 mg PO DAILY metoprolol tartrate 25 mg tablet 12.5 mg PO DAILY lidocaine 5 % adhesive patch,medicated 1 patch topical DAILY PRN (Reason: Pain) paroxetine HCl 40 mg tablet 40 mg PO DAILY prednisone 20 mg tablet 40 mg PO DAILY Qty: 10 0RF azithromycin 250 mg tablet 250 mg PO .nightly 3 Days Qty: 3 0RF Rx Instructions: start on day 2 of therapy albuterol sulfate [Ventolin HFA] 90 mcg/actuation HFA aerosol inhaler 2 puff inhalation Q4H PRN (Reason: Wheezing) Qty: 8.5 2RF budesonide-formoterol [Symbicort] 160-4.5 mcg/actuation HFA aerosol inhaler 2 puff INHALATION BID Qty: 1 2RF Combivent Respimat 20-100 mcg/actuation mist 1 puff INHALATION QID Qty: 4 3RF Print Language: Grenadian
[2024-10-01 21:46] LABS: Lactic Acid 1.1 mmol/L (0.5-2.0)
[2024-10-01 21:52] LABS: B Type Natriuretic Peptide 26 pg/mL (<100)
[2024-10-01 21:54] VITALS: BP 118/80; PULSE 100; RESP 19; O2SAT 96
[2024-10-01 21:55] LABS: Alanine Aminotransferase 28 U/L (0-40); Albumin Level 4.4 g/dL (3.5-5.0); Alkaline Phosphatase 60 U/L (39-117); Anion Gap 12 (12-20); Aspartate Amino Transferase 34 U/L (5-37); Bilirubin Total 0.4 mg/dL (0.0-1.0); Blood Urea Nitrogen 12 mg/dL (9-16); Calcium 8.9 mg/dL (8.4-10.2); Carbon Dioxide 24 mmol/L (22-29); Chloride 101 mmol/L (96-108); Estimated Glomerular Filt Rate > 60; Glucose Random 66 mg/dL (60-115); Lipase 22 U/L (8-78); Potassium 3.9 mmol/L (3.3-5.1); Sodium 133 mmol/L (135-145); Troponin-I High Sensitivity < 2.7 ng/L (<3.5-35.0)
[2024-10-02] VITALS: BP 107/77; PULSE 96; RESP 20; TEMP 36.6; O2SAT 97
--- NOTE | 2024-10-02 00:06 | MHC.EDTECH ---
This pct assumed care of Patient at 2300 ,vitals taken,Per Provider ambulation trial done ,Patient 02sat started at 97 % on room air when standing ,during walking Patient o2 sat remain between 97 -96 % ,Patient was in no apparent distress,Patient back in bed ,And reconnected to color television console monitor , All safety measure in Place .
[2024-10-02] MEDS: Azithromycin 500 MG TABLET PO (00:32)
[2024-10-02 00:39] VITALS: BP 107/77; PULSE 96; RESP 20; TEMP 36.6; O2SAT 97
== END 2024-10-02 00:52 | disposition home or self-care (01) ==
PROVIDERS: Emergency Provider Emergency Medicine
DX: J44.1 Chronic obstructive pulmonary disease with (acute) exacerbation (principal); R06.02 Shortness of breath; F17.210 Nicotine dependence, cigarettes, uncomplicated; Z79.899 Other long term (current) drug therapy
CPT/HCPCS: 36415; 71045; 80053; 82803; 83605; 83690; 83735; 83880; 84484; 85025; 87040; 93005; 94640; 96365; 96375; 99284; 99285; J2919; J3475

== ENCOUNTER → 2024-10-01 21:13 | Outpatient (BNV) | payer OTHER, SELFPAY | PROVIDERS: Emergency Provider Emergency Medicine; Visit Provider Internal Medicine Cardiovascular Disease | DX: R00.0 Tachycardia, unspecified (principal) | CPT/HCPCS: 93010 ==

== ENCOUNTER → 2024-10-01 21:45 | Outpatient (BNV) | payer OTHER, SELFPAY | PROVIDERS: Emergency Provider Emergency Medicine; Visit Provider Radiology Diagnostic Radiology | DX: J44.9 Chronic obstructive pulmonary disease, unspecified (principal); R06.02 Shortness of breath | CPT/HCPCS: 71045 ==

== ENCOUNTER 2024-11-29 13:05 | Outpatient (AMB) | payer MEDICAID, SELFPAY ==
[2024-11-29 13:22] VITALS: BP 128/72; PULSE 100; O2SAT 98; BMI 17.4
--- NOTE | 2024-11-29 13:22 | A.OFFVIS_ITS ---
Vital Signs 11/29/24 13:22 Height 5 ft 10 in Weight 121 lb BMI 17.4 BP 128/72 Blood Pressure Location Lt brachial Position Sitting Pulse 100 Pulse Source Doppler Pulse Oximetry (%) 98 Oxygen Delivery Method Room Air Intake Visit Reasons: copd Allergies No Known Allergies [No Known Allergies*] Allergy (Verified 11/29/24 13:26) HPI HPI copd: Details: 64-year-old gentleman, active 35+ pack-year smoker, trying to quit, with likely underlying COPD and multiple admissions for COPD exacerbations referred for pulmonary evaluation. Patient has been using Symbicort Combivent, MDZulema / zay with suboptimal his symptoms. He denies having recent pulmonary function testing . 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 Social History (Updated 11/29/24 @ 13:29 by Laurie Chin [facility]) Household Members: Other Household Members Other:: friends Housing: House Do you presently have visiting nurse or other home services: No Alcohol intake: current Alcohol intake frequency: 0-2 drinks per day Alcohol type: beer Comment: pt feels relieved of chest discomfort and difficulty breathing Patient Tobacco Use Status: Current everyday Tobacco user Tobacco use type: Cigarette Cigarettes Per Day: 2 Years Smoked: started age 27, 1PPD, Substance Use Type: Marijuana service: No Current occupational status: unemployed Review of Systems Const Denies daytime sleepiness, Denies excessive sweating, Denies fatigue, Denies fever(s), Denies lethargy, Denies malaise, Denies night sweats, Denies snoring and Denies weight loss Eyes Denies blurry vision and Denies itchy eyes ENT Denies nasal congestion, Denies post nasal drip, Denies sinus pain, Denies sinus pressure and Denies other ( Thrush) Card Denies chest pain, Denies pedal edema, Denies dyspnea, Denies orthopnea and Denies paroxysmal nocturnal dyspnea Resp Denies cough, Denies hemoptysis, Denies excessive phlegm production, Denies dyspnea, Denies snoring and Denies wheezing GI Denies abdominal pain and Denies heartburn Musc Denies myalgias, Denies arthralgias and Denies joint swelling Skin/Breast Denies rash Neuro Denies memory loss and Denies seizure-like activity Psych Denies abnormal sleep pattern, Denies anxiety and Denies memory loss Endo Denies excessive sweating, Denies fatigue and Denies heat intolerance Raza/Lymph Denies easy bruising Aller/Immun Denies itchy eyes, Denies seasonal rhinorrhea and Denies wheezing Physical Exam Vital Signs: Last Vital Signs Pulse 100 11/29/24 13:22 BP 128/72 11/29/24 13:22 Pulse Ox 98 11/29/24 13:22 Oxygen Delivery Method Room Air 11/29/24 13:22 BMI result Body Mass Index 17.4 Const General: no acute distress and alert Nutritional Appearance: not obese Orientation/consciousness: Other orientation findings ( oriented) HEENT Head: Yes atraumatic Eyes General: appearance normal, both eyes and all related structures Sclerae: sclerae normal EOM: EOMs intact bilaterally Neck Neck: Yes supple Lymphatic: no lymphadenopathy noted Resp Effort & Inspection: normal respiratory effort and no use of accessory muscles Auscultation: clear to auscultation bilaterally Cardio Rate: regular rate Rhythm: regular rhythm Heart sounds: no gallops, no murmurs and no rubs Skin General skin exam: other ( warm) Extrem General: No clubbing, No cyanosis and No edema Assessment & Plan Assessment & Plan (1) COPD (chronic obstructive pulmonary disease): Code(s): J44.9 - Chronic obstructive pulmonary disease, unspecified Category: Medical Plan: Will switch Symbicort and Combivent to Trelegy. Continue albuterol MDI. Start duo nebs and theophylline. Will obtain full PFT. (2) Tobacco use disorder: Code(s): F17.200 - Nicotine dependence, unspecified, uncomplicated Category: Medical Plan: Will obtain lung cancer screening CT chest. Orders: Orders PFT pulmonary function test Today J44.9 - Chronic obstructive pulmonary disease, unspecified CT lung screening Today F17.200 - Nicotine dependence, unspecified, uncomplicated Medications: New theophylline ER 400 mg PO DAILY 30 tabs 6RF ipratropium-albuterol 0.5 mg-3 mg(2.5 mg base)/3 mL 3 mL inhalation Q4-6H PRN 180 mL 6RF wheezing kladavbtcso-yycsppbli-zujhnibc 200-62.5-25 mcg (Trelegy Ellipta) 1 inh inhalation DAILY 1 ea 6RF Refilled albuterol sulfate 90 mcg/actuation 2 puffs inhalation Q4-6H PRN 1 ea 6RF shortness of breath or wheezing Discontinued albuterol sulfate 90 mcg/actuation (Ventolin HFA) Discontinued Reason: Doctor's Order 2 puffs inhalation Q4H PRN 8.5 grams 2RF Wheezing ipratropium-albuterol 20-100 mcg/actuation (Combivent Respimat) Discontinued Reason: Doctor's Order 1 puff inhalation QID 4 grams 3RF prednisone Discontinued Reason: Doctor's Order 60 mg (3 x 20 mg) PO DAILY 12 tabs 0RF albuterol sulfate Discontinued Reason: Doctor's Order 2.5 mg (3 mL) inhalation Q4-6H PRN 75 mL 0RF shortness of breath or wheezing azithromycin start on day 2 of therapy Discontinued Reason: Doctor's Order 250 mg PO .nightly 3 days 3 tabs 0RF prednisone Discontinued Reason: Doctor's Order 40 mg (2 x 20 mg) PO DAILY 10 tabs 0RF budesonide-formoterol 160-4.5 mcg/actuation (Symbicort) Discontinued Reason: Doctor's Order 2 puffs inhalation BID 1 ea 2RF albuterol sulfate 90 mcg/actuation (Proventil HFA) Discontinued Reason: Doctor's Order 2 puffs inhalation Q4-6H PRN 8.5 grams 0RF shortness of breath or wheezing azithromycin start on day 2 of therapy Discontinued Reason: Doctor's Order 250 mg PO DAILY 4 days 4 tabs 0RF prednisone Discontinued Reason: Doctor's Order 50 mg PO DAILY 4 tabs 0RF Coding Level of Care Code New Pt Level 4 (71535) Diagnoses COPD (chronic obstructive pulmonary disease) J44.9 Tobacco use disorder F17.200
--- OUTSIDE RECORDS SUMMARY | 2024-11-29 16:37 | XMS_ITS | Encounter Summary ---
Author Organization [facility] Address [address] [place] [address] Care Team Providers Care Barrel Roller Operator Name Role Phone Shayne Hess MD Primary Care Provider [phone] Reason for Visit * Reason Comments Med Refill Encounter Details Date Type Department Care Team (Late st Contact Info) Description 11/08/2024 Refill [facility] Primary Care [address] [place] [phone] Digna Gonzáles PA [address] [place] [address] COPD with acute exacerbation (HCC) Social History Tobacco Use Types Packs/Day Years Used Date Smoking Tobacco: Former Cigarettes 1 30 0 10/16/1988 - 10/16/2018 Smokeless Tobacco: Never Comments:light smoker Alcohol Use Standard Drinks/Week Comments Yes 20 (1 standard drink = 0.6 oz pu re alcohol) Sex and Gender Information Value Date Recorded Sex Assigned at Male 07/09/2024 10:47 AM EDT Legal Sex Male 3:37 AM EDT Gender Identity Not on file Sexual Orientation Not on file documented as of this encounter Plan of Treatment Scheduled Procedures Name Priority Associated Diagnoses Date/Ti me COLONOSCOPY SCREENING, HIGH RISK WITH POSSIBLE MODERATE SEDATION Hx of colonic polyps documented as of this encounter Visit Diagnoses Diagnosis COPD with acute exacerbation (HCC) documented in this encounter Care Teams Barrel Roller Operator Relationship Specialty Start Date End Date Shayne Hess MD [address] [place] [address] [phone] PCP - General Family Medicine 09/20/19 documented as of this encounter
--- OUTSIDE RECORDS SUMMARY | 2024-11-29 16:37 | XMS_ITS | Encounter Summary ---
Author Organization [facility] Address [address] [place] [address] Care Team Providers Care Magnaflux Operator Name Role Phone Shayne Hess MD Primary Care Provider [phone] Reason for Visit * Reason Onset Date Comments Book Appt 11/07/2020 Encounter Details Date Type Department Care Team (Late st Contact Info) Description 11/07/2020 Telephone [facility] Central Scheduling Department [address] [place] [phone] Telephone Intake, Staff Book Appt Social History Tobacco Use Types Packs/Day Years Used Date Smoking Tobacco: Former Cigarettes Q uit: 10/16/2018 Smokeless Tobacco: Never Comments:light smoker Alcohol Use Standard Drinks/Week Comments Not Currently 0 (1 standard drink = 0.6 oz pur e alcohol) Sex and Gender Information Value Date Recorded Sex Assigned at Male 07/09/2024 10:47 AM EDT Legal Sex Male 3:37 AM EDT Gender Identity Not on file Sexual Orientation Not on file documented as of this encounter Miscellaneous Notes * Telephone Encounter - Bruna Martines - 11/11/2020 9:24 AM EST Notifed this was auto generated and will be waiting until December to be scheduled Scheduled a fu for copd * Telephone Encounter - Aubrey Shepherd Max - 11/07/2020 3:49 PM EST Patient calling states that he got a letter in the mail to book an appt. When asked what kind of appt, he couldn't answer that question other than to say just to come in and see Dr. Hess. Jamin can be reached at [phone]. documented in this encounter Plan of Treatment Scheduled Procedures Name Priority Associated Diagnoses Date/Ti me COLONOSCOPY SCREENING, HIGH RISK WITH POSSIBLE MODERATE SEDATION Hx of colonic polyps documented as of this encounter Visit Diagnoses Not on filedocumented in this encounter Care Teams Magnaflux Operator Relationship Specialty Start Date End Date Shayne Hess MD [address] [place] [id number] PCP - General Family Medicine 09/20/19 documented as of this encounter
--- OUTSIDE RECORDS SUMMARY | 2024-11-29 16:37 | XMS_ITS | Clinical Summary ---
Author Organization [facility] Address [address] [place] [address] Care Team Providers Care Legal Advisor Name Role Phone Shayne Hess MD Primary Care Provider + [phone] Allergies No known active allergies Medications inhalational spacing device Use with albuterol (Proair) inhaler. 07/20/20 16 Active gabapentin (NEURONTIN) 800 mg tablet TAKE 1 TABLET(800 MG) BY MOUTH AT BEDTIME 30 tablet 2 07/06/20 21 Active lisinopriL (PRINIVIL,ZESTRI L) 10 mg tablet TAKE 1 TABLET(10 MG) BY MOUTH EVERY DAY 90 tablet 3 02/07/20 24 Active PARoxetine (PAXIL) 40 mg tablet TAKE 1 TABLET(40 MG) BY MOUTH EVERY MORNING 90 tablet 3 05/17/20 24 Active ipratropium-albu teroL (DUO-NEB) 0.5-2.5 mg/3 mL nebulizer solutionIndicati ons:Chronic obstructive pulmonary disease, unspecified COPD type (HCC) INHALE 1 VIAL VIA NEBULIZER EVERY 4-6 HOURS NEEDED FOR SHORNESS OF BREATH 90 mL 3 07/24/20 24 Active ipratropium-albu teroL (Combivent Respimat) 20-100 mcg/actuation inhalerIndicatio ns:Chronic obstructive pulmonary disease, unspecified COPD type (HCC) INHALE 1 PUFF BY MOUTH FOUR TIMES DAILY 4 g 5 07/24/20 24 Active metoprolol tartrate (LOPRESSOR) 25 mg tablet TAKE 1/2 TABLET(12.5 MG) BY MOUTH TWICE DAILY 90 tablet 1 08/31/20 24 Active nicotine (NICODERM CQ) 21 mg/24 hr patchIndications :Cigarette nicotine dependence without complication Place 1 patch on the skin every 24 hours. 30 patch 3 10/05/19 25 Active ipratropium-albu teroL (Combivent Respimat) 20-100 mcg/actuation inhalerIndicatio ns:Chronic obstructive pulmonary disease, unspecified COPD type (HCC) INHALE 1 PUFF BY MOUTH FOUR TIMES DAILY 4 g 5 10/05/19 25 Active lidocaine (LIDODERM) 5% patchIndications :Healthcare maintenance Apply 1 patch topically to the affected area once a day. Remove and discard patch within 12 hours or as directed. 30 patch 3 10/05/19 25 Active albuterol (PROAIR HFA,VENTOLIN HFA) 90 mcg inhalerIndicatio ns:Chronic obstructive pulmonary disease with acute exacerbation (HCC),COPD exacerbation (HCC),Chronic obstructive pulmonary disease, unspecified COPD type (HCC),COPD with acute exacerbation (HCC) Inhale 2 puffs (180 mcg total) by mouth every 4 hours as needed for wheezing or shortness of breath. Use with spacer. 18 g 11 10/05/19 25 Active budesonide-formo teroL (Symbicort) 160-4.5 mcg inhalerIndicatio ns:COPD with acute exacerbation (HCC) INHALE 2 PUFFS BY MOUTH TWICE DAILY. RINSE MOUTH WITH WATER AFTER USE. DO NOT SWALLOW 10.2 g 5 11/08/19 25 Active budesonide-formo teroL (Symbicort) 160-4.5 mcg inhalerIndicatio ns:COPD with acute exacerbation (HCC) INHALE 2 PUFFS BY MOUTH TWICE DAILY. RINSE MOUTH WITH WATER AFTER USE. DO NOT SWALLOW 10.2 g 5 10/05/19 25 025 Discontinued Active Problems Problem Noted Date Diagnosed Date Healthcare maintenance 06/07/2021 Assessment & Plan (06/07/2021 1:40 AM EDT): 60-year-old male with history of COPD and depression here for health maintenance visit. Has not had colonoscopy done as scheduled, last colonoscopy done in 2009 did find polyps and so he does need a repeat colonoscopy. I have ordered this for him. He has not yet gotten the COVID-19 vaccine but is willing to do so; unfortunately, we do not have it available here at the clinic but I counseled him on where to get it and advised him that it would be beneficial for his health. He does need his tetanus booster which was administered at this visit as well as his flu shot which was also administered at this visit. He had health maintenance labs drawn in November 2020 including a CMP, lipid panel, and hemoglobin A1c that were all unremarkable. Overall, stable and doing well, will continue to follow-up as needed Nicotine dependence 09/08/2016 Poor weight gain in adult 08/26/2016 Hypertension 08/05/2016 Assessment & Plan (06/04/2022 2:41 PM EDT): Patient has history of high blood pressure with high blood pressure today in clinic. Blood pressure was rechecked at the end the visit and was 140/90. He has been taking lisinopril 10 mg without any side effects. We will continue him at this dose and he will follow-up as needed. A BMP was ordered today to check on kidney function specifically creatinine and potassium. Assessment & Plan (06/07/2021 1:41 AM EDT): Patient with hypertension with elevated blood pressure in the clinic, will have patient check his blood pressures at home twice daily for 1 week, write these down and report back to us on what his blood pressures are averaging. Should his blood pressures remain elevated at home, will consider increasing his metoprolol or adding in a different blood pressure medication that is more effective at controlling his blood pressure. Restless legs 06/18/2016 Lower extremity pain 05/27/2016 Depression 02/26/2016 Assessment & Plan (06/07/2021 1:41 AM EDT): Patient with depressed mood with diminishing benefit from his Paxil 30 mg daily. Will increase to 40 mg daily. He has not had any side effects from the Paxil. Chronic pain 08/10/2013 Pain, foot Right 11/14/2012 Overview (06/07/2017): RT 1ST TOE PAIN Assessment & Plan (06/04/2022 2:40 PM EDT): Patient is experiencing pain associated with phantom toes . He is interested in trying lidocaine patches for 12 hours a day. Lidocaine patches were prescribed and he will follow-up as needed. Injury, crush, foot 10/07/2010 Obstructive chronic bronchitis with acute exacer bation 07/18/2008 Chronic bronchitis 07/18/2008 Chronic asthmatic bronchitis 07/18/2008 Resolved Problems Problem Noted Date Diagnosed Date Resolved Date Rib sprain, subsequent encounter 10/12/2017 06/04/2021 Assessment & Plan (10/12/2017 3:12 PM EST): Patient with left-sided rib pain after a fall. X-rays done in office do not show any acute fractures on initial read, and patient continues to breathe without difficulty and continue his daily activities. Suggested physical therapy for stretching exercises but patient declined. Will call back if the x-rays are showing an acute fracture but even in this case there is not much to do other than for rated to heal. Possibly a brace. Recommended taking Tylenol and ibuprofen as needed for symptom control and gentle exercises. 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 017 Stye 01/07/2017 08/21/2017 Electrolyte disturbance 08/05/201605/20 Insomnia 06/14/2016 06/04/2021 Hyperkalemia 05/25/2016 06/04/2021 Chronic use of opiate for therapeutic purpose 03/07/20 16 06/04/2021 Internal hemorrhoids 09/01/2009 021 Former smoker 07/18/2008 08/21/2017 Encounters Date Type Department Care Team Description 11/08/2024 Refill [facility] [address] [place] [phone] Digna Gonzáles PA COPD with acute exacerbation (HCC) 10/05/2024 2:00 PM EST Follow-Up [facility] [address] [place] [address] Digna Gonzáles, PA Obstructive chronic bronchitis with acute exacerbation (Primary Dx); COPD exacerbation (HCC); Cigarette nicotine dependence without complication; Chronic obstructive pulmonary disease, unspecified COPD type (HCC); COPD with acute exacerbation (HCC); Healthcare maintenance 10/04/2024 Orders Only [facility] [address] [place] [phone] Digna Gonzáles, PA 10/03/2024 Telephone [facility] [address] [place] [phone] Perlita Baldwin RN PAC Clinical Assessment 08/31/2024 Refill [facility] [address] [place] [phone] Digna Gonzáles, PA from Last 3 Months Immunizations Immunization Administration Dates Next Due Influenza, Injectable, Quadr ivalent, Preservative Free 06/04/2021,07/17/2018,07/26/2017 Pneumococcal Polysaccharide Vaccine, 23 Valent 09/21/2017 Tetanus Toxoid, Adsorbed 09/19/2007,09/19/1994 Tetanus and Diphtheria Toxoi ds, Adsorbed, Preservative Free (2 Lf of Tetanus Toxoid and 2 Lf of Diphtheria Toxoid) 06/04/2021 Family History Medical History Relation Name Comments COPD Brother Myocardial Infarction Father Cancer Sister 1 Breast cancer Sister 2 Relation Name Status Comments Brother Father Mother Sister 1 Sister 2 Alive Social History Tobacco Use Types Packs/Day Years Used Date Smoking Tobacco: Former Cigarettes 1 30 0 10/16/1988 - 10/16/2018 Smokeless Tobacco: Never Tobacco Cessation:Counseling Given: Not Answered Comments:light smoker Alcohol Use Standard Drinks/Week Comments Yes 20 (1 standard drink = 0.6 oz pu re alcohol) Sex and Gender Information Value Date Recorded Sex Assigned at Male 07/09/2024 10:47 AM EDT Legal Sex Male 3:37 AM EDT Gender Identity Not on file Sexual Orientation Not on file Last Filed Vital Signs Vital Sign Reading Time Taken Comments Blood Pressure 172/107 10/05/2024 2:19 PM EST Pulse 108 10/05/2024 2:19 PM EST Temperature 36.9 ??C (98.4 ??F) 02/17/2018 2:15 PM ED T Respiratory Rate 20 10/05/2024 1:53 PM EST Oxygen Saturation 98% 10/05/2024 1:53 PM EST Inhaled Oxygen Concentration - - Weight 60.3 kg (133 lb) 07/24/2024 9:13 AM EST Height 177.8 cm (5' 10 ) 07/24/2024 9:13 AM EST Body Mass Index 19.08 07/24/2024 9:13 AM EST Plan of Treatment Scheduled Procedures Name Priority Associated Diagnoses Date/Ti me COLONOSCOPY SCREENING, HIGH RISK WITH POSSIBLE MODERATE SEDATION Hx of colonic polyps Health Maintenance Due Date Last Done Comments HIV Screening 1960 Colonoscopy 11/06/2012 11/06/2009 Zoster Vaccines (1 of 2) 2012 Pneumococcal Vaccine: 50+ Years (2 of 2 - PCV) 09/21/2018 09/21/2017 CT Lung Cancer Screening (12 months, previous LungRADS 1 or 2) 11/16/2018 11/16/2017 DTaP,Tdap,and Td Vaccines (1 - Tdap) 06/05/2021 06/04/2021 RSV Vaccine (60+ years old and patients) (1 - Risk 60-74 years 1-dose series) 2022 Basic Metabolic Panel 06/04/2023 06/04/2022 , 12/02/2020, 05/27/2016, Additional history exists COVID-19 Vaccine (1 - 2023- season) 2024 Influenza Vaccine (#1) 2024 , 07/17/2018, 07/26/2017 Alcohol/Substance Use Screening 09/19/2024 Depression Evaluation 09/19/2024 Oral Health Screening 09/19/2024 Social Drivers of Health Annual Screening 09/19/2024 Hepatitis C Screening Completed 12/02/2020 Hepatitis B Vaccines Aged Out No long er eligible based on patient's age to complete this topic Procedures * Due to [place] state law, this organization might not be sharing negative HIV tests. Procedure Name Priority Date/Time Associated Diagnosis Comments BASIC METABOLIC PANEL Routine 06/04/2022 2:27 PM EDT Healthcare maintenance HEPATITIS C ANTIBODY W/REFLEX TO HCV RNA, QUANTITATIVE PCR Routine 12/02/2020 3:48 PM EDT Healthcare maintenance CT LUNG CANCER SCREENING BASELINE Routine 11/16/2017 12:47 PM EST Personal history of tobacco use, presenting hazards to health COLONOSCOPY 11/06/2009 9:06 AM EST from Last 3 Months or Most Recently Relevant to Health Maintenance Results * Due to [place] state law, this organization might not be sharing negative HIV tests. * (ABNORMAL) Basic metabolic panel (06/04/2022 2:27 PM EDT) NA 134(L) 135 - 145 mmol/L 06/04/2022 6:51 PM EDT [facility] K 4.7 3.5 - 5.3 mmol/L 06/04/2022 6:51 PM EDT [facility] Cl 97 97 - 110 mmol/L 06/04/2022 6:51 PM EDT [facility] CO2 27 24 - 32 mmol/L 06/04/2022 6:51 PM EDT [facility] BUN 9 7 - 23 mg/dL 06/04/2022 6:51 PM EDT [facility] Creatinine 0.76 0.60 - 1.30 mg/dL 06/04/2022 6:51 PM EDT [facility] Glucose 103(H) 70 - 99 mg/dL 06/04/2022 6:51 PM EDT [facility] Calcium 9.5 8.7 - 10.7 mg/dL 06/04/2022 6:51 PM EDT [facility] Anion Gap 10 5 - 15 06/04/2022 6:51 PM EDT [facility] eGFR >90 >=90 mL/min/1. 73m2 06/04/2022 6:51 PM EDT [facility] Comment: Estimated Glomerular Filtration Rate (GFR) calculated using the CKD-EPI refit equation. The different stages of CKD form a continuum. The stages of CKD are classified as follows : Stage 1: Kidney damage with normal or increased GFR (>90 mL/min/1.73 m2) Stage 2: Mild reduction in GFR (60-89 mL/min/1.73 m2) Stage 3a: Moderate reduction in GFR (45-59 mL/min/1.73 m2) Stage 3b: Moderate reduction in GFR (30-44 mL/min/1.73 m2) Stage 4: Severe reduction in GFR (15-29 mL/min/1.73 m2) Stage 5: Kidney failure (GFR < 15 mL/min/1.73 m2 or dialysis) Blood Structure of peripheral vein / Unknown Venipuncture / Unknown 06/04/2022 2:27 PM EDT 06/04/2022 2:27 PM EDT us Óscar Gama MD LAB BLOOD ORDERABLES Final Re sult [facility] [address] [place] [address], * Hepatitis C Antibody w/Reflex to HCV RNA, Quantitative PCR (12/02/2020 3:48 PM EDT) Hepatitis C Antibody NON-REACT ALPESH NON-REACT ALPESH 12/03/2020 6:31 PM EDT [facility] Signal To Cut-Off 0.01 <1.00 12/03/2020 6:31 PM EDT [facility] Comment: HCV antibody was non-reactive. There is no laboratory evidence of HCV infection. In most cases, no further action is required. However, if recent HCV exposure is suspected, a test for HCV RNA (test code 64101) is suggested. For additional information please refer to http://education.Ducksboard/faq/ZTF35j1 (This link is being provided for informational/ educational purposes only.) Blood Structure of peripheral vein / Unknown Venipuncture / Unknown 12/02/2020 3:48 PM EDT 12/02/2020 3:48 PM EDT Narrative ERIN JOHNSON - 12/03/2020 6:31 PM EDT [facility] Received Date: Shayne Hess MD LAB BLOOD ORDERABLES Final R esult ERIN JOHNSON [address], [place] [address], [place] [phone] [facility] [address], [address] [facility] [address], [place] [phone] * CT Lung Screening (11/16/2017 12:47 PM EST) Anatomical Region Laterality Modality Body Computed Tomogra phy 11/20/2017 4:13 PM EST Impressions 11/20/2017 4:18 PM EST IMPRESSION: Negative screen, no significant abnormalities Lung-RADS: ?? Category: ??Lung-RADS: 1: Negative - (< 1% probability of malignancy) Management: Continual annual screening with LDCT in 12 months Findings: ?? -No lung nodules or nodule(s) with benign calcification pattern Modifier: None Notes: Negative screen definition: Categories 1 and 2 Positive screen definition: Categories 3 and 4 Negative screen does not mean that an individual does not have lung cancer Category 3 and 4A nodules that are unchanged on interval CT should be coded as category 2, and individuals returned to screening in 12 months I have personally reviewed these images and agree with the above report. [id number] Up-to-date CT equipment and radiation dose reduction techniques were employed. CTDIvol: 1.6 mGy. DLP: 58 mGy-cm. Narrative 11/20/2017 4:18 PM EST EXAM: CT LUNG SCREENING CLINICAL INFORMATION: LUNG CANCER SCREENING Z87.891 - I10 - Personal history of nicotine dependence COMPARISON: None TECHNIQUE: ??Non-enhanced chest CT. ??Images were acquired with helical acquisition, and low dose technique : Multiplanar reconstructions, including MIP, MINIP and Slab images were reviewed. Note that Low Dose Technique uses a low level of radiation exposure that provides adequate lung detail but limited image quality in the mediastinum and upper abdomen. For radiation dose control at least one of the following techniques was used in this procedure (1) Automated exposure control (2) Adjustment of the mA and/or kV according to patient size (3) Use of iterative reconstruction technique FINDINGS: LUNGS: PanAcinar emphysema. No non-calcified pulmonary nodule(s) CHEST WALL: Normal UPPER ABDOMEN: ?? Normal LOWER NECK: Normal MEDIASTINUM AND BAO: Normal ESOPHAGUS: Normal HEART: No cardiomegaly. No pericardial effusion. Multifocal four-vessel coronary artery calcification. AORTA: Mild atherosclerosis without aneurysm PULMONARY VESSELS: Normal AIRWAY: Normal PLEURA: Normal BONES: Normal Deondre Powell MD IMG CT PROCEDURES Final Result * COLONOSCOPY (11/06/2009 9:06 AM EST) Narrative Procedure Note Wiliam Basilio MD M[facility] - 11/06/2009 9:06 AM EST Patient Name: Jamin Magaña Procedure Date: 11/06/2009 9:06 AM Date of : 1960 Admit Type: Outpatient Age: 48 Room: Room 2 Gender: Male Note Status: Finalized Attending MD: Wiliam Basilio MD Procedure: Colonoscopy Indications: Screening for colorectal malignant neoplasm, Hematochezia Providers: Wiliam Basilio MD (Doctor) Referring MD: Angelina Andrade MD (Referring MD) Requesting Provider: Medicines: Midazolam 4 mg IV, Fentanyl 100 micrograms IV Complications: No immediate complications Estimated Blood Loss: Estimated blood loss: none. Procedure: Pre-Anesthesia Assessment: - Prior to the procedure, a History and Physical was performed, and patient medications and allergies were reviewed. The patient is competent. The risks andbenefits of the procedure and the sedation options and riskswere discussed with the patient. All questions were answered and informed consent was obtained. Patientidentification and proposed procedure were verified by the physicianin the endoscopy suite. Mental Status Examination: alertand oriented. Airway Examination: normal oropharyngealairway and neck mobility. Respiratory Examination: clear to auscultation. CV Examination: normal. Prophylactic Antibiotics: The patient does not require prophylactic antibiotics. Prior Anticoagulants: The patient hastaken no previous anticoagulant or antiplatelet agents. ASA Grade Assessment: II - A patient with mild systemic disease. After reviewing the risks and benefits, the patient was deemed in satisfactory condition to undergo the procedure. The anesthesia plan was to use moderate sedation / analgesia (conscious sedation). Immediately prior to administration of medications, the patient was re-assessed for adequacy to receive sedatives. Theheart rate, respiratory rate, oxygen saturations, blood pressure, adequacy of pulmonary ventilation, andresponse to care were monitored throughout the procedure. The physical status of the patient was re-assessed afterthe procedure. After I obtained informed consent, the scope was passed under direct vision. Throughout the procedure, the patient's blood pressure, pulse, and oxygen saturations were monitored continuously. The pcf 160 AL Olympus colonoscope serial # [id number] was introduced through the anus and advanced to the terminal ileum. Thecolonoscopy was performed without difficulty. The patient tolerated the procedure well. The quality of the bowelpreparation was excellent. The bowel preparation used wasMoviPrep. Findings: The perianal and digital rectal examinations were normal. Pertinent negatives include no palpable rectal lesions. A pedunculated polyp was found in the sigmoid colon. The polyp was 5mm in size. The polyp was removed with a hot snare. Resection andretrieval were complete. A pedunculated and sessile polyp was found in the sigmoid colon. The polyp was 5 mm in size. The polyp was removed with a hot snare. Resection and retrieval were complete. A pedunculated polyp was found in the sigmoid colon. The polyp was 7mm in size. The polyp was removed with a hot snare. Resection andretrieval were complete. A pedunculated polyp was found in the recto-sigmoid colon. The polypwas 10 mm in size. The polyp was removed with a hot snare. Resection and retrieval were complete. The terminal ileum appeared normal. The exam was otherwise normal throughout the examined colon. No additional abnormalities were found on retroflexion. Impression: - One 5 mm polyp in the sigmoid colon. Resected and retrieved. - One 5 mm polyp in the sigmoid colon. Resected and retrieved. - One 7 mm polyp in the sigmoid colon. Resected and retrieved. - One 10 mm polyp in the recto-sigmoid colon. Resectedand retrieved. - The examined portion of the ileum was normal. Recommendation: - Repeat colonoscopy in 3 years for surveillance. Wiliam Basilio MD 11/06/2009 10:27:11 AM This report has been signed electronically. Number of Addenda: 0 Note Initiated On: 11/06/2009 9:06 AM us Wiliam Basilio MD [facility] PROVATION PROCEDURES Final Re sult from Last 3 Months or Most Recently Relevant to Health Maintenance Insurance [facility] MEDICAID Care Teams Legal Advisor Relationship Specialty Start Date End Date Shayne Hess MD [address] [place] [address] [place] [address] PCP - General Family Medicine 09/20/19
--- OUTSIDE RECORDS SUMMARY | 2024-11-29 16:37 | XMS_ITS | Referral Summary ---
Author Organization [facility] Address [address] [place] [address] Care Team Providers Care Detail Assembler Name Role Phone Shayne Hess MD Primary Care Provider [phone] Encounters Date Type Department Care Team Description 11/08/2024 Refill [facility] [address] [place] [phone] Digna Gonzáles, PA COPD with acute exacerbation (HCC) 10/05/2024 2:00 PM EST Follow-Up [facility] [address] [place] [address] [phone] Digna Gonzáles, PA Obstructive chronic bronchitis with acute exacerbation (Primary Dx); COPD exacerbation (HCC); Cigarette nicotine dependence without complication; Chronic obstructive pulmonary disease, unspecified COPD type (HCC); COPD with acute exacerbation (HCC); Healthcare maintenance 10/04/2024 Orders Only [facility] [address] [place] [phone] Digna Gonzáles, PA 10/03/2024 Telephone [facility] [address] [place] [address] [phone] Perlita Baldwin, CASA PAC Clinical Assessment 08/31/2024 Refill [facility] [address] [place] [phone] Digna Gonzáles, PA from Last 3 Months Allergies No known active allergies Medications inhalational [...] hemorrhoids 09/01/2009 021 Former smoker 07/18/2008 08/21/2017 Immunizations Immunization Administration Dates Next Due Influenza, Injectable, Quadr ivalent, Preservative Free 06/04/2021,07/17/2018,07/26/2017 Pneumococcal Polysaccharide Vaccine, 23 Valent 09/21/2017 Tetanus Toxoid, Adsorbed 09/19/2007,09/19/1994 Tetanus and Diphtheria Toxoi ds, Adsorbed, Preservative Free (2 Lf of Tetanus Toxoid and 2 Lf of Diphtheria Toxoid) 06/04/2021 Social History Tobacco Use Types Packs/Day Years [...] POSSIBLE MODERATE SEDATION Hx of colonic polyps Procedures * Due to [facility] law, this organization might not be sharing [...] to Health Maintenance Results * Due to [place] [employer] law, this organization might not be sharing negative HIV tests. * (ABNORMAL) Basic metabolic panel (06/04/2022 2:27 PM EDT) NA 134(L) 135 - 145 mmol/L 06/04/2022 6:51 PM EDT [facility] K 4.7 3.5 - 5.3 mmol/L 06/04/2022 6:51 PM EDT [facility] Cl 97 97 - 110 mmol/L 06/04/2022 6:51 PM EDT [facility] CO2 27 24 - 32 mmol/L 06/04/2022 6:51 PM EDT [facility] BUN 9 7 - 23 mg/dL 06/04/2022 6:51 PM EDT [facility] Creatinine 0.76 0.60 - 1.30 mg/dL 06/04/2022 6:51 PM EDT [facility] Glucose 103(H) 70 - 99 mg/dL 06/04/2022 6:51 PM EDT [facility] Calcium 9.5 8.7 - 10.7 mg/dL 06/04/2022 6:51 PM EDT [facility] Anion Gap 10 5 - 15 06/04/2022 6:51 PM EDT [facility] eGFR >90 >=90 mL/min/1. 73m2 06/04/2022 6:51 PM EDT [facility] Comment: Estimated Glomerular Filtration [...] MD LAB BLOOD ORDERABLES Final Re sult [facility] [address] [place] [address], * Hepatitis C Antibody w/Reflex to HCV RNA, Quantitative PCR (12/02/2020 3:48 PM EDT) Hepatitis C Antibody NON-REACT ALPESH NON-REACT ALPESH 12/03/2020 6:31 PM EDT [facility] Signal To Cut-Off 0.01 <1.00 12/03/2020 6:31 PM EDT [facility] Comment: HCV antibody was non-reactive. There is no laboratory evidence of HCV infection. In most cases, no further action is required. However, if recent HCV exposure is suspected, a test for HCV RNA (test code 65388) is suggested. For additional information please refer to http://education.Diagnoplex/faq/RAQ19q3 (This link is being provided for informational/ educational purposes only.) Blood Structure of peripheral vein / Unknown Venipuncture / Unknown 12/02/2020 3:48 PM EDT 12/02/2020 3:48 PM EDT Narrative ERIN JOHNSON - 12/03/2020 6:31 PM EDT [facility] Received Date:[id number] Shayne Hess MD LAB BLOOD ORDERABLES Final R esult [facility] [address], [place] [address], [facility] [address] [facility] [address], [place] [address], * CT Lung Screening (11/16/2017 12:47 PM [...] images and agree with the above report. [id number] Up-to-date CT equipment and radiation dose reduction [...] pcf 160 [place] Olympus colonoscope serial # [id number] was introduced through the anus and advanced [...] 0 Note Initiated On: 11/06/2009 9:06 AM Wiliam Basilio MD MPH PROVATION PROCEDURES Final Re sult from Last 3 Months or Most Recently Relevant to Health Maintenance [place] [address] [place] [address] MEDICAID Care Teams Detail Assembler Relationship Specialty Start Date End Date Shayne Hess MD [address] [place] [phone] PCP - General Family Medicine 09/20/19
--- OUTSIDE RECORDS SUMMARY | 2024-11-29 16:37 | XMS_ITS | Data Portability ---
Author Organization [place] [facility] Address [address] [place] [address] Assessment No assessment recorded. Plan of Treatment Reminders Order Date Submit Date Provider Last Modified By Organization Details Last Modified Time Details Appointments None record ed. Lab None record ed. Referral None record ed. Procedures None record ed. Surgeries None record ed. Imaging None record ed. Medication Orders None record ed. Patient TargetsNo targets recorded. Patient InstructionsNo instructions recorded. Reason for Referral None Reported. Medical Equipment None Reported. Vitals None Recorded Social History None recorded. Functional Status None recorded. Mental Status None recorded. Family History Nothing Reported. Medical History No medical history recorded. Past Encounters Encounter ID Performer Location Encounter Start Date Encounter Closed Date Diagnosis/Indication Diagnosis SNOMED-CT Code Diagnosis ICD10 Code Diagnosis Note [id number] [address] [phone] 08/07/2018 12:17:44 08/07/2018 12:18:31 Health Concerns Section Related Observation LastModified by Organization Detai ls LastModified Time None Recorded Concern Status LastModified by Organization Details LastModified Time None Recorded Advance Directives Directive None Recorded Payers Encounter Date Sequence Insurance Name Policy Number Policy Chester Covered Member ID Chester Member ID Guarantor Name 07/26/2018 1 MEDICA[place]: [id number] Jamin Magaña [id number] Jamin Magaña
== END 2024-11-29 13:43 | disposition home or self-care (01) ==
LOC: HO.HPS 13:06
PROVIDERS: Visit Provider Internal Medicine Pulmonary Disease
DX: J44.9 Chronic obstructive pulmonary disease, unspecified (principal); F17.200 Nicotine dependence, unspecified, uncomplicated
CPT/HCPCS: 99204

== ENCOUNTER → 2024-11-29 13:05 | Outpatient (BNVA) | payer OTHER, SELFPAY | PROVIDERS: Visit Provider Internal Medicine Pulmonary Disease | DX: J44.9 Chronic obstructive pulmonary disease, unspecified (principal); F17.210 Nicotine dependence, cigarettes, uncomplicated | CPT/HCPCS: 99202 ==

== ENCOUNTER 2025-01-04 12:12 | Outpatient (REF) | payer OTHER, SELFPAY ==
--- NOTE | 2025-01-04 12:51 | PFT_ITS ---
Indication: COPD Spirometry [FEV1 to FVC 30%; FEV1 1.13 L; FVC 3.8 L. no significant response to bronchodilators noted.] Lung Volumes [Total lung capacity 124% predicted; residual volume 216% predicted] Diffusion Capacity [DLCO 51% predicted] Comparisons [none] Interpretation [There is an obstructive ventilatory defect consistent with very severe COPD. No significant response to bronchodilators noted. Lung volumes with a trend of hyperinflation and significant air trapping due to the above. The patient has a moderate diffusion impairment. Clinical correlation warranted.] MTDD
--- OUTSIDE RECORDS SUMMARY | 2025-01-04 13:04 | XMS_ITS | Clinical Summary ---
Author Organization [facility] Address [address] [place] [address] Care Team Providers Care Machinist First Class Name Role Phone Shayne Hess MD Primary Care Provider [phone] Allergies No known active allergies Medications inhalational spacing device Use with albuterol (Proair) inhaler. 6 Active gabapentin (NEURONTIN) 800 mg tablet TAKE 1 TABLET(800 MG) BY MOUTH AT BEDTIME 30 tablet 2 1 Active lisinopriL (PRINIVIL,ZESTRIL ) 10 mg tablet TAKE 1 TABLET(10 MG) BY MOUTH EVERY DAY 90 tablet 3 4 Active PARoxetine (PAXIL) 40 mg tablet TAKE 1 TABLET(40 MG) BY MOUTH EVERY MORNING 90 tablet 3 4 Active ipratropium-albut Eva (DUO-NEB) 0.5-2.5 mg/3 mL nebulizer solutionIndicatio ns:Chronic obstructive pulmonary disease, unspecified COPD type (HCC) INHALE 1 VIAL VIA NEBULIZER EVERY 4-6 HOURS NEEDED FOR SHORNESS OF BREATH 90 mL 3 4 Active ipratropium-albut Eva (Combivent Respimat) 20-100 mcg/actuation inhalerIndication s:Chronic obstructive pulmonary disease, unspecified COPD type (HCC) INHALE 1 PUFF BY MOUTH FOUR TIMES DAILY 4 g 5 4 Active metoprolol tartrate (LOPRESSOR) 25 mg tablet TAKE 1/2 TABLET(12.5 MG) BY MOUTH TWICE DAILY 90 tablet 1 4 Active nicotine (NICODERM CQ) 21 mg/24 hr patchIndications: Cigarette nicotine dependence without complication Place 1 patch on the skin every 24 hours. 30 patch 3 5 Active ipratropium-albut Eva (Combivent Respimat) 20-100 mcg/actuation inhalerIndication s:Chronic obstructive pulmonary disease, unspecified COPD type (HCC) INHALE 1 PUFF BY MOUTH FOUR TIMES DAILY 4 g 5 5 Active lidocaine (LIDODERM) 5% patchIndications: Healthcare maintenance Apply 1 patch topically to the affected area once a day. Remove and discard patch within 12 hours or as directed. 30 patch 3 5 Active albuterol (PROAIR HFA,VENTOLIN HFA) 90 mcg inhalerIndication s:Chronic obstructive pulmonary disease with acute exacerbation (HCC),COPD exacerbation (HCC),Chronic obstructive pulmonary disease, unspecified COPD type (HCC),COPD with acute exacerbation (HCC) Inhale 2 puffs (180 mcg total) by mouth every 4 hours as needed for wheezing or shortness of breath. Use with spacer. 18 g 11 5 Active budesonide-formot Eva (Symbicort) 160-4.5 mcg inhalerIndication s:COPD with acute exacerbation (HCC) INHALE 2 PUFFS BY MOUTH TWICE DAILY. RINSE MOUTH WITH WATER AFTER USE. DO NOT SWALLOW 10.2 g 5 5 Active Active Problems Problem Noted Date Diagnosed Date [...] Type Department Care Team Description 11/08/2024 Refill [facility] Primary Care [address] [place] [phone] Dinga Gonzáles, PA COPD with acute exacerbation from Last 3 Months Immunizations Immunization Administration [...] COVID-19 Vaccine (1 - 2023- season) 2024 Alcohol/Substance Use Screening 09/19/2024 Depression Screening and Follow-Up 09/19/2024 07/24/2024 Oral Health Screening 09/19/2024 Social Drivers of Health Annual Screening 09/19/2024 Influenza Vaccine (Season Ended) 2025 06/04/2021, 07/17/2018, 07/26/2017 Hepatitis C Screening Completed 12/02/2020 Hepatitis B Vaccines Aged Out No long er eligible based on patient's age to complete this topic Procedures * Due to [place] [employer] law, this organization might not be sharing [...] to Health Maintenance Results * Due to [place] [employer] law, this organization might not be sharing negative HIV tests. * (ABNORMAL) Basic metabolic panel (06/04/2022 2:27 PM EDT) NA 134(L) 135 - 145 mmol/L 06/04/2022 6:51 PM EDT [facility] K 4.7 3.5 - 5.3 mmol/L 06/04/2022 6:51 PM EDT [facility] Cl 97 97 - 110 mmol/L 06/04/2022 6:51 PM EDT [facility] CO2 27 24 - 32 mmol/L 06/04/2022 6:51 PM EDT [facility] BUN 9 7 - 23 mg/dL 06/04/2022 6:51 PM EDT [facility] Creatinine 0.76 0.60 - 1.30 mg/dL 06/04/2022 6:51 PM EDT [facility] Glucose 103(H) 70 - 99 mg/dL 06/04/2022 6:51 PM EDT [facility] Calcium 9.5 8.7 - 10.7 mg/dL 06/04/2022 6:51 PM EDT [facility] Anion Gap 10 5 - 15 06/04/2022 6:51 PM EDT [facility] eGFR >90 >=90 mL/min/1. 73m2 06/04/2022 6:51 PM EDT [facility] Comment: Estimated Glomerular Filtration [...] MD LAB BLOOD ORDERABLES Final Re sult [facility] [address] [place] [address], * Hepatitis C Antibody w/Reflex to HCV RNA, Quantitative PCR (12/02/2020 3:48 PM EDT) Hepatitis C Antibody NON-REACT ALPESH NON-REACT ALPESH 12/03/2020 6:31 PM EDT [facility] Signal To Cut-Off 0.01 <1.00 12/03/2020 6:31 PM EDT [facility] Comment: HCV antibody was non-reactive. There is no laboratory evidence of HCV infection. In most cases, no further action is required. However, if recent HCV exposure is suspected, a test for HCV RNA (test code 99880) is suggested. For additional information please refer to http://education.iPayment/faq/TTC45b5 (This link is being provided for informational/ educational purposes only.) Blood Structure of peripheral vein / Unknown Venipuncture / Unknown 12/02/2020 3:48 PM EDT 12/02/2020 3:48 PM EDT Narrative ERIN JOHNSON - 12/03/2020 6:31 PM EDT [facility] Received Date:[id number] Shayne Hess MD LAB BLOOD ORDERABLES Final R esult [facility] [address] [facility] [address], [place] [address], [facility] [address] [facility] [address], [place] [address], * CT Lung Screening (11/16/2017 12:47 PM [...] images and agree with the above report. [id number] Up-to-date CT equipment and radiation dose reduction [...] PLEURA: Normal BONES: Normal Deondre Powell MD IM CT PROCEDURES Final Result * COLONOSCOPY (11/06/2009 [...] pcf 160 [place] Olympus colonoscope serial # [id number] was introduced through the anus and advanced [...] Most Recently Relevant to Health Maintenance Insurance [facility] MEDICAID Care Teams Machinist First Class Relationship Specialty Start Date End Date Shayne Hess MD [address] [place] [address] PCP - General Family Medicine 09/20/19
--- OUTSIDE RECORDS SUMMARY | 2025-01-04 13:04 | XMS_ITS | Data Portability ---
Author Organization [place] [facility] Address [address] [place] [address] Assessment No assessment recorded. Plan of Treatment [...] SNOMED-CT Code Diagnosis ICD10 Code Diagnosis Note [id number] [address] [phone] 08/07/2018 12:17:44 08/07/2018 12:18:31 Health Concerns Section Related Observation LastModified by Organization Detai ls LastModified Time None Recorded Concern Status LastModified by Organization Details LastModified Time None Recorded Advance Directives Directive None Recorded Payers Encounter Date Sequence Insurance Name Policy Number Policy Chester Covered Member ID Chester Member ID Guarantor Name 07/26/2018 1 MEDICAID-[place]: [facility] Jamin Magaña [id number] Jamin Magaña
--- OUTSIDE RECORDS SUMMARY | 2025-01-04 13:04 | XMS_ITS | Referral Summary ---
Author Organization [facility] Address [address] [place] [address] Care Team Providers Care Credit Control Officer Name Role Phone Shayne Hess MD Primary Care Provider [phone] Encounters Date Type Department Care Team Description 11/08/2024 Refill [facility] Primary Care [address] [place] [phone] Digna Gonzáles PA COPD with acute exacerbation from Last 3 Months Allergies No known [...] of colonic polyps Procedures * Due to [place] [employer] law, this organization might not be sharing [...] to Health Maintenance Results * Due to [place] [employer] law, this organization might not be sharing negative HIV tests. * (ABNORMAL) Basic metabolic panel (06/04/2022 2:27 PM EDT) NA 134(L) 135 - 145 mmol/L 06/04/2022 6:51 PM EDT [facility] K 4.7 3.5 - 5.3 mmol/L 06/04/2022 6:51 PM EDT [facility] Cl 97 97 - 110 mmol/L 06/04/2022 6:51 PM EDT [facility] CO2 27 24 - 32 mmol/L 06/04/2022 6:51 PM EDT [facility] BUN 9 7 - 23 mg/dL 06/04/2022 6:51 PM EDT [facility] [employer] [facility] Creatinine 0.76 0.60 - 1.30 mg/dL 06/04/2022 6:51 PM EDT [facility] Glucose 103(H) 70 - 99 mg/dL 06/04/2022 6:51 PM EDT [facility] Calcium 9.5 8.7 - 10.7 mg/dL 06/04/2022 6:51 PM EDT [facility] Anion Gap 10 5 - 15 06/04/2022 6:51 PM EDT [facility] eGFR >90 >=90 mL/min/1. 73m2 06/04/2022 6:51 PM EDT [facility] Comment: Estimated Glomerular Filtration [...] 2:27 PM EDT 06/04/2022 2:27 PM EDT Óscar Gama MD LAB BLOOD ORDERABLES Final Re sult Performing Organization Address [facility] Co de Phone Number [facility] [employer] [facility] [address] [place] [address], [place] * Hepatitis C Antibody w/Reflex to HCV RNA, Quantitative PCR (12/02/2020 3:48 PM EDT) Hepatitis C Antibody NON-REACT ALPESH NON-REACT ALPESH 12/03/2020 6:31 PM EDT [facility] Signal To Cut-Off 0.01 <1.00 12/03/2020 6:31 PM EDT [facility] Comment: HCV antibody was non-reactive. There is no laboratory evidence of HCV infection. In most cases, no further action is required. However, if recent HCV exposure is suspected, a test for HCV RNA (test code 77246) is suggested. For additional information please refer to http://education.[place]/faq/VXJ36k7 (This link is being provided for informational/ educational purposes only.) Blood Structure of peripheral vein / Unknown Venipuncture / Unknown 12/02/2020 3:48 PM EDT 12/02/2020 3:48 PM EDT Narrative [facility] - 12/03/2020 6:31 PM EDT [facility] Received Date: Shayne Hess MD LAB BLOOD ORDERABLES Final R esult Performing Organization Address City/[facility]/ZIP Co de Phone Number ER[facility] [address] [facility] [address], [place] [address], [employer] [facility] [address] [facility] [address], [place] [address], * CT Lung Screening (11/16/2017 12:47 PM [...] images and agree with the above report. [id number] Up-to-date CT equipment and radiation dose reduction [...] pcf 160 [place] Olympus colonoscope serial # [id number] was introduced through the anus and advanced [...] Most Recently Relevant to Health Maintenance Insurance [place] MEDICAID Care Teams Credit Control Officer Relationship Specialty Start Date End Date Shayne Hess MD [address] [place] [phone] PCP - General Family Medicine 09/20/19
--- OUTSIDE RECORDS SUMMARY | 2025-01-04 13:04 | XMS_ITS | Encounter Summary ---
Author Organization [facility] Address [address] [place] [address] Care Team Providers Care Slip Cover Sewer Name Role Phone Shayne Hess MD Primary Care Provider [phone] Reason for Visit * Reason Onset Date Comments Book Appt 11/07/2020 Encounter Details Date Type Department Care Team (Late st Contact Info) Description 11/07/2020 Telephone [facility] Central Scheduling Department [address] [place] [phone] Telephone Intake, Staff Book Appt Social History [...] Dr. Hess. Jamin can be reached at [phone]. documented in this encounter Plan of Treatment Scheduled Procedures Name Priority Associated Diagnoses Date/Ti me COLONOSCOPY SCREENING, HIGH RISK WITH POSSIBLE MODERATE SEDATION Hx of colonic polyps documented as of this encounter Visit Diagnoses Not on filedocumented in this encounter Care Teams Slip Cover Sewer Relationship Specialty Start Date End Date Shayne Hess MD [address] [place] [phone] PCP - General Family Medicine 09/20/19 documented as of this encounter
[2025-01-04 13:38] VITALS: PULSE 75; O2SAT 98
== END 2025-01-04 12:13 | disposition home or self-care (01) ==
LOC: HO.RESP 12:12
PROVIDERS: Visit Provider Internal Medicine Pulmonary Disease
DX: J44.9 Chronic obstructive pulmonary disease, unspecified (principal)
CPT/HCPCS: 94010; 94640; 94727; 94729

== ENCOUNTER → 2025-01-04 12:51 | Outpatient (BNV) | payer OTHER, SELFPAY | PROVIDERS: Visit Provider Hospitalist | DX: J44.9 Chronic obstructive pulmonary disease, unspecified (principal) | CPT/HCPCS: 94060; 94727; 94729 ==

== ENCOUNTER → 2025-01-15 13:17 | Outpatient (BNVA) | payer OTHER, SELFPAY | PROVIDERS: Visit Provider Internal Medicine Pulmonary Disease ==